=== PATIENT | female | born 1950 | race Caucasian/White ===

== ENCOUNTER → 2017-02-17 | Outpatient (CLI) | payer OTHER ==
[~2017-02-17] MED LIST: ACCUNEB SO1.25 MG/1 INH; AMBIEN 5 MG TABL5 M1 PO; ASPIRIN81 M2 PO; BENADRYL25 MG PO; BUDEPRION SR150 MG PO; BUMETANIDE0.25 MG/1 IM; BUMETANIDE2 MG PO; BUMEX2 MG PO; BUPROPION XL150 MG PO; CARVEDILOL3.125 MG PO; CLARITIN10 MG PO; COMPAZINE10 MG PO; CORTEF10 MG PO; CORTEF5 MG PO; DOXYCYCLINE 10100 M1 PO; DOXYCYCLINE 10100 MG PO; DULCOLAX5 MG PO; DUONEB 2.5-0.5 M3 ML INH; FENTANYL PA25 MCG/HR TP; FISH OIL 1,0001 EAC5 PO; FLOMAX0.4 MG PO; FLONASE 0.05%50 MCG NASAL; FLORINEF ACETA0.1 MG PO; FLUVIRIN IM; FOLIC ACID1 MG PO; HUMALOG MI100 UNIT/1 SQ; HUMALOG MI100 UNIT/1 SUBQ; HUMALOG MI100 UNIT/7 SQ; HYDRALAZINE 10M10 MG PO; IMDUR 60 MG TAB60 M1 PO; KLOR-CON 1010 MEQ PO; LANTUS SOL100 UNIT/1 SUBQ; LANTUS SQ; LASIX 80 MG TAB80 MG PO; LEVOTHYROXIN0.125 M1 PO; LEVOXYL25 MCG PO; MACROBID 100 M100 M2 PO; MILK OF MA2400 MG/10 PO; NEPHRO-VITE RX1 TA1 PO; NEPHROCAPS SOFT1 CAP PO; ONDANSETRON HCL4 M2 PO; PACERONE 200 M200 MG PO; POTASSIUM20 PO; PROTONIX40 M1 PO; RED YEAST RICE600 M1 PO; RENA-VITE RX T1 EACH PO; ROBITUSSIN100 MG/53 PO; SYNTHROID150 MCG PO; SYNTHROID25 MCG PO; TUMS E.S.750 MG PO; TYLENOL325 MG PO; VAN500AD IV; VAN500AD IVPB; VANCOMYCIN500 MG/VIA IV; VITAMIN D-32000 UNIT PO; VITAMIN D1000 UNI1 PO; VITAMIN D3400 UNIT PO; WELCHOL 625 MG625 M1 PO; WELLBUTRIN SR150 MG PO; XANAX 0.25 MG0.25 MG PO; XARELTO15 MG PO; ZAROXOLYN 5MG TA5 MG PO; ZYRTEC10 M2 PO; ZYRTEC10 M4 PO
== END ==
LOC: M.WC 01:48
DX: E11.621 Type 2 diabetes mellitus with foot ulcer (principal); L97.521 Non-pressure chronic ulcer of other part of left foot limited to breakdown of skin; E11.42 Type 2 diabetes mellitus with diabetic polyneuropathy; E11.22 Type 2 diabetes mellitus with diabetic chronic kidney disease; I50.22 Chronic systolic (congestive) heart failure; N18.4 Chronic kidney disease, stage 4 (severe); I87.2 Venous insufficiency (chronic) (peripheral); E03.8 Other specified hypothyroidism; Z68.27 Body mass index [BMI] 27.0-27.9, adult; Z86.711 Personal history of pulmonary embolism; Z98.41 Cataract extraction status, right eye; Z98.42 Cataract extraction status, left eye; Z90.49 Acquired absence of other specified parts of digestive tract

== ENCOUNTER → 2017-03-03 | Outpatient (CLI) | payer OTHER | LOC: M.WC 03-02 09:00 | DX: E11.621 Type 2 diabetes mellitus with foot ulcer (principal); L97.521 Non-pressure chronic ulcer of other part of left foot limited to breakdown of skin; E11.42 Type 2 diabetes mellitus with diabetic polyneuropathy; I87.2 Venous insufficiency (chronic) (peripheral); E03.8 Other specified hypothyroidism; E11.22 Type 2 diabetes mellitus with diabetic chronic kidney disease; N18.4 Chronic kidney disease, stage 4 (severe); I50.22 Chronic systolic (congestive) heart failure; Z68.27 Body mass index [BMI] 27.0-27.9, adult ==

== ENCOUNTER → 2017-03-10 | Outpatient (CLI) | payer OTHER | LOC: M.WC 01:13 | DX: E11.621 Type 2 diabetes mellitus with foot ulcer (principal); L97.521 Non-pressure chronic ulcer of other part of left foot limited to breakdown of skin; I87.2 Venous insufficiency (chronic) (peripheral); E11.42 Type 2 diabetes mellitus with diabetic polyneuropathy; I50.22 Chronic systolic (congestive) heart failure; E03.9 Hypothyroidism, unspecified; E11.22 Type 2 diabetes mellitus with diabetic chronic kidney disease; N18.4 Chronic kidney disease, stage 4 (severe) ==

== ENCOUNTER → 2017-03-17 | Outpatient (CLI) | payer OTHER ==
[2017-03-17 07:58] LABS: POTASSIUM 4.2 mmol/L (3.5-5.1)
== END ==
LOC: M.LAB 04:00
PROVIDERS: Anesthesiology
DX: E11.9 Type 2 diabetes mellitus without complications (principal); Z99.2 Dependence on renal dialysis

== ENCOUNTER 2017-03-25 01:48 | Inpatient (IN) | payer OTHER ==
[~2017-03-25] VITALS: Ht 177.8 cm; Wt 87.1 kg
[~2017-03-25 01:48] MED LIST changes: -BUMETANIDE2 MG PO; -LEVOXYL25 MCG PO; -VAN500AD IVPB; -VANCOMYCIN500 MG/VIA IV; -XARELTO15 MG PO
[2017-03-25 12:00] VITALS: BP 115/72
[2017-03-25 13:39] LABS: ABSOLUTE EOSINOPHILS 0.2 thou/uL (0.0-0.7); ABSOLUTE LYMPHOCYTES 1.9 thou/uL (0.8-5.3); ABSOLUTE MONOCYTES 0.7 thou/uL (0.0-1.2); ABSOLUTE NEUTROPHILS 7.1 thou/uL (1.6-8.1); BASOPHILS 0.4 %; EOSINOPHILS 1.6 %; HEMATOCRIT 38.9 % (37.0-47.0); HEMOGLOBIN 12.3 gm/dL (12.0-15.0); LYMPHOCYTES 18.9 %; MCH 27.5 pg (26.0-34.0); MCHC 31.7 g/dL (28.0-37.0); MCV 86.6 fL (80.0-100.0); MONOCYTES 7.4 %; MPV 10.9 fl. (7.2-11.1); NUCLEATED RBCS 0 /100WBC; PLATELET COUNT* 160 thou/uL (150-400); POLYS 71.7 %; RBC 4.49 mil/uL (4.20-5.00); RDW-CV 14.7 % (10.5-14.5); WBC 9.9 thou/uL (4.0-11.0)
[2017-03-25 13:48] LABS: CALCIUM 8.8 mg/dL (8.5-10.1); CREATININE 1.8 mg/dL (0.6-1.3); POTASSIUM 4.1 mmol/L (3.5-5.1)
[2017-03-25 13:52] LABS: TOTAL BILIRUBIN 0.5 mg/dL (<0.1-1.0)
--- NOTE | 2017-03-25 14:53 | NUR ---
Nutrition: Concult received for open foot wound. Back in [facility], pt had blister on foot; since had gangrenous changes. On vancomycin, insulin. Seen in wound clinic. H/o DM, cellulitis of bilat feet, CHF, renal failure, PVD. Labs: albumin 3, BG 161, BUN 25, creat 1.8. Usual wt is ~200#. Increased nutrient needs related to wound healing as evidenced by open wound on foot. RD will order Arginaid packets for wound healing BID. RECOMMEND MVI OR VIT C, VIT A AND ZINC SUPPLEMENTS FOR WOUND HEALING. Consider Mild risk at this time. Will follow up per protocol.
[2017-03-25 19:45] VITALS: BP 121/65
--- NOTE | 2017-03-25 20:15 | NUR ---
DIRECT ADMIT PT FROM WOUND CLINIC ARRIVED TO AT 1112 VIA PT OWN/PRIVATE W/C. PT A&O X4, SMILING, COOPERATIVE, TALKATIVE. VSS ON RA, PT RIGHT FOOT WITH OPEN WOUND FROM SWELLING AND SKIN OPENING UP, PT DIABETIC AND DID NOT FEEL FOOT UNTIL FLUIDS DRIPPED FROM RIGHT FOOT. PT HAS BEEN WITH WOUND CLINIC FOR LEFT FOOT WHICH IS PRESENTLY PARTIALLY HEALED, LEFT FOOT TOES REMAINED DRESSED. BOTH FEET WERE DRESSED AT WOUND CLINIC PRIOR TO ADMISSION, C/D/I. CONSULTS I.D./DR. SHAW, VASCULAR, WOUND NURSE. PT HAD BEEN WITH HOME HEALTH CARE UNTIL ADMISSION. SPOUSE AT BEDSIDE. ADMISSION COMPLETED. IV STARTED IN LEFT UPPER ARM/22 GAUGE, FLUIDS AND ABT INFUSING, SEE MAR. HOURLY ROUNDING AND ACCU CHECKS COMPLETED. OCCASIONAL SHARP, SHOOTING PAIN BILATERALLY IN FEET, TYLENOL EFFECTIVE. MULTIPLE ABT ALLERGIES, USE CAUTION R/T ALLERGIES. PT UP ONE ASSIST TO BSC, PIVOT ON LEFT FOOT. LCTAB, PERRL, AFEBRILE. REPORT TO ACTIVITIES SPECIALIST FOR CONTINUED CARES.
[2017-03-26 04:30] LABS: ABSOLUTE EOSINOPHILS 0.2 thou/uL (0.0-0.7); ABSOLUTE LYMPHOCYTES 1.6 thou/uL (0.8-5.3); ABSOLUTE MONOCYTES 0.6 thou/uL (0.0-1.2); ABSOLUTE NEUTROPHILS 5.2 thou/uL (1.6-8.1); BASOPHILS 0.4 %; EOSINOPHILS 2.8 %; HEMATOCRIT 34.2 % (37.0-47.0); HEMOGLOBIN 11.1 gm/dL (12.0-15.0); LYMPHOCYTES 20.7 %; MCH 27.9 pg (26.0-34.0); MCHC 32.5 g/dL (28.0-37.0); MCV 85.6 fL (80.0-100.0); MONOCYTES 7.5 %; MPV 10.8 fl. (7.2-11.1); NUCLEATED RBCS 0 /100WBC; PLATELET COUNT* 142 thou/uL (150-400); POLYS 68.6 %; RBC 3.99 mil/uL (4.20-5.00); RDW-CV 14.6 % (10.5-14.5); WBC 7.5 thou/uL (4.0-11.0)
[2017-03-26 04:54] LABS: CALCIUM 8.3 mg/dL (8.5-10.1); CREATININE 1.7 mg/dL (0.6-1.3); POTASSIUM 3.9 mmol/L (3.5-5.1)
--- NOTE | 2017-03-26 05:04 | NUR ---
PT SLEPT AT INTERVALS DURING THE NIGHT, IV FLUIDS AND ANTIBIOTICS GIVEN, PLEASANT, UP ASSIST TO THE BSC, FEET WRAPPED, PRN TYLENOL GIVEN FOR HEADACHE WITH RELIEF, CALL LIGHT IN REACH, BED ALARM ON FOR SAFETY, WILL CONTINUE TO MONITOR
[2017-03-26 07:40] VITALS: BP 113/58
--- NOTE | 2017-03-26 07:53 | CON ---
[address] [address] CONSULTATION Name: ESTHER MIX Room: [address] IN .R.#: [id number] Admission: 03/25/17 Attend Phys: Selvin Vaughn MD Discharge: Date of : 46 Report #: [id number] THIS REPORT FOR: //name// CC: Selvin Vaughn Katlyn Tello DATE OF SERVICE: 03/25/2017 ATTENDING PHYSICIAN: Selvin Vaughn MD REASON FOR EVALUATION: Right distal lower extremity wounds complicated by skin and soft tissue infection and possible deeper involvement. HISTORY OF PRESENT ILLNESS: Chart reviewed. The patient examined. This 66-year-old woman whom I am familiar with, I saw her back in June. She has diabetes mellitus type 2, insulin requiring with severe complications including renal dysfunction, also peripheral neuropathy and vasculopathy who had a longstanding wound involving her left foot she developed without antecedent injury that she is aware of, open wound that drained over the course of the last few hours prior to her admission. She denies significant pain. She has not been systemically ill. No fever or chills. Appetite has been satisfactory. No pulmonary or gastrointestinal related complaints. She is undergoing evaluation. Blood cultures are collected, foot culture did show rare white cells, although many gram-positive cocci. She does have a history of oxacillin-resistant Staph aureus on contralateral foot back in 10/2016. She is empirically started on vancomycin. ALLERGIES: LISTED TO OXYCODONE, CIPROFLOXACIN, CEPHALOSPORINS, PENICILLIN, SULFA, QUINOLONES, CODEINE AND MORPHINE. MEDICATIONS: Include pantoprazole, vancomycin, enoxaparin, carvedilol, hydrocortisone, bupropion, insulin, cholecalciferol, levothyroxine, folic acid and p.r.n. ondansetron. PAST MEDICAL HISTORY: As described above, the diabetes mellitus with severe sequelae. He has had cardiomyopathy with history of congestive heart failure, cardiac dysrhythmias, has an implanted defibrillator was complicated by a staphylococcal infection, has some retinopathy, hypothyroidism and mitral regurgitation. SOCIAL HISTORY: Nonsmoker and no ethanol. FAMILY HISTORY: Noncontributory. REVIEW OF SYSTEMS: As above. Denies any pulmonary [place] [address] CONSULTATION Name: ESTHER MIX Room: [address]#: [id number] Admission: 03/25/17 Attend Phys: Selvin Vaughn MD Discharge: Date of : 46 Report #: [id number] PHYSICAL EXAMINATION: GENERAL: Appears somewhat chronically ill, undernourished, is pleasant, cooperative, in mild distress. VITAL SIGNS: Pending. Otherwise stable. HEENT: Unremarkable. NECK: Supple. LUNGS: Diminished breath sounds. Few scattered crackles at the bases. HEART: Irregular. I do not appreciate a murmur. ABDOMEN: Soft, nontender and nondistended. She has a dressing over her right foot. GENITOURINARY: Deferred. RECTAL: Deferred. LABORATORY DATA: Lactic acid 1.7. Electrolytes: Sodium 136, potassium 4.1, chloride 104, bicarbonate is 23, BUN and creatinine 25 and 1.8. LFTs are unremarkable. Albumin of 3.0. Total protein 7.0. Estimated GFR of 28. CBC: White count 9.9, H and H 12.3 and 38.9 and platelets of 160. Cultures as described above. ASSESSMENT: Distal right lower extremity skin and soft tissue infection. Evaluation in progress. Certainly may track deeper. At this point, I do not have any imaging studies. Continue empiric therapy. She has a history of MRSA, last fall and gram-positive cocci on Gram stain. She has had multiple hypersensitivities as well. Thank you. We will follow. Noted vascular surgery to evaluate. <ELECTRONICALLY SIGNED> By: Jonathan Perez MD 03/26/17 0753 1556 [id number] Perez MD /nt
[2017-03-26 08:22] VITALS: BP 119/83
--- NOTE | 2017-03-26 09:45 | NUR ---
ASSUMED CARES. ASSESSMENT PERFORMED AND DOCUMENTED. IV FLUIDS ARE RUNNING. A&OX4 DENIES PAIN, DIFFICULTY BREATHING, WANTS AND NEEDS. RIGHT AND LEFT FOOT ARE WRAPPED. WILL INSPECT WITH WOUND CARE. SPOUSE AT BED SIDE. CALL LIGHT IS IN REACH AND BED IN LOWEST POSITION. GOAL TO CONTROL PAIN. WILLC ONTINUE WITH PLAN OF CARE
--- NOTE | 2017-03-26 11:05 | NUR ---
SW met with pt and pt bedside to complete initial assessment, introduce self, and SW role. Pt alert, oriented, pleasant. Pt lives at home with . Pt has history with [facility] , Binh BRISENO, [facility] and pt has a walker. SW to continue to follow to assist with safe dc planning.
--- NOTE | 2017-03-26 11:43 | NUR ---
WOUND CARE NOTE: CONSULT RECEIVED FOR RIGHT FOOT WOUND, OLD WOUND LEFT FOOT. DRESSING WAS JUST CHANGED BY VASCULAR, WILL DEFER ASSESSMENT. SPOKE WITH DR. WADE, WOUND CARE ORDERS FROM WOUND CENTER STARTED.
--- NOTE | 2017-03-26 13:19 | 2DMMODE ---
[place] [address] 2 D/M-MODE ECHOCARDIOGRAM Name: ESTHER MIX Room: [address] IN [facility]#: [id number] Admission: 03/25/17 Attend Phys: Selvin Vaughn, Discharge: Date of : 46 Date of Service: 03/26/17 1318 Report #: [id number] THIS REPORT FOR: //name// APPROVED REPORT Study performed: 03/26/2017 11:28:28 EXAM: Comprehensive 2D, Doppler, and color-flow Echocardiogram Patient Location: In-Patient Room #: [facility] Status: routine BSA: 2.05 HR: 67 bpm BP: 119/83 mmHg Rhythm: NSR Other Information Study Quality: Fair Indications Atrial Fibrillation Cardiomyopathy 2D Dimensions IVSd: 12.81 (7-11mm) LVOT Diam: 18.79 (18-24mm) LVDd: 57.35 mm PWd: 10.72 (7-11mm) Ascending Ao: 30.41 (22-36mm) LVDs: 40.49 (25-40mm) Aortic Root: 36.54 mm Volumes Left Atrial Volume (Systole) LA ESV Index: 33.20 mL/m2 Aortic Valve AoV Peak Seamus.: 1.38 m/s AO Peak Gr.: 7.56 mmHg LVOT Max P.18 mmHg AO Mean Gr.: 4.35 mmHg LVOT Mean P.39 mmHg LVOT Max V: 0.89 m/s AO V2 VTI: 30.31 cm LVOT Mean V: 0.53 m/s CODY (VTI): 1.77 cm2 LVOT V1 VTI: 19.33 cm Mitral Valve E/A Ratio: 0.70 MV Decel. Time: 311.68 [place] [address] 2 D/M-MODE ECHOCARDIOGRAM Name: ESTHER MIX Room: [address] IN [facility]#: [id number] Admission: 03/25/17 Attend Phys: Selvin Vaughn, Discharge: Date of : 46 Date of Service: 03/26/17 1318 Report #: [id number] MV E Max Seamus.: 0.82 m/s MV PHT: 90.39 ms MVA (PHT): 2.43 cm2 TDI E/Lateral E': 13.67 E/Medial E': 13.67 Medial E' Seamus.: 0.06 m/s Lateral E' Seamus.: 0.06 m/s Pulmonary Valve PV Peak Seamus.: 0.92 m/s PV Peak Gr.: 3.42 mmHg Tricuspid Valve TR Peak Gr.: 23.98 mmHg RVSP: 28.00 mmHg Left Ventricle Left ventricle is mildly dilated.. There is global hypokinesis of the left ventricle. There is normal left ventricular wall thickness. Left ventricular systolic function is mildly decreased. LVEF is 25-30%. Grade I - abnormal relaxation pattern. Right Ventricle The right ventricle is normal size. The right ventricular systolic function is normal. Pacemaker lead is present in the right ventricle. Atria Left atrium is mildly dilated. The right atrium size is normal. Aortic Valve The aortic valve is normal in structure. No aortic regurgitation is present. There is no aortic valvular stenosis. Mitral Valve The mitral valve is normal in structure. Mild mitral regurgitation. No evidence of mitral valve stenosis. Tricuspid Valve The tricuspid valve is normal in structure. Mild tricuspid regurgitation. The RVSP is 35____ mmHg. Pulmonic Valve Pulmonic valve is not well visualized. There is no pulmonic valvular regurgitation[place] [address] 2 D/M-MODE ECHOCARDIOGRAM Name: ESTHER MIX Room: [address] IN [facility]#: [id number] Admission: 03/25/17 Attend Phys: Selvin Vaughn, Discharge: Date of : 46 Date of Service: 03/26/17 1318 Report #: [id number] The aortic root is normal in size. IVC is not well visualized. Pericardium There is no pericardial effusion. <Conclusion> Left ventricle is mildly dilated.. LVEF is 25-30%. Mild mitral regurgitation. There is global hypokinesis of the left ventricle. <ELECTRONICALLY SIGNED> By: Chilo Norris MD, FACC 03/26/17 1318 1318 1318 Chilo Norris MD, FACC /INF
--- NOTE | 2017-03-26 17:59 | NUR ---
ASSUMED CARE OF PT AT APPROXIMATELY 1645. REPORT RECEIVED FROM NETTIE TEJADA. THIS RN AGREES WITH PREVIOUS OPERATOR WEAPON LOCATING RADAR. PT JUST FINISHED WITH ABDOMINAL AORTIC ULTRASOUND. DIET RE ORDERED FOR DINNER AND PT GIVEN 1700 COREG ALONG WITH HOME POTASSIUM. REFER TO EMAR. PT BLOOD GLUCOSE 108 AND DIDNT REQUIRE INSULIN. PT CALLS APPROPRIATELY. A&0X4. DENIES ANY PAIN OR SHORTNESS OF BREATH AT THIS TIME. ON RA SAT UPPER 90'S. MED/SURG STATUS. MEDICATIONS PER APR. PT REPOSITIONED EVERY 2 HOURS FOR COMFORT. HOURLY ROUNDING OBSERVED. BED IN LOW POSITION. CALL LIGHT WITHIN REACH. WILL CONTINUE PLAN OF CARE.
[2017-03-26 20:00] VITALS: BP 126/68
--- NOTE | 2017-03-27 05:14 | NUR ---
PT SLEPT AT INTERVALS DURING THE NIGHT, PLEASANT, RIGHT FT DRG REMAINS C/D/I AND LEFT FOOT OPEN TO AIR, PRN TYLENOL AT HS FOR FOOT PAIN, UP WITH SBA TO THE BSC, IV ANTIBIOTICS GIVEN, CALL LIGHT IN REACH, BED ALARM ON FOR SAFETY, WILL CONTINUE TO MONITOR
[2017-03-27 08:40] VITALS: BP 123/60
[2017-03-27 16:23] VITALS: BP 150/77
--- NOTE | 2017-03-27 17:30 | NUR ---
PT ALERT AND ORIENTED X4. PT ADMITTED WITH CELLULITIS OF RIGHT FOOT. DRESSING CHANGED WITH XEROFORM AND CURLEX BANDAGE WRAPPED AORUND THE WOUND. THE WOUND IS NECROTIC WITH GTANGRENE PRESENT AND CLEANED WITH WOUND CLEANSER. DRESSING IS TO BE CHANGED DAILY ORDERED. PT DENIES ANY FEELING OR PAIN PRESENT IN THE RIGHT OR LEFT FOOT. THE LEFT FOOT IS HEALING, DRY, WITH SLIGHT SCABBING ON TOES. BETADINE ORDERED TO BE BRUSHED ON IT WITH NO DRESSING PLACED ON TOP OF IT. PT RECEIVED FLU VACCINE TODAY. PT HAD A BOWEL MOVEMENT TODAY. PT HAS A LEFT UPPER ARM IV, 22G, SALINE LOCKED. VANCOMYCIN WAS RUNNING THROUGH IT, BVUT VANC TROUGH CAME BACK at 24, VANC DOSE SKIPPED FOR TODAY AND WILL RESTART TOMORROW WITH A LOWERED DOSE. FALL RISK PRECAUTIONS IN PLACE. WILL CONTINUE TO MONITOR.
--- NOTE | 2017-03-27 19:34 | NUR ---
I HAVE REVIEWED THE DOCUMENTATION BY TAYLOR ESCOBAR, STUDENT NURSE AND AGREE WITH THE DOCUMENTED INTERVENTIONS AND ASSESSMENTS.
[2017-03-27 20:00] VITALS: BP 140/72
[2017-03-28 04:40] LABS: HEMATOCRIT 32.2 % (37.0-47.0); HEMOGLOBIN 10.6 gm/dL (12.0-15.0); MCH 28.1 pg (26.0-34.0); MCV 85.3 fL (80.0-100.0); MPV 11.2 fl. (7.2-11.1); RBC 3.78 mil/uL (4.20-5.00); RDW-CV 14.4 % (10.5-14.5); WBC 6.7 thou/uL (4.0-11.0)
[2017-03-28 05:13] LABS: CALCIUM 8.5 mg/dL (8.5-10.1); CREATININE 1.4 mg/dL (0.6-1.3); POTASSIUM 4.2 mmol/L (3.5-5.1)
--- NOTE | 2017-03-28 05:24 | NUR ---
PT SLEPT MOST OF SHIFT. ASSESSMENT DOCUMENTED. MEDS GIVEN PER E-APR. PT HAD NO REPORTS OF PAIN. IV PATENT. PT UP TO BSC THROUGH NIGHT. DRESSING ON FOOT REMAINED C/D/I. ISOLATION MAINTAINED. NO CONCERNS AT THIS TIME.
[2017-03-28 09:25] VITALS: BP 124/64
[2017-03-28 16:34] VITALS: BP 136/69
--- NOTE | 2017-03-28 17:32 | NUR ---
PATIENT HAS BEEN A/O X 4 THIS SHIFT. HAS DENIED PAIN OR DISCOMFORT TO FEET. DRESSINGS CHANGED TO FEET BILATERALLY. IV SALINE LOCKED. UP WITH ASSIST TO BSC, HEEL WEIGHT BEARING TO LEFT FOOT AND NON WEIGHT BEARING TO RIGHT FOOT. PT ORDERED. IV VANCOMYCIN RESUMED, VANC TROUGH BACK AT 15. AT BEDSIDE THIS SHIFT. REMAINS IN CONTACT ISOLATION FOR MRSA. HOURLY ROUNDING COMPLETED. CALL LIGHT WITHIN REACH. WILL CONTINUE WITH PLAN OF CARE.
[2017-03-28 19:30] VITALS: BP 134/66
--- NOTE | 2017-03-29 05:00 | NUR ---
PT SLEPT MOST OF SHIFT. ASSESSMENT DOCUMENTED. MEDS GIVEN PER E-MAR. IV PATENT. NO REPORTS OF PAIN. PT ASKING ABOUT BEING DISCHARGED. NO CONCERNS AT THIS TIME.
[2017-03-29 10:00] VITALS: BP 132/66
[2017-03-29] MEDS ORDERED: VAN500AD IVPB (13:40)
--- NOTE | 2017-03-29 16:05 | NUR ---
I have reviewed the documentation by EDI COLON from 03/29/17 to 03/29/17 and I concur with it. ALMA LAWTON
[2017-03-29 16:12] VITALS: BP 132/66
--- NOTE | 2017-03-29 16:21 | NUR ---
ASSUMED CARES OF PT AT 0700. PT IN BED, BED IN LOW AND LOCKED POSITION, FALL PRECAUTIONS IN PLACE. CALL BUTTON AND PERSONAL ITEMS IN PT REACH. PT A&O X4/OCC. FORGETFUL, HRRR, VSS ON RA, AFEBRILE, PERRL, TALKATIVE, SMILING. WOUND CARE GIVING CARES FOR RIGHT AND LEFT FOOT WOUNDS. DRESSSING ON RIGHT FOOT SMALL SEEPAGE, PHOTOS TAKEN LESS THAN 24 HOURS AGO. PT UP WITH ONE ASSIST/GAIT BELT. NON WEIGHT BEARING RIGHT FOOT, HEEL TOUCH LEFT FOOT, SURGICAL BOOTS TO BE WORN IN TRANSFERS AND AMBULATION. PT RECEIVING TICC LINE PER DR. REVELES FOR HOME ABT TREATMENT, SEE ORDERS PER DR. SHAW. HOME HEALTH TO MONITOR AND CONTINUE WITH PLAN OF CARE. LEFT UA IV PATENT TO FLUSH, SALINE LOCKED. HOURLY ROUNDING AND ACCU CHECKS CONTINUE. PT DISCHARGE WITH HOME HEALTH BEING SCHEDULED PER INSPECTOR WATCH PARTS. WILL CONTINUE TO MONITOR.
[2017-03-29 16:31] VITALS: BP 132/66
--- NOTE | 2017-03-29 16:34 | NUR ---
SIERRA called Sophia with [facility] (pt preference and used agency in the past) and also faxed referral to [phone] for IV Antibiotics. Sophia accepted referral, checked benefits and confirmed that they will bring out IV abx to pt home tonight. Pt preference for [facility], SIERRA faxed referral, orders, med list to [facility] at [phone] and spoke with Debbi who accepted referral and confirmed that a nurse will meet with pt tomorrow.
[2017-03-29 18:50] VITALS: BP 132/66
--- NOTE | 2017-03-29 19:37 | NUR ---
PT CLEARED FOR DISCHARGE HOME WITH . PT RECEIVED TICC LINE BY DR. REVELES IN IR ON LEFT SIDE AND RECEIVED IV DOSE VANC, TOLERATED, NO AVR. IV IN LEFT UPPER ARM REMOVED. PT CONTINUES TO BE STABLE, VSS ON RA. PT EDUCATED ON DISCHARGE ORDERS, FOLLOW UP APPTS, WOUND CARE, HOME HEALTH, STROKE RISKS AND SYMPTOMS. PT SIGNED MEDICARE AND DISCHARGE FORMS. HOURLY ROUNDING AND ACCU CHECKS COMPLETED. PT ESCORTED VIA WC WITH NURSING STAFF TO SPOUSE AND CAR TO GO HOME. PT SMILING, TALKATIVE, STATES SHE IS READY TO GO HOME. DRESSING ON RIGHT FOOT C/D/I. SURGICAL BOOT ON FEET BILATERALLY. PT DENIES PAIN AT D/C. D/C COMPLETED AT 1850.
== END 2017-03-29 18:50 | disposition home health service (06) | DRG 300 ==
LOC: M.WC 01:48 → M.3W 10:39
PROVIDERS: Internal Medicine; ADMIT Internal Medicine
PROC: 3E0436Z Introduction of Nutritional Substance into Central Vein, Percutaneous Approach (ICD-10-PCS; principal; 2017-03-25)
PROC: 02HV33Z Insertion of Infusion Device into Superior Vena Cava, Percutaneous Approach (ICD-10-PCS; principal; 2017-03-25)
PROC: B5181ZA Fluoroscopy of Superior Vena Cava using Low Osmolar Contrast, Guidance (ICD-10-PCS; principal; 2017-03-25)
DX: E11.52 Type 2 diabetes mellitus with diabetic peripheral angiopathy with gangrene (principal); I48.92 Unspecified atrial flutter; I42.9 Cardiomyopathy, unspecified; N17.9 Acute kidney failure, unspecified; E44.1 Mild protein-calorie malnutrition; I50.42 Chronic combined systolic (congestive) and diastolic (congestive) heart failure; E11.621 Type 2 diabetes mellitus with foot ulcer; N18.9 Chronic kidney disease, unspecified; E03.9 Hypothyroidism, unspecified; E11.22 Type 2 diabetes mellitus with diabetic chronic kidney disease; B95.62 Methicillin resistant Staphylococcus aureus infection as the cause of diseases classified elsewhere; Z88.6 Allergy status to analgesic agent; Z88.1 Allergy status to other antibiotic agents; Z88.0 Allergy status to penicillin; Z88.2 Allergy status to sulfonamides; Z88.8 Allergy status to other drugs, medicaments and biological substances; Z23 Encounter for immunization

== ENCOUNTER → 2017-03-31 | Outpatient (CLI) | payer OTHER ==
[~2017-03-31] MED LIST changes: +BUMETANIDE2 MG PO; +LEVOXYL25 MCG PO; +VAN500AD IVPB; +VANCOMYCIN500 MG/VIA IV; +XARELTO15 MG PO
== END ==
LOC: M.WC 01:44
DX: E11.621 Type 2 diabetes mellitus with foot ulcer (principal); L97.521 Non-pressure chronic ulcer of other part of left foot limited to breakdown of skin; L97.511 Non-pressure chronic ulcer of other part of right foot limited to breakdown of skin; I70.235 Atherosclerosis of native arteries of right leg with ulceration of other part of foot; I70.245 Atherosclerosis of native arteries of left leg with ulceration of other part of foot; E11.42 Type 2 diabetes mellitus with diabetic polyneuropathy; E11.22 Type 2 diabetes mellitus with diabetic chronic kidney disease; I50.22 Chronic systolic (congestive) heart failure; I87.2 Venous insufficiency (chronic) (peripheral); E03.8 Other specified hypothyroidism; N18.4 Chronic kidney disease, stage 4 (severe); I25.10 Atherosclerotic heart disease of native coronary artery without angina pectoris; L84 Corns and callosities; M79.671 Pain in right foot; Z68.27 Body mass index [BMI] 27.0-27.9, adult; Z90.49 Acquired absence of other specified parts of digestive tract; Z98.42 Cataract extraction status, left eye; Z98.41 Cataract extraction status, right eye

== ENCOUNTER → 2017-04-07 | Outpatient (CLI) | payer OTHER ==
[~2017-04-07] VITALS: Ht 177.8 cm; Wt 97.5 kg
[2017-04-07 11:22] LABS: ABSOLUTE BASOPHILS 0.1 thou/uL (0.0-0.2); ABSOLUTE EOSINOPHILS 0.6 thou/uL (0.0-0.7); ABSOLUTE LYMPHOCYTES 1.9 thou/uL (0.8-5.3); ABSOLUTE MONOCYTES 0.7 thou/uL (0.0-1.2); ABSOLUTE NEUTROPHILS 5.9 thou/uL (1.6-8.1); BASOPHILS 1.1 %; EOSINOPHILS 6.2 %; HEMATOCRIT 39.4 % (37.0-47.0); HEMOGLOBIN 12.8 gm/dL (12.0-15.0); LYMPHOCYTES 20.5 %; MCH 27.5 pg (26.0-34.0); MCHC 32.4 g/dL (28.0-37.0); MCV 84.8 fL (80.0-100.0); MONOCYTES 7.7 %; NUCLEATED RBCS 0 /100WBC; PLATELET COUNT* 246 thou/uL (150-400); POLYS 64.5 %; RBC 4.65 mil/uL (4.20-5.00); WBC 9.1 thou/uL (4.0-11.0)
[2017-04-07 11:30] LABS: ANION GAP 9 mmol/L (7-16); BUN 30 mg/dL (7-18); CALCIUM 9.1 mg/dL (8.5-10.1); CHLORIDE 103 mmol/L (98-107); CO2 25 mmol/L (21-32); CREATININE 2.2 mg/dL (0.6-1.3); GLUCOSE 242 mg/dL (70-99); POTASSIUM 3.9 mmol/L (3.5-5.1); SODIUM 137 mmol/L (136-145)
[2017-04-07 11:34] LABS: APTT 32.4 Seconds (25.0-31.3); INR 1.2; PROTIME 12.1 Seconds (9.20-11.50)
[2017-04-07 11:41] LABS: ALBUMIN 3.1 g/dL (3.4-5.0); ALKALINE PHOSPHATASE 83 U/L (46-116); NT-PRO BRAIN NAT PEPTIDE 1278 pg/mL (<300); SGOT 31 U/L (15-37); SGPT 24 U/L (30-65); TOTAL BILIRUBIN 0.5 mg/dL (<0.1-1.0); TOTAL PROTEIN 7.3 g/dL (6.4-8.2); TROPONIN-I LEVEL <0.06 ng/mL (<0.06)
[2017-04-07 12:57] VITALS: BP 142/71
--- NOTE | 2017-04-07 16:38 | EKG ---
[place] [address] ELECTROCARDIOGRAM REPORT Name: ESTHER MIX Abelardo [facility] [id number] Admission: 04/07/17 Attend Phys: FOR E.D. 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: Franko STARKS : 1950 Requested By: Cuco Tabor Order Number: [id number] MD: Chilo Norris Measurements Intervals [place] Rate: 63 P: 66 UT: 211 QRS: -28 QRSD: 104 T: 116 QT: 501 QTc: 513 Interpretive Statements Sinus rhythm Borderline left axis deviation Low voltage, precordial leads Nonspecific T abnormalities, lateral leads Prolonged QT interval Baseline wander in lead(s) V1,V2,V3,V5,V6 Compared to ECG 08/01/2015 12:40:12 Prolonged QT interval now present Atrial fibrillation no longer present ST (T wave) deviation still present Electronically Signed On 04-07-2017 16:38:10 INSURANCE POLICY ISSUE CLERK by Chilo Norris [email or web address] <ELECTRONICALLY SIGNED> By: Chilo Norris MD, [facility] 04/07/17 1638 1102 1102 Chilo Norris MD, [facility] /EPI
== END ==
LOC: M.WC 01:36 → M.ERS 01:36 → M.WC 10:00
PROVIDERS: Family Medicine
DX: R53.1 Weakness (principal); E03.9 Hypothyroidism, unspecified; E11.9 Type 2 diabetes mellitus without complications; Z79.4 Long term (current) use of insulin; I50.9 Heart failure, unspecified; N19 Unspecified kidney failure

== ENCOUNTER → 2017-04-21 | Outpatient (CLI) | payer OTHER | LOC: M.WC 04:46 | DX: E11.621 Type 2 diabetes mellitus with foot ulcer (principal); I87.2 Venous insufficiency (chronic) (peripheral); L97.511 Non-pressure chronic ulcer of other part of right foot limited to breakdown of skin; L97.521 Non-pressure chronic ulcer of other part of left foot limited to breakdown of skin; E11.42 Type 2 diabetes mellitus with diabetic polyneuropathy; I25.10 Atherosclerotic heart disease of native coronary artery without angina pectoris; E03.9 Hypothyroidism, unspecified; I50.22 Chronic systolic (congestive) heart failure; E11.22 Type 2 diabetes mellitus with diabetic chronic kidney disease; N18.4 Chronic kidney disease, stage 4 (severe) ==

== ENCOUNTER 2017-04-30 10:27 | Inpatient (IN) | payer OTHER ==
[~2017-04-30] VITALS: Ht 177.8 cm; Wt 86.2 kg
[~2017-04-30 10:27] MED LIST changes: -BUMETANIDE2 MG PO; -LEVOXYL25 MCG PO; -VANCOMYCIN500 MG/VIA IV; -XARELTO15 MG PO
[2017-04-30 10:35] VITALS: BP 131/75
[2017-04-30 11:39] LABS: ABSOLUTE BASOPHILS 0.1 thou/uL (0.0-0.2); ABSOLUTE EOSINOPHILS 0.4 thou/uL (0.0-0.7); ABSOLUTE LYMPHOCYTES 1.9 thou/uL (0.8-5.3); ABSOLUTE MONOCYTES 0.6 thou/uL (0.0-1.2); ABSOLUTE NEUTROPHILS 4.4 thou/uL (1.6-8.1); BASOPHILS 0.8 %; EOSINOPHILS 5.6 %; HEMATOCRIT 38.2 % (37.0-47.0); HEMOGLOBIN 12.4 gm/dL (12.0-15.0); LYMPHOCYTES 25.5 %; MCH 27.3 pg (26.0-34.0); MCHC 32.3 g/dL (28.0-37.0); MCV 84.5 fL (80.0-100.0); MONOCYTES 8.5 %; MPV 10.5 fl. (7.2-11.1); NUCLEATED RBCS 0 /100WBC; PLATELET COUNT* 197 thou/uL (150-400); POLYS 59.6 %; RBC 4.53 mil/uL (4.20-5.00); RDW-CV 15.4 % (10.5-14.5); WBC 7.4 thou/uL (4.0-11.0)
[2017-04-30 11:48] LABS: CREATININE 2.1 mg/dL (0.6-1.3); POTASSIUM 4.1 mmol/L (3.5-5.1)
[2017-04-30 11:53] LABS: ALBUMIN 3.3 g/dL (3.4-5.0); TOTAL BILIRUBIN 0.4 mg/dL (<0.1-1.0); TOTAL PROTEIN 6.9 g/dL (6.4-8.2)
[2017-04-30 12:45] LABS: ESR (SEDRATE) 40 mm/hr (0-30)
--- NOTE | 2017-04-30 13:39 | NUR ---
PT GIVEN LUNCH BY DIETARY
[2017-04-30 13:57] VITALS: BP 139/70
--- NOTE | 2017-04-30 14:15 | NUR ---
PT TO ROOM 225. PT ORIENTED TO UNIT,CALL LIGHT WITHIN REACH. PT HAS TIC LINE TO LEFT CHEST WHICH SHE STATES WAS PLACED APPROX 4 WEEKS AGO. PT LEFT FOOT BLUE TO MID FOOT BUT PINK COLOR RETURNS AFTER WARM BLANKET APPLIED AND FOOT ELEVATED. PULSES + WITH DOPPLER
[2017-04-30] MEDS ORDERED: BUMETANIDE2 MG PO (15:13)
[2017-04-30] MEDS ORDERED: LEVOXYL25 MCG PO (15:23)
[2017-04-30] MEDS ORDERED: XARELTO15 MG PO (15:24)
[2017-04-30 16:10] VITALS: BP 162/90
--- NOTE | 2017-04-30 17:35 | NUR ---
PT UP TO UNIT THIS AFTERNOON. PT DENIES PAIN OR OTHER NEEDS. SEEN BY VASCULAR THIS AFTERNOON.
[2017-04-30 20:00] VITALS: BP 124/65
[2017-05-01 00:08] VITALS: BP 116/57
[2017-05-01 03:33] VITALS: BP 118/51
--- NOTE | 2017-05-01 05:39 | NUR ---
PT CARE ASSUMED AFTER REPORT. ASSESSMENT COMPLETE. ST/1ST DEGREE ON MONITOR. DENIES PAIN. FALL PRECAUTIONS IN PLACE INCLUDING BED ALARM. UP TO BSC WITH MIN ASSIST. IVF INFUSING. CALL LIGHT IN REACH. BED IN LOWEST POSITION. PROGRESSING TOWARDS GOALS.
[2017-05-01 06:09] LABS: HEMATOCRIT 30.3 % (37.0-47.0); MCH 27.9 pg (26.0-34.0); MCV 84.7 fL (80.0-100.0); MPV 10.6 fl. (7.2-11.1); RBC 3.57 mil/uL (4.20-5.00); RDW-CV 15.8 % (10.5-14.5); WBC 4.8 thou/uL (4.0-11.0)
[2017-05-01 06:33] LABS: CALCIUM 8.4 mg/dL (8.5-10.1); CREATININE 1.7 mg/dL (0.6-1.3); MAGNESIUM 2.2 mg/dL (1.8-2.4); POTASSIUM 3.5 mmol/L (3.5-5.1); TROPONIN-I LEVEL 0.07 ng/mL (<0.06)
[2017-05-01 08:30] VITALS: BP 162/69
[2017-05-01 12:00] VITALS: BP 131/77
--- NOTE | 2017-05-01 12:47 | NUR ---
RECEIVED REPORT AND ASSUMED CARE AT 0730. VSS. CARDIAC MONITORING IN PLACE. PT DENIES ANY COMPLAINTS OF PAIN. ASSESSMENT COMPLETED AND CHARTED. PT ON RA. PT UP SBA TO COMMODE. DISCUSSED PLAN OF CARE WITH PT, VERBALIZED UNDERSTANDING. BED IN LOWEST POSITION, CALL LIGHT WITHIN REACH, BED ALARM ON. WILL CONTINUE TO MONITOR FOR REMAINDER OF SHIFT
[2017-05-01 16:21] VITALS: BP 131/77
[2017-05-01] MEDS ORDERED: VANCOMYCIN500 MG/VIA IV (16:40)
[2017-05-01 16:45] VITALS: BP 131/77
--- NOTE | 2017-05-01 17:44 | NUR ---
PT.TO BE DISCHARGED TODAY WITH HOME HEALTH NURSING. SHE IS CURRENTLY ON SERVICE WITH [facility]. NOTIFIED TAMARA/[facility] AND FAXED HER ORDERS. NEW ORDER FOR IV VANC 500MG Q12HRS. X 14 DAYS. PT.SAID SHE HAS BBEN OFF IT FOR ABOUT A WEEK AND A HALF. NSG.TO GIVE DOSE THIS CHRISTIANA BEFORE DISCHARGE AND NEXT DOSE PER MILIRN WILL BE 9AM TOMORROW. TAMARA NOTIFIED OF THIS. SPOKE WITH KRISTIAN/PHARMACIST AT [facility]. FAXED DISCHARGE ORDERS,MED LIST AND ALLERGIES TO [facility] AT [phone]. KRISTIAN WILL HAVE DRUG DELIVERED TONIGHT TO PT.AT HOME.
--- NOTE | 2017-05-01 18:34 | NUR ---
DISCHARE ORDERS RECEIVED AND PREPARED. CARDIAC MONTIROING DISCONTINUED. TICC LINE LEFT IN PLACE FOR IV ABX. HH SET UP. DISCHARGE ORDERS DISCUSSED WITH PT. PT COMMUNCIATES UNDERSTANDING. ALL QUESTIONS AND CONCERNS ANSWERED AT THIS TIME. PT GIVEN COPY OF DISCHARGE PAPERWORK AND SCRIPT. PT'S PERSONAL BELONGINGS GATHERED AND SENT HOME WT PT. HOME MED RETURNED TO PT. PT ESCORTED OFF UNIT VIA W/C. PT LEFT IN PRIVATE VEHICLE.
--- NOTE | 2017-05-02 04:40 | CON ---
[address] [address] CONSULTATION Name: ESTHER MIX Room: [address]#: [id number] Admission: 04/30/17 Attend Phys: Damir Velazquez, Discharge: 05/01/17 Date of : 46 Report #: [id number] THIS REPORT FOR: //name// CC: Katlyn Velazquez DATE OF SERVICE: 05/01/2017 INFECTIOUS DISEASE CONSULTATION ATTENDING PHYSICIAN: Dr. Damir Velazquez. REASON FOR CONSULTATION: Ulcerations dose. HISTORY OF PRESENT ILLNESS: A 66-year-old white woman admitted from the [facility] with ischemic toes. This is ongoing for a long time. The patient denies significant pain. No fevers. PAST MEDICAL HISTORY: Diabetes mellitus; chronic kidney disease, dialysis for a while. Congestive heart failure. Left elbow fracture. Cholecystectomy. Status post implanted defibrillator removal in 2005 after a Staphylococcus infection, back surgery, left arm shunt placement and subsequent removal. Retinopathy to the right eye, rectocele and cystocele surgery. History of atrial flutter. Hypothyroidism. DRUG ALLERGIES: OXYCODONE, CIPROFLOXACIN, CEPHALEXIN, PENICILLIN, SULFA, QUINOLONES, LIDOCAINE, MORPHINE AND CEFAZOLIN. MEDICATIONS: She is on treatment with hydrocortisone 10 mg daily, cholecalciferol, multivitamin, folic acid, bumetanide, potassium chloride supplementation, bupropion, loratadine, levothyroxine, vancomycin 500 mg b.i.d., rivaroxaban, insulin lispro per sliding scale, p.r.n. glucose, glucagon and p.r.n. fentanyl. SOCIAL HISTORY: See H and P. FAMILY HISTORY: See H and P. REVIEW OF SYSTEMS: The patient denies nausea, vomiting, diarrhea, fevers or pain. Essentially noncontributory. PHYSICAL EXAMINATION: GENERAL: Chronically ill-appearing woman, afebrile since admission. VITAL SIGNS: Temperature 98.5, pulse 69, respirations 16 and BP 118/51. Height 5 feet 10 inches, weight 190 pounds. HEENT: Pupils reactive. Conjunctivae pale. [place] [address] CONSULTATION Name: ESTHER MIX Room: [address]#: [id number] Admission: 04/30/17 Attend Phys: Damir Velazquez, Discharge: 05/01/17 Date of : 46 Report #: [id number] NECK: Supple. LUNGS: Clear. HEART: S1, S2. ABDOMEN: Soft surgical scars. EXTREMITIES: Chronic ischemic changes in all 5 toe tips on the right foot and left big toe. The femoral pulses are palpable, but I do not detect dorsalis pedis or posterior tibialis. NEUROLOGIC: Grossly within normal limits. LABORATORY DATA: Sodium 142, potassium 4.1, BUN 31 and creatinine 2.1. Albumin 3.3. WBC 7.4, hemoglobin 12.4 and platelets 197,000. White blood cell count differential normal. Sed rate 40 mm per hour. CRP 10 mg per dL. Blood cultures were obtained. Note is made she had MRSA on the foot in March of this year. RADIOLOGIC EVALUATION: X-rays of the foot revealed no obvious bony destruction. ASSESSMENT: 1. Ischemic changes, both feet. 2. Multiple drug allergies. 3. Chronic kidney disease. SUGGESTIONS: Vascular consultation needed. Continue vancomycin. The patient is not septic looking. Dr. Velazquez, thank you for requesting our suggestions. <ELECTRONICALLY SIGNED> By: Min Gonzales MD 05/02/17 0440 0503 [id number] Gonzales MD /nt
== END 2017-05-01 18:39 | disposition home health service (06) | DRG 542 ==
LOC: M.ERS 10:27 → M.2W 11:10 → M.TBA-ER 11:10 → M.2W 14:20
PROVIDERS: Physician Assistant; ADMIT Family Medicine
DX: M80.071A Age-related osteoporosis with current pathological fracture, right ankle and foot, initial encounter for fracture (principal); N17.0 Acute kidney failure with tubular necrosis; I50.42 Chronic combined systolic (congestive) and diastolic (congestive) heart failure; I48.92 Unspecified atrial flutter; N18.4 Chronic kidney disease, stage 4 (severe); I42.9 Cardiomyopathy, unspecified; E11.51 Type 2 diabetes mellitus with diabetic peripheral angiopathy without gangrene; E03.9 Hypothyroidism, unspecified; E11.22 Type 2 diabetes mellitus with diabetic chronic kidney disease; I25.10 Atherosclerotic heart disease of native coronary artery without angina pectoris; E11.621 Type 2 diabetes mellitus with foot ulcer; E11.42 Type 2 diabetes mellitus with diabetic polyneuropathy; I70.202 Unspecified atherosclerosis of native arteries of extremities, left leg; E11.319 Type 2 diabetes mellitus with unspecified diabetic retinopathy without macular edema; Z87.81 Personal history of (healed) traumatic fracture; Z90.49 Acquired absence of other specified parts of digestive tract; Z95.810 Presence of automatic (implantable) cardiac defibrillator; Z79.01 Long term (current) use of anticoagulants; Z79.51 Long term (current) use of inhaled steroids; Z79.4 Long term (current) use of insulin; Z79.899 Other long term (current) drug therapy; Z88.0 Allergy status to penicillin; Z88.1 Allergy status to other antibiotic agents; Z88.2 Allergy status to sulfonamides; Z88.5 Allergy status to narcotic agent; Z88.8 Allergy status to other drugs, medicaments and biological substances; Z91.018 Allergy to other foods

== ENCOUNTER → 2017-04-30 | Outpatient (CLI) | payer OTHER | LOC: M.WC 04-28 01:54 | DX: E11.621 Type 2 diabetes mellitus with foot ulcer (principal); I87.2 Venous insufficiency (chronic) (peripheral); L97.511 Non-pressure chronic ulcer of other part of right foot limited to breakdown of skin; L97.521 Non-pressure chronic ulcer of other part of left foot limited to breakdown of skin; E11.42 Type 2 diabetes mellitus with diabetic polyneuropathy; I25.10 Atherosclerotic heart disease of native coronary artery without angina pectoris; E03.9 Hypothyroidism, unspecified; E11.22 Type 2 diabetes mellitus with diabetic chronic kidney disease; N18.4 Chronic kidney disease, stage 4 (severe); I50.22 Chronic systolic (congestive) heart failure ==

== ENCOUNTER → 2017-05-05 | Outpatient (CLI) | payer OTHER ==
[~2017-05-05] MED LIST changes: +BUMETANIDE2 MG PO; +LEVOXYL25 MCG PO; +VANCOMYCIN500 MG/VIA IV; +XARELTO15 MG PO
== END ==
LOC: M.WC 02:00
DX: E11.621 Type 2 diabetes mellitus with foot ulcer (principal); L97.521 Non-pressure chronic ulcer of other part of left foot limited to breakdown of skin; L97.511 Non-pressure chronic ulcer of other part of right foot limited to breakdown of skin; E11.42 Type 2 diabetes mellitus with diabetic polyneuropathy; E11.22 Type 2 diabetes mellitus with diabetic chronic kidney disease; N18.4 Chronic kidney disease, stage 4 (severe); I50.22 Chronic systolic (congestive) heart failure; I87.2 Venous insufficiency (chronic) (peripheral); L84 Corns and callosities; E03.8 Other specified hypothyroidism; Z68.27 Body mass index [BMI] 27.0-27.9, adult

== ENCOUNTER → 2017-05-19 | Outpatient (CLI) | payer OTHER | LOC: M.WC 00:50 | DX: E11.621 Type 2 diabetes mellitus with foot ulcer (principal); L97.511 Non-pressure chronic ulcer of other part of right foot limited to breakdown of skin; L97.521 Non-pressure chronic ulcer of other part of left foot limited to breakdown of skin; I87.2 Venous insufficiency (chronic) (peripheral); E11.42 Type 2 diabetes mellitus with diabetic polyneuropathy; I50.22 Chronic systolic (congestive) heart failure; E03.8 Other specified hypothyroidism; E11.22 Type 2 diabetes mellitus with diabetic chronic kidney disease; N18.4 Chronic kidney disease, stage 4 (severe); Z68.27 Body mass index [BMI] 27.0-27.9, adult ==

== ENCOUNTER → 2017-05-26 | Outpatient (CLI) | payer OTHER | LOC: M.WC 02:48 | DX: E11.621 Type 2 diabetes mellitus with foot ulcer (principal); L97.511 Non-pressure chronic ulcer of other part of right foot limited to breakdown of skin; L97.521 Non-pressure chronic ulcer of other part of left foot limited to breakdown of skin; E11.42 Type 2 diabetes mellitus with diabetic polyneuropathy; I87.2 Venous insufficiency (chronic) (peripheral); I25.10 Atherosclerotic heart disease of native coronary artery without angina pectoris; E03.8 Other specified hypothyroidism; I50.22 Chronic systolic (congestive) heart failure; E11.22 Type 2 diabetes mellitus with diabetic chronic kidney disease; N18.4 Chronic kidney disease, stage 4 (severe); Z68.27 Body mass index [BMI] 27.0-27.9, adult ==

== ENCOUNTER → 2017-06-02 | Outpatient (CLI) | payer OTHER | LOC: M.WC 03:04 | DX: E11.621 Type 2 diabetes mellitus with foot ulcer (principal); L97.511 Non-pressure chronic ulcer of other part of right foot limited to breakdown of skin; L97.521 Non-pressure chronic ulcer of other part of left foot limited to breakdown of skin; I87.2 Venous insufficiency (chronic) (peripheral); E11.42 Type 2 diabetes mellitus with diabetic polyneuropathy; I25.10 Atherosclerotic heart disease of native coronary artery without angina pectoris; I50.22 Chronic systolic (congestive) heart failure; E03.8 Other specified hypothyroidism; E11.22 Type 2 diabetes mellitus with diabetic chronic kidney disease; N18.4 Chronic kidney disease, stage 4 (severe); Z68.27 Body mass index [BMI] 27.0-27.9, adult ==

== ENCOUNTER → 2017-06-09 | Outpatient (CLI) | payer OTHER | LOC: M.WC 04:26 | DX: E11.621 Type 2 diabetes mellitus with foot ulcer (principal); L97.521 Non-pressure chronic ulcer of other part of left foot limited to breakdown of skin; L97.511 Non-pressure chronic ulcer of other part of right foot limited to breakdown of skin; E11.42 Type 2 diabetes mellitus with diabetic polyneuropathy; I87.2 Venous insufficiency (chronic) (peripheral); E11.22 Type 2 diabetes mellitus with diabetic chronic kidney disease; N18.4 Chronic kidney disease, stage 4 (severe); I50.22 Chronic systolic (congestive) heart failure; I25.10 Atherosclerotic heart disease of native coronary artery without angina pectoris; E03.8 Other specified hypothyroidism; Z68.27 Body mass index [BMI] 27.0-27.9, adult ==

== ENCOUNTER → 2017-06-16 | Outpatient (CLI) | payer OTHER | LOC: M.WC 02:50 | DX: E11.621 Type 2 diabetes mellitus with foot ulcer (principal); L97.511 Non-pressure chronic ulcer of other part of right foot limited to breakdown of skin; L97.521 Non-pressure chronic ulcer of other part of left foot limited to breakdown of skin; E11.42 Type 2 diabetes mellitus with diabetic polyneuropathy; E11.22 Type 2 diabetes mellitus with diabetic chronic kidney disease; N18.4 Chronic kidney disease, stage 4 (severe); I50.22 Chronic systolic (congestive) heart failure; I87.2 Venous insufficiency (chronic) (peripheral); I25.10 Atherosclerotic heart disease of native coronary artery without angina pectoris; E03.8 Other specified hypothyroidism; E66.9 Obesity, unspecified; Z68.27 Body mass index [BMI] 27.0-27.9, adult ==

== ENCOUNTER → 2017-06-22 | Outpatient (CLI) | payer OTHER | LOC: M.WC 04:00 | DX: E11.621 Type 2 diabetes mellitus with foot ulcer (principal); L97.514 Non-pressure chronic ulcer of other part of right foot with necrosis of bone; L97.521 Non-pressure chronic ulcer of other part of left foot limited to breakdown of skin; E11.42 Type 2 diabetes mellitus with diabetic polyneuropathy; I87.2 Venous insufficiency (chronic) (peripheral); I25.10 Atherosclerotic heart disease of native coronary artery without angina pectoris; N18.4 Chronic kidney disease, stage 4 (severe); I50.22 Chronic systolic (congestive) heart failure; E03.8 Other specified hypothyroidism; Z68.27 Body mass index [BMI] 27.0-27.9, adult ==

== ENCOUNTER → 2017-06-23 | Outpatient (CLI) | payer OTHER ==
--- NOTE | 2017-06-24 14:38 | CON ---
[address] [address] CONSULTATION Name: ESTHER MIX Room: [facility]#: [id number] Admission: 06/23/17 Attend Phys: Jonathan Perez MD Discharge: Date of : 46 Report #: [id number] THIS REPORT FOR: //name// CC: Jonathan Tello DATE OF SERVICE: 06/23/2017 INFECTIOUS DISEASE CONSULTATION: ATTENDING PHYSICIAN: Dr. Bell. HISTORY OF PRESENT ILLNESS: The patient returns today in followup, having been evaluated over the course of the last 48 hours. There is concern about increasing inflammation associated with the first, second, third distal toes, right foot. She denies any systemic or localizing pain, signs or symptoms. She has been prescribed minocycline, which she just had started for culture with growth of MRSA. There is some concern about worsening infection with osteomyelitis. It is notable she has had exposed bone. Probable osteomyelitis in the setting of ischemic toes. At this point, the general approach is conservative. We will continue the minocycline for now. If it developed any sort of wet gangrene, likely would initiate parenteral therapy. Continue wound care as prescribed. I did discuss with the patient's spouse. We will follow expectantly. <ELECTRONICALLY SIGNED> By: Jonathan Perez MD 06/24/17 1438 1443 [id number] Perez MD /jonathan
== END ==
LOC: M.WC 01:49
DX: E11.621 Type 2 diabetes mellitus with foot ulcer (principal); L97.514 Non-pressure chronic ulcer of other part of right foot with necrosis of bone; L97.521 Non-pressure chronic ulcer of other part of left foot limited to breakdown of skin; I87.2 Venous insufficiency (chronic) (peripheral); E11.42 Type 2 diabetes mellitus with diabetic polyneuropathy; E11.22 Type 2 diabetes mellitus with diabetic chronic kidney disease; E03.9 Hypothyroidism, unspecified; N18.4 Chronic kidney disease, stage 4 (severe); I50.22 Chronic systolic (congestive) heart failure; Z68.27 Body mass index [BMI] 27.0-27.9, adult

== ENCOUNTER → 2017-07-09 | Outpatient (CLI) | payer OTHER ==
--- NOTE | 2017-07-12 07:40 | CON ---
[address] [address] CONSULTATION Name: MARIA DEL ROSARIOESTHER Zhou Room: [facility].#: [id number] Admission: 07/09/17 Attend Phys: Juan Pablo Courtney, Discharge: Date of : 46 Report #: [id number] THIS REPORT FOR: //name// CC: Katlyn Courtney DATE OF SERVICE: 07/09/2017 INFECTIOUS DISEASE CONSULTATION FOLLOWUP ATTENDING PHYSICIAN: Dr. Courtney. REASON FOR EVALUATION: Followup right foot multiple toes dry gangrene. HISTORY OF PRESENT ILLNESS: Chart reviewed, patient examined. The patient returns for followup of ongoing care for her right foot, distal multiple toes have some degree of necrosis, which involve the second, third and fourth. She actually has been off the antibiotics for about 8-9 days due to adverse drug effects from the minocycline with intractable nausea, emesis and diarrhea as well as abdominal pain. This is resolved. She has not had any recent fevers. As per her history, she does not have pain, but that is not atypical given her situation. PHYSICAL EXAMINATION: The foot appears to be stable. There are lion in the distal aspects of the second, third and fourth toes. It is dry. There is only mild degree of inflammation at this point. There is no drainage. ASSESSMENT AND PLAN: Distal right lower extremity gangrene, has gone through the demarcation process. At this point, I do not think there is a role for the antibiotics. We will not restart those and will be available as needed. <ELECTRONICALLY SIGNED> By: Jonathan Perez MD 07/12/17 0740 1034 [id number] Perez MD /nt
== END ==
LOC: M.WC 03:49
DX: E11.621 Type 2 diabetes mellitus with foot ulcer (principal); L97.514 Non-pressure chronic ulcer of other part of right foot with necrosis of bone; L97.521 Non-pressure chronic ulcer of other part of left foot limited to breakdown of skin; E11.42 Type 2 diabetes mellitus with diabetic polyneuropathy; I87.2 Venous insufficiency (chronic) (peripheral); E03.8 Other specified hypothyroidism; E11.22 Type 2 diabetes mellitus with diabetic chronic kidney disease; N18.4 Chronic kidney disease, stage 4 (severe); I50.22 Chronic systolic (congestive) heart failure; Z68.27 Body mass index [BMI] 27.0-27.9, adult

== ENCOUNTER → 2017-07-14 | Outpatient (CLI) | payer OTHER | LOC: M.WC 04:11 | DX: E11.621 Type 2 diabetes mellitus with foot ulcer (principal); L97.514 Non-pressure chronic ulcer of other part of right foot with necrosis of bone; L97.521 Non-pressure chronic ulcer of other part of left foot limited to breakdown of skin; E11.42 Type 2 diabetes mellitus with diabetic polyneuropathy; E11.22 Type 2 diabetes mellitus with diabetic chronic kidney disease; N18.4 Chronic kidney disease, stage 4 (severe); I50.22 Chronic systolic (congestive) heart failure; I87.2 Venous insufficiency (chronic) (peripheral); I25.10 Atherosclerotic heart disease of native coronary artery without angina pectoris; E03.8 Other specified hypothyroidism; Z68.27 Body mass index [BMI] 27.0-27.9, adult ==

== ENCOUNTER → 2017-07-21 | Outpatient (CLI) | payer OTHER | LOC: M.WC 03:33 | DX: E11.621 Type 2 diabetes mellitus with foot ulcer (principal); L97.514 Non-pressure chronic ulcer of other part of right foot with necrosis of bone; L97.521 Non-pressure chronic ulcer of other part of left foot limited to breakdown of skin; E11.42 Type 2 diabetes mellitus with diabetic polyneuropathy; I50.22 Chronic systolic (congestive) heart failure; N18.4 Chronic kidney disease, stage 4 (severe); I87.2 Venous insufficiency (chronic) (peripheral); E03.8 Other specified hypothyroidism; E66.9 Obesity, unspecified; I25.10 Atherosclerotic heart disease of native coronary artery without angina pectoris; Z68.27 Body mass index [BMI] 27.0-27.9, adult ==

== ENCOUNTER → 2017-08-11 | Outpatient (CLI) | payer OTHER | LOC: M.WC 08-04 04:04 → M.RAD 05:07 → M.WC 05:07 | DX: E11.621 Type 2 diabetes mellitus with foot ulcer (principal); L97.521 Non-pressure chronic ulcer of other part of left foot limited to breakdown of skin; L97.514 Non-pressure chronic ulcer of other part of right foot with necrosis of bone; E11.40 Type 2 diabetes mellitus with diabetic neuropathy, unspecified; E11.42 Type 2 diabetes mellitus with diabetic polyneuropathy; I87.2 Venous insufficiency (chronic) (peripheral); E03.9 Hypothyroidism, unspecified; N18.4 Chronic kidney disease, stage 4 (severe); I50.22 Chronic systolic (congestive) heart failure; Z79.811 Long term (current) use of aromatase inhibitors ==

== ENCOUNTER → 2017-09-27 | Outpatient (CLI) | payer OTHER | LOC: M.WC 08:00 | DX: E11.621 Type 2 diabetes mellitus with foot ulcer (principal); L97.521 Non-pressure chronic ulcer of other part of left foot limited to breakdown of skin; E11.42 Type 2 diabetes mellitus with diabetic polyneuropathy; I87.2 Venous insufficiency (chronic) (peripheral); E11.22 Type 2 diabetes mellitus with diabetic chronic kidney disease; N18.4 Chronic kidney disease, stage 4 (severe); E03.8 Other specified hypothyroidism; I25.10 Atherosclerotic heart disease of native coronary artery without angina pectoris ==

== ENCOUNTER → 2017-11-12 | Outpatient (CLI) | payer OTHER | LOC: M.WC 04:58 | DX: E11.621 Type 2 diabetes mellitus with foot ulcer (principal); L97.528 Non-pressure chronic ulcer of other part of left foot with other specified severity; L97.514 Non-pressure chronic ulcer of other part of right foot with necrosis of bone; E11.42 Type 2 diabetes mellitus with diabetic polyneuropathy; E11.22 Type 2 diabetes mellitus with diabetic chronic kidney disease; N18.4 Chronic kidney disease, stage 4 (severe); E03.8 Other specified hypothyroidism; E66.9 Obesity, unspecified; I87.2 Venous insufficiency (chronic) (peripheral); I50.22 Chronic systolic (congestive) heart failure; I25.10 Atherosclerotic heart disease of native coronary artery without angina pectoris; J44.9 Chronic obstructive pulmonary disease, unspecified; F41.9 Anxiety disorder, unspecified; F32.9 Major depressive disorder, single episode, unspecified; Z68.27 Body mass index [BMI] 27.0-27.9, adult ==

== ENCOUNTER → 2017-12-29 | Outpatient (CLI) | payer OTHER ==
--- NOTE | 2017-12-29 15:33 | 2DMMODE ---
[place] [address] 2 D/M-MODE ECHOCARDIOGRAM Name: ESTHER MIX Room: [facility]#: [id number] Admission: 12/29/17 Attend Phys: Phillip Novoa, Discharge: Date of : 46 Date of Service: 12/29/17 1532 Report #: [id number] THIS REPORT FOR: //name// APPROVED REPORT Study performed: 12/29/2017 08:58:59 EXAM: Comprehensive 2D, Doppler, and color-flow Echocardiogram Patient Location: Out-Patient Status: routine BSA: 2.07 HR: 78 bpm BP: 119/83 mmHg Other Information Study Quality: Fair Indications Congestive Heart Failure 2D Dimensions IVSd: 13.45 (7-11mm) LVOT Diam: 20.20 (18-24mm) LVDd: 52.27 mm PWd: 8.80 (7-11mm) Ascending Ao: 29.96 (22-36mm) LVDs: 39.24 (25-40mm) Aortic Root: 34.47 mm Volumes Left Atrial Volume (Systole) LA ESV Index: 16.80 mL/m2 Aortic Valve AoV Peak Seamus.: 1.13 m/s AO Peak Gr.: 5.11 mmHg LVOT Max P.06 mmHg AO Mean Gr.: 2.55 mmHg LVOT Mean P.00 mmHg LVOT Max V: 0.72 m/s AO V2 VTI: 19.50 cm LVOT Mean V: 0.46 m/s CODY (VTI): 2.41 cm2 LVOT V1 VTI: 14.68 cm Mitral Valve MV Decel. Time: 101.11 ms MV PHT: 29.32 ms MVA (PHT): 7.50 cm2 [place] [address] 2 D/M-MODE ECHOCARDIOGRAM Name: ESTHER MIX Room: [facility]#: [id number] Admission: 12/29/17 Attend Phys: Phillip Novoa, Discharge: Date of : 46 Date of Service: 12/29/17 1532 Report #: [id number] TDI Medial E' Seamus.: 0.04 m/s Lateral E' Seamus.: 0.06 m/s Pulmonary Valve PV Peak Seamus.: 0.88 m/s PV Peak Gr.: 3.08 mmHg Tricuspid Valve RAP Estimate: 5.00 mmHg TR Peak Gr.: 21.80 mmHg RVSP: 26.80 mmHg PA Pressure: 26.80 mmHg Left Ventricle The left ventricle is normal size. There is global hypokinesis of the left ventricle. There is normal left ventricular wall thickness. Left ventricular systolic function is moderately decreased. The left ventricular diastolic function is normal. Right Ventricle The right ventricle is normal size. The right ventricular systolic function is normal. Device lead is present in the right ventricle. Atria The left atrium size is normal. Pacemaker lead is present in the right atrium. Aortic Valve The aortic valve is normal in structure. No aortic regurgitation is present. There is no aortic valvular stenosis. Mitral Valve The mitral valve is normal in structure. There is no mitral valve regurgitation noted. No evidence of mitral valve stenosis. Tricuspid Valve The tricuspid valve is normal in structure. Mild tricuspid regurgitation. No pulmonary hypertension. Pulmonic Valve The pulmonary valve is normal in structure. There is no pulmonic valvular regurgitation. Great Vessels The aortic root is normal in size. IVC is normal in size and collapses >50% [place] [address] 2 D/M-MODE ECHOCARDIOGRAM Name: MARIA DEL ROSARIOESTHER Room: [facility]#: [id number] Admission: 12/29/17 Attend Phys: Phillip Novoa, Discharge: Date of : 46 Date of Service: 12/29/17 1532 Report #: [id number] Pericardium There is no pericardial effusion. <Conclusion> Left ventricular systolic function is moderately decreased. There is global hypokinesis of the left ventricle. <ELECTRONICALLY SIGNED> By: Chilo Norris MD, FACC 12/29/17 [phone] Chilo Norris MD, FAC /INF
== END ==
LOC: M.CRD 08:37
DX: I50.9 Heart failure, unspecified (principal); I42.8 Other cardiomyopathies

== ENCOUNTER → 2018-08-12 | Outpatient (CLI) | payer OTHER ==
[~2018-08-12] MED LIST changes: +ATIVAN0.5 MG PO; +BENTYL 10 MG CA10 M1 PO; +FA-80.8 MG PO; +HUMALOG100 UNIT/1 SUBQ; +IPRAT-ALBUT 0.5-3 ML INH; +LASIX 20 MG TAB20 MG PO; +NEPHRO-VITE TA0.8 MG PO; +NITROFURANTOIN100 MG PO; +VITAMIN D2000 UNIT PO
== END ==
LOC: M.WC 08:45
DX: E11.621 Type 2 diabetes mellitus with foot ulcer (principal); L97.514 Non-pressure chronic ulcer of other part of right foot with necrosis of bone; E11.42 Type 2 diabetes mellitus with diabetic polyneuropathy; E11.22 Type 2 diabetes mellitus with diabetic chronic kidney disease; N18.4 Chronic kidney disease, stage 4 (severe); I50.22 Chronic systolic (congestive) heart failure; I87.2 Venous insufficiency (chronic) (peripheral); I25.10 Atherosclerotic heart disease of native coronary artery without angina pectoris; E03.8 Other specified hypothyroidism; L84 Corns and callosities; F41.9 Anxiety disorder, unspecified; F32.9 Major depressive disorder, single episode, unspecified

== ENCOUNTER → 2018-08-17 | Outpatient (CLI) | payer OTHER | LOC: M.WC 04:59 | DX: E11.621 Type 2 diabetes mellitus with foot ulcer (principal); L97.514 Non-pressure chronic ulcer of other part of right foot with necrosis of bone; E11.42 Type 2 diabetes mellitus with diabetic polyneuropathy; I25.10 Atherosclerotic heart disease of native coronary artery without angina pectoris; I50.22 Chronic systolic (congestive) heart failure; I87.2 Venous insufficiency (chronic) (peripheral); E03.8 Other specified hypothyroidism; N18.4 Chronic kidney disease, stage 4 (severe); F41.9 Anxiety disorder, unspecified; F32.9 Major depressive disorder, single episode, unspecified ==

== ENCOUNTER → 2018-08-23 | Outpatient (CLI) | payer OTHER | LOC: M.ULTRA 08-19 13:00 | DX: S81.801A Unspecified open wound, right lower leg, initial encounter (principal); I73.9 Peripheral vascular disease, unspecified; X58.XXXA Exposure to other specified factors, initial encounter; Y93.89 Activity, other specified; Y92.89 Other specified places as the place of occurrence of the external cause; Y99.8 Other external cause status ==

== ENCOUNTER → 2018-08-24 | Outpatient (CLI) | payer OTHER ==
--- NOTE | 2018-08-26 13:08 | PATH ---
[address] [address] PATHOLOGY RPT PROCEDURE Name: BRANDY MIX Room: [facility] Navarro#: [id number] Admission: 08/24/18 Date of : 46 Discharge: Report #: [id number] Path Case #: [id number] [facility] Accession Number: [id number] . 01 Material submitted: . PART A: toe - THIRD TOE. Modifiers: third PART B: toe - 4TH TOE. Modifiers: fourth . 01 Clinician provided ICD-10: E11.621 . 01 Clinical history: . None provided . 02 Diagnosis: A. Third toe biopsy: - Benign cancellous bone with osteomyelitis. . B. Fourth toe biopsy: - Benign cartilage and cancellous bone with osteomyelitis. (GABRIELA/db; 08/26/2018) LBQ/08/26/2018 . 02 Electronically signed: . Matt Ring MD, Pathologist NPI- [id number] . 01 Gross description: . A. The specimen is received in formalin labeled "Brandy Mix, 3rd toe". The laterality is designated on the requisition as "right". Received is a fragment of granular, oreilly-brown bone with scant attached pale oreilly soft tissue measuring 0.8 x 0.6 x 0.4 cm in greatest dimensions. The specimen is inked black, bisected and submitted entirely in cassette A1, following decalcification. . B. The specimen is received in formalin labeled "Monica, Brandy, 4th toe". The laterality is designated on the requisition as "right". Received is a fragment of smooth to granular, pale oreilly to oreilly-brown bone measuring 0.7 x 0.5 x 0.5 cm in greatest dimensions. The specimen is inked black, bisected and submitted entirely in cassette B1, following decalcification. (DAC; 08/25/2018) XDC/XDC . 02 Pathologist provided ICD-10: M86.8X7 . 02 [place] [address] PATHOLOGY RPT PROCEDURE Name: BRANDY MIX Room: [facility]#: [id number] Admission: 08/24/18 Date of : 46 Discharge: Report #: [id number] Path Case #: [id number] Specimen Comment: A courtesy copy of this report has been sent to Specimen Comment: [phone], . Specimen Comment: Report sent to / DR ZAVALA Performed at: [address], [place], [place] [id number] MD Juan Pablo Solis MD Phone: [phone] Performed at: 02 [facility] [address], [place], [place] [id number] MD Matt Ring MD Phone: [phone]
== END ==
LOC: M.WC 03:33
DX: E11.621 Type 2 diabetes mellitus with foot ulcer (principal); L97.514 Non-pressure chronic ulcer of other part of right foot with necrosis of bone; E11.42 Type 2 diabetes mellitus with diabetic polyneuropathy; E11.22 Type 2 diabetes mellitus with diabetic chronic kidney disease; N18.4 Chronic kidney disease, stage 4 (severe); E03.8 Other specified hypothyroidism; E66.9 Obesity, unspecified; I50.22 Chronic systolic (congestive) heart failure; I87.2 Venous insufficiency (chronic) (peripheral); I25.10 Atherosclerotic heart disease of native coronary artery without angina pectoris; J44.9 Chronic obstructive pulmonary disease, unspecified; F41.9 Anxiety disorder, unspecified; F32.9 Major depressive disorder, single episode, unspecified; Z68.27 Body mass index [BMI] 27.0-27.9, adult

== ENCOUNTER → 2018-08-29 | Outpatient (CLI) | payer OTHER ==
--- NOTE | 2018-08-31 12:16 | CON ---
[address] [address] CONSULTATION Name: ESTHER MIX Room: [facility] Navarro#: [id number] Admission: 08/29/18 Attend Phys: Stephanie Strong MD Discharge: Date of : 46 Report #: [id number] THIS REPORT FOR: //name// CC: Stephanie Tello DATE OF SERVICE: 08/29/2018 INFECTIOUS DISEASE CONSULTATION Referral within the wound care center. REASON FOR EVALUATION: Suspected osteomyelitis involving the one or more toes on the right foot. HISTORY OF PRESENT ILLNESS: Chart reviewed, patient examined. This is a 68-year-old woman with diabetes mellitus type 2 complicated by peripheral neuropathy, has known vasculopathy who sustained injury somewhat unclear, who developed bullous type lesions suggest of some burn or may be trauma to the distal aspect of the second through fifth toes. It is notable that she has had previous issues with lower extremity infection for the osteomyelitis. She was evaluated and undergo evaluation including a culture with growth of oxacillin-resistant Staph aureus from a bone isolated from the fourth digit, had been placed on topical therapy with gentamicin. She denies significant amount of pain. She has not had recent subjective fevers. She has only fair appetite. Denies any significant pulmonary or gastrointestinal related complaints. ALLERGIES: NUMEROUS INCLUDING ANTIBIOTICS, PENICILLIN, SULFA, CIPRO, CEPHALOSPORINS, ALL OF WHICH DESCRIBED THROAT SWELLING, ALSO MORPHINE, OXYCONTIN, CODEINE. MEDICATIONS: Include carvedilol, acetaminophen, lorazepam, dicyclomine, ipratropium and albuterol inhaler, Xarelto, folic acid, hydrocortisone, insulin, furosemide, fluticasone, bupropion, levothyroxine, cholecalciferol, topical gentamicin. PAST MEDICAL HISTORY: Includes diabetes mellitus type 2 with significant sequelae including peripheral neuropathy, has known vasculopathy, has cardiomyopathy with history of congestive heart failure, chronic venous insufficiency with dermatitis, severe renal disease. SOCIAL AND FAMILY HISTORY: Available in the chart. REVIEW OF SYSTEMS: Otherwise, unremarkable 10-point review of systems with the exception of the noted above in the [place] [address] CONSULTATION Name: ESTHER MIX Room: [facility]#: [id number] Admission: 08/29/18 Attend Phys: Stephanie Strong MD Discharge: Date of : 46 Report #: [id number] PHYSICAL EXAMINATION: GENERAL: Appears chronically ill, undernourished. She is pleasant and cooperative. She is generally lucid, appears undernourished. VITAL SIGNS: Stable. HEENT: Unremarkable. LUNGS: Breathing is nonlabored. ASSESSMENT: Right foot has some hammertoes along the distal dorsal aspect ulcerative lesions, moderately inflamed at this point. On examination, on palpation there is no exposed bone, has distal pulses of the dorsalis pedis less so over the posterior tibial. Osteomyelitis involving at least one digit culture proven methicillin-resistant Staphylococcus aureus. Due to multiple drug allergies, attempted to start linezolid, called back stating there was at least on one list she was allergic to this and which she was switched to minocycline, rifampin. There is concern about drug-drug interactions with rifampin. She currently will be on systemic antibiotics with minocycline and she is following with Dr. Brock vascular surgeon who will address wound care and any vascular issues. She was encouraged to optimize her nutritional status, continue wound care as prescribed. Ultimately, may need additional surgery up to including toe amputations (bilateral). We will follow up with her next week. <ELECTRONICALLY SIGNED> By: Jonathan Perez MD 08/31/18 1216 1023 [id number] Perez MD /nt
== END ==
LOC: M.WC 04:32
DX: E11.621 Type 2 diabetes mellitus with foot ulcer (principal); L97.514 Non-pressure chronic ulcer of other part of right foot with necrosis of bone; E11.42 Type 2 diabetes mellitus with diabetic polyneuropathy; E11.22 Type 2 diabetes mellitus with diabetic chronic kidney disease; N18.4 Chronic kidney disease, stage 4 (severe); E03.8 Other specified hypothyroidism; I87.2 Venous insufficiency (chronic) (peripheral); I50.22 Chronic systolic (congestive) heart failure; I25.10 Atherosclerotic heart disease of native coronary artery without angina pectoris

== ENCOUNTER → 2018-09-07 | Outpatient (CLI) | payer OTHER | LOC: M.WC 05:22 | DX: E11.621 Type 2 diabetes mellitus with foot ulcer (principal); L97.514 Non-pressure chronic ulcer of other part of right foot with necrosis of bone; E11.42 Type 2 diabetes mellitus with diabetic polyneuropathy; E11.22 Type 2 diabetes mellitus with diabetic chronic kidney disease; N18.4 Chronic kidney disease, stage 4 (severe); E03.8 Other specified hypothyroidism; E66.9 Obesity, unspecified; I50.22 Chronic systolic (congestive) heart failure; I87.2 Venous insufficiency (chronic) (peripheral); I25.10 Atherosclerotic heart disease of native coronary artery without angina pectoris; J44.9 Chronic obstructive pulmonary disease, unspecified; F41.9 Anxiety disorder, unspecified; F32.9 Major depressive disorder, single episode, unspecified; Z68.27 Body mass index [BMI] 27.0-27.9, adult ==

== ENCOUNTER 2018-09-12 13:37 | Inpatient (IN) | payer OTHER ==
[~2018-09-12] VITALS: Ht 180.3 cm; Wt 88.0 kg
[2018-09-12 13:47] VITALS: BP 153/78
[2018-09-12 14:50] LABS: ABSOLUTE BASOPHILS 0.1 thou/uL (0.0-0.2); ABSOLUTE EOSINOPHILS 0.3 thou/uL (0.0-0.7); ABSOLUTE LYMPHOCYTES 3.4 thou/uL (0.8-5.3); ABSOLUTE MONOCYTES 0.7 thou/uL (0.0-1.2); ABSOLUTE NEUTROPHILS 4.7 thou/uL (1.6-8.1); BASOPHILS 0.9 %; EOSINOPHILS 3.2 %; HEMATOCRIT 34.3 % (37.0-47.0); HEMOGLOBIN 11.2 gm/dL (12.0-15.0); MCH 27.3 pg (26.0-34.0); MCHC 32.6 g/dL (28.0-37.0); MCV 83.6 fL (80.0-100.0); MONOCYTES 7.7 %; MPV 10.2 fl. (7.2-11.1); NUCLEATED RBCS 0 /100WBC; PLATELET COUNT* 199 thou/uL (150-400); POLYS 51.2 %; RDW-CV 16.3 % (10.5-14.5); WBC 9.2 thou/uL (4.0-11.0)
[2018-09-12 15:01] LABS: CALCIUM 8.6 mg/dL (8.5-10.1); CREATININE 1.2 mg/dL (0.6-1.3); POTASSIUM 3.6 mmol/L (3.5-5.1)
[2018-09-12 15:05] LABS: ALBUMIN 2.5 g/dL (3.4-5.0); MAGNESIUM 2.1 mg/dL (1.8-2.4); TOTAL BILIRUBIN 0.3 mg/dL (<0.1-1.0); TOTAL PROTEIN 6.1 g/dL (6.4-8.2)
[2018-09-12 17:21] LABS: URINE BILIRUBIN NEGATIVE (Negative); URINE BLOOD NEGATIVE (Negative); URINE CLARITY CLEAR; URINE COLOR YELLOW; URINE GLUCOSE-RANDOM NEGATIVE (Negative); URINE KETONES NEGATIVE (Negative); URINE LEUKOCYTES-REFLEX 1+ (Negative); URINE NITRITE-REFLEX NEGATIVE (Negative); URINE PROTEIN NEGATIVE (Negative); URINE UROBILINOGEN 0.2 E.U./dl (0.2-1.0)
--- NOTE | 2018-09-12 17:23 | NUR ---
LEFT INTERNAL JUGULAR VESSEL ACCESSED FOR TRIPLE LUMEN J.A.C.C. STYLET PASSED INTO NEEDLE WITH NO RESISTANCE MET. MICROINTRODUCER PASSED OVER STYLET WITH MINIMAL DERMATOTOMY REQUIRED. STYLET AND INNER CANNULA REMOVED AND TRIPLE LUMEN J.A.C.C. INSERTED INTO DILATOR WITH MODERATE RESISTNACE MET AT 10CM NIRMAL. LINE RETRACTED AND SLOWLY ADVANCED WITH MODERATE RESISTANCE MET. SALINE FLUSH CONNECTED TO LUER LOCK CONNECTOR AND DISTAL LUMEN FLUSHED AND SLOWLY ADVANCED WITH A CLOCKWISE TWIST. LINE ADVANCED TO THE 18CM NIRMAL WITH MINIMAL RESISTANCE. LINE FLUSHED WITH EASE AND GOOD BRISK BLOOD RETURN FROM ALL THREE LUMEN APPRECIATED. STATLOCK APPLIED TO SUTURE WING AT THE 20 CM NIRMAL AND STERILE DRESSING APPLIED WITH BIOPATCH AT INSERTION SITE. POST PROCEDURE CHEST X-RAY SHOWS LINE COILS ONTO ITSELF AND TERMINATES APPROPRIATELY FOR USE PER DR. REVELES. DR. KITTY WHEAT PRESENT DURING STERILE PROCEDURE ABOVE. REPORT GIVEN TO NURSING STAFF AND LINE CLEARED FOR USE BY DR WHEAT AND DR. REVELES.
[2018-09-12 17:35] LABS: CASTS None Seen /LPF (None Seen); CRYSTALS None Seen /LPF (None Seen); SQUAMOUS 0-3 Few /LPF (0-3); URINE RBC 0-2 Rare /HPF (0-2); URINE WBC-REFLEX 6-15 Few /HPF (0-5)
[2018-09-12 18:14] VITALS: BP 153/78
[2018-09-12 18:56] VITALS: BP 160/79
--- NOTE | 2018-09-12 19:45 | NUR ---
PT SLEEPING QUIETLY, AROUSES EASILY WITH VERBAL STIMULI. L NECK IVF INFUSING PER PUMP, ABX INFUSING. DENIES PAIN OR PROBLEMS. FEET WITH GAUZE DRSG INTACT, SOME SEROUS DRAINAGE PRESENT TO DRGS FAM TOES. PT INFORMED OF TRANSFER TO DUE TO NEED FOR ISOLATION, VERBALIZES UNDERSTANDING AND AGREEABLE. VSS. REPORT CALLED TO [facility]. WILL TRANSPORT PER WHEELCHAIR WITH BELONGINGS. CALL LITE IN EASY REACH, DENIES NEEDS AT PRESENT.
[2018-09-12 19:46] VITALS: BP 130/76
[2018-09-12 21:17] VITALS: BP 150/90
[2018-09-13 06:02] LABS: HEMATOCRIT 30.3 % (37.0-47.0); HEMOGLOBIN 9.7 gm/dL (12.0-15.0); MCH 26.6 pg (26.0-34.0); MCV 83.3 fL (80.0-100.0); MPV 10.1 fl. (7.2-11.1); RBC 3.64 mil/uL (4.20-5.00); RDW-CV 16.2 % (10.5-14.5); WBC 6.6 thou/uL (4.0-11.0)
[2018-09-13 06:17] LABS: CALCIUM 7.8 mg/dL (8.5-10.1); MAGNESIUM 1.9 mg/dL (1.8-2.4); POTASSIUM 3.4 mmol/L (3.5-5.1)
--- NOTE | 2018-09-13 06:42 | NUR ---
PATIENT SLEPT MOST OF THE NIGHT. IV FLUIDS AND VANC WERE GIVEN ORDERED. DRESSINGS REMAIN INTACT TO BIALTERAL FEET. WILL CONTINUE TO MONITOR.
[2018-09-13 07:18] VITALS: BP 135/50
--- NOTE | 2018-09-13 12:55 | NUR ---
WOUND CARE: CONSULT FOR BLE WOUNDS PT ADMITTED WITH BLE CELLULITIS. SHE IS A CURRENT PATIENT. PODIETRY, VASCULAR AND ID CONSULTED. PER PTS NURSE PT WAS SEEN BY DR YOUSSEF THIS AM, DRESSINGS WERE CHANGED AT THAT TIME. PT TO SEE VASCULAR TODAY WELL. ABBY COOL DRESSINGS IN TACT WHEN THIS NURSE SAW THE PT. NOTHING DONE WITH THEM AT THIS TIME. PTS NURSE INSTRUCTED TO CALL WOUND CARE IF ANY NEW CONCERNS ARRISE TODAY. WILL CONTINUE TO FOLLOW.
--- NOTE | 2018-09-13 15:12 | NUR ---
VISITED WITH PT.AND HER . SHE SAID WAS RECENTLY DIAGNOSED WITH CANCER. HE GOES FOR APPTS./[place] SEVERAL TIMES/WEEK. SHE HAS WOUNDS TO FEET. SHE SAID SHE HAS HAD THEM FOR AT LEAST A YEAR. SHE SAID THEY ARE NOT REALLY PAINFUL. SHE HAS A WALKER,WC AND BATH CHAIR. SHE SAID SHE IS SUPPOSED TO BE OFF HER FEET. USES WC AT TIMES BUT SHE JUST CAN'T STAY OFF OFF OF FEET ALL THE TIME. HER DOESN'T FEEL LIKE DOING MUCH DUE TO HIS CANCER/TXS. SHE DOES NOT DRIVE BUT HER DOES. THEY HAVE 3 CHILDREN. THEY WILL DO THINGS FOR PT./ 'EVERY ONCE IN AWHILE.' THEY ALSO HAVE 11 GRANDCHILDREN. AND 5 GREAT GRANDCHILDREN. SHE PAYS HER GRANDAUGHTER TO MOP THE FLOOR EVERY SAT. BUT SHE DOESN'T MAKE IT EVERY SAT. SHE STILL BABYSITS HER GRT.GRANDCHILDREN. SHE TELLS HER GRANDCHILDREN SHE CAN'T BABYSIT BUT THEY STILL BRING THEM. SHE SAID WANTS TO AMPUTATE 3 TOES. SHE DOESN'T WANT HIM TO BUT IF THATS WHAT WILL HEAL HER WOUND, SHE WILL AGREE. CM WILL FOLLOW. HAS USED [facility] IN THE PAST AND [facility] FOR IVAB LAST YEAR.
[2018-09-13 16:25] VITALS: BP 147/70
--- NOTE | 2018-09-13 17:46 | NUR ---
ASSESSMENT COMPLETE. PT ALERT AND ORIENTED X4. PT HAD XRAY AND US OF BILAT FEET. DRESSING CHANGED WITH VASCULAR THIS AFTERNOON. PICTURES TAKEN THIS MORNING. DR YANG CONSULT WELL. CULTURES SENT. ACCU CHECK AC HS. VSS. PT IS UP STANDBY ASSIST. CENTRAL LINE FELL OUT PER PT SHE WOKE UP AND IT WAS OUT NEXT TO HER HEAD. PERIPHERAL PLACED IN LEFT UPPER ARM. IV VANC GIVEN SCHEDULED. TYLENOL GIVEN ONCE FOR HEADACHE. SEE ASSESSMENT AND VITALS FOR OTHER DETAILS. CALL LIGHT WITHIN REACH, WILL CONTINUE PLAN OF CARE
[2018-09-13 21:04] VITALS: BP 126/49
--- NOTE | 2018-09-14 06:15 | NUR ---
PATIENT SLEPT MOST OF THE NIGHT. IV REMAINS INTACT AND SALINE LOCKED. VANC WAS GIVEN ORDERED. PATIENT HAD NO COMPLAINTS OF PAIN. WILL CONTINUE TO MONITOR.
--- NOTE | 2018-09-14 16:14 | NUR ---
RE: HEART FAILURE MEDICATION EDUCATION I provided patient with a heart failure medication information handout. We discussed carvediolol and furosemide. All patients questions were answered. Pharmacy is available for any future questions. Thank you.
--- NOTE | 2018-09-14 18:33 | NUR ---
I ASSUMED CARE OF THE PATIENT AT 0700. SHE IS ALERT AND ORIENTED X4 AND IS UP AD MERCED. IS AT THE BEDSIDE. BED IS IN THE LOW LOCKED POSITION AND CALL LIGHT IS IN REACH. HOURLY ROUNDING IS COMPLETED AND PATIENT NEEDS ARE MET. PAIN IS MANAGED WITH PRN MEDS. PATIENT HAS AGREED TO AMPUTATION OF TOES ON 09/15/18 IF NEEDED. VANC TROUGH WAS HIGH AND VANC WAS HELD AT 1700. BLOOD SUGAR CHECKED AND INSULIN WAS ADMINISTERED. ISOLATION WAS MAINTAINED. VASCULAR UNDRESSED WOUND AND REDRESSED IT. WILL CONTINUE TO MONITOR.
[2018-09-14 20:00] VITALS: BP 140/60
--- NOTE | 2018-09-15 06:25 | NUR ---
PATIENT SLEPT MOST OF THE NIGHT. IV REMAINS SALINE LOCKED. PATIENT HAD NO COMPLAINTS OF PAIN. DRESSINGS TO BILATERAL FEET REMAIN IN PLACE. PATIENT HAS BEEN NPO SINCE MIDNIGHT FOR SURGERY TODAY. WILL CONTINUE TO MONITOR.
[2018-09-15 08:30] VITALS: BP 134/73
--- NOTE | 2018-09-15 12:10 | EKG ---
[place] [address] ELECTROCARDIOGRAM REPORT Name: ESTHER MIX Room: [address] ADM IN ..#: [id number] Admission: 09/12/18 Attend Phys: Tammi Martin MD Discharge: Date of : 46 Report #: [id number] THIS REPORT FOR: //name// [facility] Test Date: 2018-09-15 Test Time: 10:09:46 Pat Name: ESTHER MIX Department: Room: [address] Gender: F Research Associate Policy: : 1950 Requested By: Zach Cadena Order Number: [id number] MD: Aung Campoverde Measurements Intervals [place] Rate: 64 P: 55 [place]: 207 QRS: -13 QRSD: 101 T: 89 QT: 478 QTc: 494 Interpretive Statements Sinus rhythm Low voltage, precordial leads Borderline prolonged QT interval Compared to ECG 04/07/2017 11:02:15 T-wave abnormality no longer present Electronically Signed On 09-15-2018 12:10:18 CDT by Aung Campoverde [email or web address] <ELECTRONICALLY SIGNED> By: Aung Campoverde MD, [facility] 09/15/18 1210 1009 1009 Aung Campoverde MD, [facility] /EPI
[2018-09-15 15:45] VITALS: BP 146/64
--- NOTE | 2018-09-15 15:56 | NUR ---
WOUND NURSE: PATIENT WAS SEEN AND SPOKE WITH STAFF NURSE WHO REPORTS DRESSING WAS ALREADY CHANGED BY HER. PATIENT WAS SITTING ON THE EDGE OF THE BED WITH FEET DANGLING, AND SHE REPORTING THAT SHE PLANS ON WALKING AT LEAST TO THE BATHROOM. PATIENT WAS INSTRUCTED ON THE IMPORTANCE OF ELEVATION OF BLE MUCH POSSIBLE AND DISCOURAGED AMBULATION, USE OF BEDSIDE COMMODE INSTEAD. PATIENT IS NOT IN AGREEMENT WITH THIS RECOMMENDATION.
--- NOTE | 2018-09-15 16:37 | NUR ---
DRESSINGS TO PATIENT FAM FOOT WOUNDS CHANGED. PATIENT HAD MINIMAL CLEARS UNTIL NOON, OK'D BY PACU THEN NPO. IVF INFUSING PER ORDERS. PATIENT UP WITH SBA. PATIENT HAD A SELF CARE BATH THIS AM. REPORT CALLED TO [facility] TURCIOS ON TELE FOR TRANSFER OF PATIENT AFTER SURGERY TO ROOM 202. PATIENT BELONGINGS TAKEN TO ROOM.
[2018-09-15 18:04] LABS: HEMATOCRIT 30.5 % (37.0-47.0); HEMOGLOBIN 9.9 gm/dL (12.0-15.0)
[2018-09-15 18:10] VITALS: BP 159/67
--- NOTE | 2018-09-15 19:21 | NUR ---
RECEIVED REPORT FROM RENITA SHEFFIELD ON . PT ARRIEVED TO TELE FLOOR AROUND 1809, ASSUMED CARE. VSS. PT A&OX4, VERY DROWSY. MEDS PER EMAR. PT WITH POOR APPETITE, REFUSED DINNER. AT BEDSIDE. PT DENIES PAIN. THIS RN AGREES WITH ASSESSMENT AND CHARTING OF RENITA SHEFFIELD. PT CURRENTLY RESTING IN BED, CALL LIGHT IS WITHIN REACH. HOURLY ROUNDING PERFORMED. FALL PRECAUTIONS IN PLACE.
[2018-09-15 20:20] VITALS: BP 161/78
[2018-09-16] VITALS: BP 139/68
[2018-09-16 03:46] VITALS: BP 142/66
[2018-09-16 04:15] LABS: HEMATOCRIT 32.1 % (37.0-47.0); HEMOGLOBIN 10.4 gm/dL (12.0-15.0); MCH 27.3 pg (26.0-34.0); MCHC 32.5 g/dL (28.0-37.0); RBC 3.83 mil/uL (4.20-5.00); RDW-CV 16.4 % (10.5-14.5)
[2018-09-16 04:37] LABS: ALBUMIN 2.1 g/dL (3.4-5.0); CALCIUM 8.3 mg/dL (8.5-10.1); MAGNESIUM 1.8 mg/dL (1.8-2.4); POTASSIUM 3.6 mmol/L (3.5-5.1); TOTAL BILIRUBIN 0.5 mg/dL (<0.1-1.0); TOTAL PROTEIN 5.5 g/dL (6.4-8.2)
--- NOTE | 2018-09-16 05:19 | NUR ---
PT SLEPT MOST OF SHIFT. ASSESSMENT DOCUMENTED. MEDS GIVEN PER E-MAR IV PATENT, FLUIDS INFUSING. DRESSINGS TO BILAT LE REMAINED C/D/I. NO REPORTS OF PAIN THIS SHIFT. WILL CONTINUE WITH PLAN OF CARE.
[2018-09-16 08:45] VITALS: BP 107/38
[2018-09-16 13:01] VITALS: BP 118/53
--- NOTE | 2018-09-16 13:27 | NUR ---
SCRUBBER MACHINE TENDER SPOEK TO THE PATIENT TO DISCUSS DISCHARGE PLANNING NEED AND HH AND NPOSSIBLE IV ABT'S AT D/C. PATIENT INFORMS THAT SHE IS CURRENTLY ON-SERVICE WITH [facility], AND HAS HAD HOME IV ABT'S IN THE PAST AND WOULD BE OPEN TO DOING THEM AGAIN WITH [facility] IF NEEDED. D/C X RAY DEVELOPER CALLED AND SPOKE TO ALYSON WITH [facility] AND SHE CONFIRMS THAT THE PATIENT IS CURRENTLY ON-SERVICE. [facility] WILL NEED TO BE CALLED AND D/C ORDERS FAXED AT D/C. D/C X RAY DEVELOPER FAXED PATIENT'S FACESHEET, H&P, AND PROGRESS NOTE TO [facility]. D/C X RAY DEVELOPER CALLED [facility] TO INFORM OF THE REFERRAL FOR HOME IV ABT INFUSIONS AND FAXED PATIENT'S FACESHEET, H&P, AND MED LIST. PHYSICIAN ALSO WROTE AND ORDER FOR A KNEE SCOOTER FOR THE PATIENT. D/C X RAY DEVELOPER FAXED REFERRAL TO [facility], AND [facility], AND BOTH WERE UNABLE TO ASSIST WITH KNEE SCOOTER DUE TO INSURANCE AND [facility] NO LONGER SELLING KNEE SCOOTERS. D/C X RAY DEVELOPER FAXED DME REFERRAL TO [facility] AND AM AWAITING A RETURN CALL TO INFORM IF PATIENT'S INSURANCE WILL COVER THE COST OF THE KNEE SCOOTER OTHERWISE PATIENT MAY NEED TO PAY OOP FOR IT. CM WILL REMAIN AVAILABLE TO ASSIST AND FOLLOW NEEDED. [facility] PHONE: [phone] FAX: [phone] [facility] PHONE: [phone] FAX: [phone]
--- NOTE | 2018-09-16 13:33 | NUR ---
MARIA VICTORIA spoke with , Anticipate that Pt will need IVABX at dc, Dr recommending skilled, unsure if Pt will agree to skilled. DC operations planner to cost medicatation with [facility] and update [facility] of referral. DC operations planner to see if ins will cover a knee scooter.
[2018-09-16 16:00] VITALS: BP 112/52
--- NOTE | 2018-09-16 16:03 | NUR ---
PATIENT UP TO BSC, NWB ON THE RIGHT FOOT. PATIENT POSSIBLE WBAT TOMORROW AFTER DR. VILLEGAS ([facility]) CHANGED FAM LE DRESSINGS TOMORROW. PT ORDERED. IVF INFUSING AND SCHED ABX TO INFUSE ORDERED. DRESSINGS TO FAM LE'S REMAIN DRY AND INTACT, FEET ELEVATED. NO INSULIN GIVEN WITH BREAKFAST OR LUNCH PER SCALE. REFUSED ANY PAIN MEDICATION THIS SHIFT.
--- NOTE | 2018-09-16 18:21 | NUR ---
WOUND NURSE: PETER RAMOS, NURSE CARING FOR PATIENT, DR. VILLEGAS DOES NOT WANT DRESSING CHANGED TO FEET UNTIL TOMORROW. PATIENT NOT SEEN A RESULT.
[2018-09-16 20:00] VITALS: BP 141/59
[2018-09-17] VITALS: BP 140/60
--- NOTE | 2018-09-17 03:21 | NUR ---
PT DROWSEY AROUSES EASILY. ORIENTED X 4. UP TO BSC NWB. MED SURG STATUS. TYLENOL GIVEN FOR TEMP 100.3
[2018-09-17 04:00] VITALS: BP 103/68
[2018-09-17 05:06] LABS: HEMATOCRIT 29.6 % (37.0-47.0); HEMOGLOBIN 9.6 gm/dL (12.0-15.0); MCH 27.1 pg (26.0-34.0); MCHC 32.4 g/dL (28.0-37.0); MCV 83.5 fL (80.0-100.0); MPV 10.8 fl. (7.2-11.1); RBC 3.54 mil/uL (4.20-5.00); RDW-CV 16.3 % (10.5-14.5); WBC 8.1 thou/uL (4.0-11.0)
[2018-09-17 05:23] LABS: CREATININE 1.2 mg/dL (0.6-1.3); MAGNESIUM 1.8 mg/dL (1.8-2.4); POTASSIUM 3.6 mmol/L (3.5-5.1)
[2018-09-17 08:00] VITALS: BP 99/60
[2018-09-17 11:18] VITALS: BP 123/45
--- NOTE | 2018-09-17 16:05 | NUR ---
SHIFT NOTE - DR. VILLEGAS HERE THIS AM AND CHANGED FAM FEET DRESSINGS. SHE REMOVED RT FOOT DRAIN AT THAT TIME. DRESSINGS CHANGED. PT ABLE TO WORK WITH PHYSICAL THERAPY TODAY WITH SURGICAL SHOES PRESENT. TOLERATED WELL. WILL CONTINUE TO MONITOR.
[2018-09-17 20:00] VITALS: BP 140/55
[2018-09-18] VITALS: BP 132/52
--- NOTE | 2018-09-18 02:59 | NUR ---
PT ALERT ORIENTED. UP TO BSC WITH ONE PERSON STD BY ASSIST. MEDICAL SURGICAL STATUS. DENIES PAIN. ON RA VANC LEVEL BACK CRITICAL 24. DOSE ADJUSTED PER PHARMACY. DR NOWAK NOTIFIED.
[2018-09-18 08:00] VITALS: BP 130/60
[2018-09-18 12:00] VITALS: BP 151/58
--- NOTE | 2018-09-18 17:45 | NUR ---
SHIFT NOTE - SPOUSE AT BEDSIDE FOR MOST OF THIS SHIFT TODAY. UP WITH MINIMAL ASSIST TO BSC. FAM FEET DRESSING INTACT WITH SURGICAL SHOES PRESENT. WILL CONTINUE TO MONITOR.
[2018-09-18 20:00] VITALS: BP 128/47
--- NOTE | 2018-09-19 03:47 | NUR ---
ASSUMED PT CARE AT APPROX 1930. PT IS AWAKE AND ORIENTED X4. VSS ON ROOM AIR. PT DENIES PAIN/DISCOMFORT THTOUGH THIS SHIFT. WOUND DRESSING INTACT ON BOTH FEET. PT IS ABLE TO SLEEP MOST OF THE NIGHT. CALL LIGHT WITHIN REACH. HOURLY ROUNDING DONE FOR PT SAFETY.
[2018-09-19 04:58] LABS: CALCIUM 8.2 mg/dL (8.5-10.1); CREATININE 1.2 mg/dL (0.6-1.3)
[2018-09-19 04:59] LABS: ABSOLUTE EOSINOPHILS 0.2 thou/uL (0.0-0.7); ABSOLUTE LYMPHOCYTES 2.6 thou/uL (0.8-5.3); ABSOLUTE MONOCYTES 0.5 thou/uL (0.0-1.2); ABSOLUTE NEUTROPHILS 3.4 thou/uL (1.6-8.1); BASOPHILS 0.7 %; EOSINOPHILS 2.9 %; HEMATOCRIT 29.6 % (37.0-47.0); HEMOGLOBIN 9.9 gm/dL (12.0-15.0); LYMPHOCYTES 38.4 %; MCH 27.9 pg (26.0-34.0); MCHC 33.5 g/dL (28.0-37.0); MCV 83.4 fL (80.0-100.0); MONOCYTES 7.6 %; MPV 10.9 fl. (7.2-11.1); NUCLEATED RBCS 0 /100WBC; PLATELET COUNT* 218 thou/uL (150-400); POLYS 50.4 %; RBC 3.54 mil/uL (4.20-5.00); RDW-CV 16.3 % (10.5-14.5); WBC 6.8 thou/uL (4.0-11.0)
[2018-09-19 08:00] VITALS: BP 144/81
--- NOTE | 2018-09-19 09:29 | NUR ---
consulted to place picc for [facility] atb therapy. spoke with pt, risk park reviewed and education completed. chart and consent reviewed. dr. Catrina YOUSSEF IN ROOM CHANGING DRESSING TO BILATERAL FEET. RIGHT PACEMAKER/DEFIB NOTED. ALSO NOTED THAT PRIOR ATTEMPT AT PICC PLACMENT ON ADMISSSION UNSUCCESSFUL. ALSON NOTED IJ CENTRA LINE THAT WAS PLACED ON ADMISSION WAS COILED BACK ON ITSELF AND PT REMOVED IT HERSELF. LEFT UPPER ARM ASSESSED WITH ULTRASOUND. LEFT BASSILIC NOTED AND NOTED TO BE WIDLEY PATNET. 1 ATTEMPT AT LINE PLACEMNET UNSUCESSFUL. PICC TRIMMED TO 50CM AND ADVANCED TO 40CM. ABLE TO ADVANCE WIRE WITH OUT RESISTANCE BUT UNABLE TO ADVANCE PICC LINE PAST MID SVC. LINE APPEARS TO COIL BACK ON ITSELF PER SHERLOCK TIP SYSTEM. NO BLOOD RETURN BUT EASY FLUSH. PER POLICY, STATLOCK STERILE GAUZE AND TEGADERM APPLIED. DO NOT USE WRITTEN ON TEGADERM. AND END OF CAP TAPED. REPORT ADN INSTRUCTION NOT TO USE GIVEN TO PRIMARY RN. CALL PLACED TO IR AND SPOKE WITH TINA. PALACIOS CONSULT PLACE FOR PVER WIRE EXCHANGE OR TIP REPOSITION PLACED. PER OFFICE DR. DICKSON RESEARCH NEUROPSYCHOLOGIST. INFUSION CONTACT INFO LEFT FOR CONSULT. NUSING SPECIAL SHOPPER ALSO AWARE.
[2018-09-19 12:00] VITALS: BP 149/69
[2018-09-19 13:00] VITALS: BP 133/64; BP 138/64
--- NOTE | 2018-09-19 15:15 | NUR ---
ASSUMED PT CARE AT 0800, AOX4, UP SBA WITH WALKER. O2 SAT 90'S RA. PT FOR ACCU CHECK. PT WOUND C/D/I, PODIATRY ON BOARD. PT HAD PICC LINE INSERTED. AM ASSESSMENT CHARTED, MEDS GIVEN PER MAR. CALL LIGHT WITHIN REACH. WILL CONTINUE TO MONITOR.
--- NOTE | 2018-09-19 18:06 | PATH ---
[address] [address] PATHOLOGY RPT PROCEDURE Name: BRANDY MIX Room: [address] IN M.R.#: [id number] Admission: 09/12/18 Date of : 46 Discharge: Report #: [id number] Path Case #: [id number] [facility] Accession Number: [id number] . 01 Material submitted: . PART A: toe - RIGHT 2ND TOE. Modifiers: right, second PART B: toe - RIGHT 3RD TOE. Modifiers: right, third PART C: toe - RIGHT 4TH TOE. Modifiers: right, fourth . 01 Clinical history: . Osteomyelitis of right second, third, and fourth toes; blister/ulcer left medial IMPJ . 02 Diagnosis: A. Right second toe: - Benign toe with missing toenail and with nonspecific ulceration, acute and chronic inflammation of soft tissues and evidence of osteomyelitis and underlying phalangeal bone, with proximal disarticulation margin free of osteomyelitis. - Separate benign osteocartilaginous segment without osteomyelitis. . B. Right third toe: - Benign toe with missing toenail and with nonspecific ulceration and acute and chronic inflammation of underlying soft tissues and osteomyelitis of phalangeal bone, with proximal disarticulation margin free of osteomyelitis. - Separate benign osteocartilaginous segment without osteomyelitis. . C. Right fourth toe: - Benign toe with nonspecific ulceration, acute and chronic inflammation of underlying soft tissue and osteomyelitis of phalangeal bone, with proximal disarticulation margin free of osteomyelitis. - Separate benign osteocartilaginous segment without osteomyelitis. . (GABRIELA:mml; 09/19/2018) [facility]/09/19/2018 . 02 Electronically signed: . Matt Ring MD, Pathologist NPI- [id number] . 01 Gross description: . A. The specimen is received in formalin, labeled "Brandy Mix, right second toe". Received is an amputated digit measuring 4.1 x 3.1 x 2.2 cm in greatest dimensions. The bone margin is smooth and concave in appearance, consistent with disarticulation. The bone and soft tissue margins are inked black. The nail is absent. At the distal aspect of the specimen, there is a poorly circumscribed, irregular [place] [address] PATHOLOGY RPT PROCEDURE Name: BRANDY MIX Room: [address] IN [facility].#: [id number] Admission: 09/12/18 Date of : 46 Discharge: Report #: [id number] Path Case #: [id number] brown to pink-brown lesion measuring 3.1 x 1.8 cm, which is 1.0 cm from the skin margin. The full-thickness longitudinal cross-section is submitted from proximal to distal aspects in cassettes A1 and A2, following decalcification. . Also received within the specimen container is an additional segment of bone displaying one blunt, transected margin, and one smooth, convex margin measuring 1.7 x 1.4 x 0.9 cm in greatest dimensions. The transected margin is inked black. A full thickness cross-section is submitted in cassette A3, following decalcification. . B. The specimen is received in formalin, labeled "Brandy Lukenbill, right third toe". Received is an amputated digit measuring 4.1 x 2.9 x 1.9 cm in greatest dimensions. The bone margin is smooth and concave in appearance, consistent with disarticulation. The bone and soft tissue margins are inked blue. The nail is absent. There is a lesion which is poorly circumscribed, irregular in contour and pink-brown measuring 3.0 x 2.0 cm, which is 0.7 cm from the closest skin margin. A full-thickness longitudinal cross-section is submitted from proximal to distal aspects in cassettes B1 and B2, following decalcification. . Also received within the specimen container is an additional segment of bone displaying one blunt, transected margin, and one smooth, convex margin measuring 1.7 x 1.1 x 0.8 cm in greatest dimensions. The transected margin is inked blue. A full thickness cross-section is submitted in cassette B3, following decalcification. . C. The specimen is received in formalin, labeled "Brandy Lukenbill, right fourth toe". Received is an amputated digit measuring 3.2 x 2.1 x 1.7 cm in greatest dimensions. The bone margin is smooth and concave in appearance, consistent with disarticulation. The bone and soft tissue margins are inked yellow. The epidermal surface displays a poorly circumscribed, irregular in contour and red-brown lesion measuring 2.3 x 1.7 cm, which is 1.1 cm from the closest skin margin. A full-thickness longitudinal cross-section is submitted from proximal to distal aspects in cassettes C1 and C2, following decalcification. . Also received within the specimen container is an additional segment of bone displaying one blunt, transected margin, and one smooth, convex margin measuring 1.6 x 1.2 x 0.7 cm in greatest dimensions. The transected margin is inked yellow. A full thickness cross-section is submitted in cassette C3, following decalcification. (CAA; 09/16/2018) QAC/QAC . 02 Pathologist provided ICD-10: L97.519, L98.8, M86.171 . 02 [place] [address] PATHOLOGY RPT PROCEDURE Name: BRANDY MIX Room: [address] IN [facility]#: [id number] Admission: 09/12/18 Date of : 46 Discharge: Report #: [id number] Path Case #: [id number] Specimen Comment: A courtesy copy of this report has been sent to Specimen Comment: [phone], , . Specimen Comment: Report sent to , and Performed at: [address], [place], [place] [id number] MD Juan Pablo Solis MD Phone: [phone] Performed at: 02 [facility] [address], [place], [place] [id number] MD Matt Ring MD Phone: [phone]
[2018-09-19 20:00] VITALS: BP 148/66
--- NOTE | 2018-09-20 03:32 | NUR ---
ASSUMED PT CARE APPROX 1930. PT IS AWAKE AND ORIENTED X4. VSS ON ROOM AIR. ASSESSMENT DONE AND CHARTED. PT DENIES PAIN/DISCOMFORT. PICC INTACT AND PATENT. WOUND DRESSING INTACT AND DRY. CALL LIGHT WITHIN REACH. HOURLY ROUNDING DONE FOR PT SAFETY.
[2018-09-20 05:15] VITALS: BP 136/57
[2018-09-20 05:16] LABS: ABSOLUTE EOSINOPHILS 0.2 thou/uL (0.0-0.7); ABSOLUTE LYMPHOCYTES 2.6 thou/uL (0.8-5.3); ABSOLUTE MONOCYTES 0.5 thou/uL (0.0-1.2); BASOPHILS 0.6 %; EOSINOPHILS 3.3 %; HEMATOCRIT 28.1 % (37.0-47.0); HEMOGLOBIN 9.3 gm/dL (12.0-15.0); LYMPHOCYTES 40.9 %; MCH 27.7 pg (26.0-34.0); MCHC 33.1 g/dL (28.0-37.0); MCV 83.6 fL (80.0-100.0); MONOCYTES 8.1 %; MPV 10.2 fl. (7.2-11.1); NUCLEATED RBCS 0 /100WBC; PLATELET COUNT* 216 thou/uL (150-400); POLYS 47.1 %; RBC 3.36 mil/uL (4.20-5.00); WBC 6.4 thou/uL (4.0-11.0)
[2018-09-20 05:34] LABS: CALCIUM 8.3 mg/dL (8.5-10.1)
[2018-09-20 05:40] LABS: POTASSIUM 2.9 mmol/L (3.5-5.1)
[2018-09-20 08:09] VITALS: BP 149/68
--- NOTE | 2018-09-20 10:29 | NUR ---
CM discussed disposition, Pt continues to plan to dc to home once medically stable. Pt confirmed that she is able to cover the cost of the IVABX and states that her has been trained on how to administer them. [facility]iva to be updated to dispense IVABX at dc. Resumption orders to be faxed to [facility].
[2018-09-20 14:29] VITALS: BP 148/63
--- NOTE | 2018-09-20 16:51 | NUR ---
ASSUMED CARE OF PT AROUND 0730 THIS AM. REFER TO ASSESSMENT. PT'S POTASSIUM REPLACED THIS SHIFT. REPLACED VIA IV ROUTE D/T PT REFUSING OUR ORAL POTASSIUM. VSS. ANTICIPATE DC HOME TOMORROW. NO OTHER CONCERNS AT THIS TIME. CLWR. WCTM.
[2018-09-20 20:00] VITALS: BP 132/57
[2018-09-21] VITALS: BP 139/58
[2018-09-21 04:00] VITALS: BP 105/72
--- NOTE | 2018-09-21 04:55 | NUR ---
ASSUMED PT CARE APPROX 1930. PT IS AWAKE AND ORIENTED X4. VSS ON ROOM AIR. PT DENIES PAIN/DISCOMFORT. PT IS ABLE TO SLEEP MOST OF THE NIGHT. CALL LIGHT WITHIN REACH. HOURLY ROUNDING DONE FOR PT SAFETY. [facility]
[2018-09-21 05:32] LABS: ABSOLUTE BASOPHILS 0.1 thou/uL (0.0-0.2); ABSOLUTE EOSINOPHILS 0.2 thou/uL (0.0-0.7); ABSOLUTE LYMPHOCYTES 2.9 thou/uL (0.8-5.3); ABSOLUTE MONOCYTES 0.5 thou/uL (0.0-1.2); ABSOLUTE NEUTROPHILS 3.9 thou/uL (1.6-8.1); BASOPHILS 0.8 %; EOSINOPHILS 2.8 %; HEMATOCRIT 29.6 % (37.0-47.0); HEMOGLOBIN 9.7 gm/dL (12.0-15.0); LYMPHOCYTES 38.4 %; MCH 27.7 pg (26.0-34.0); MCHC 32.9 g/dL (28.0-37.0); MCV 84.1 fL (80.0-100.0); MPV 10.9 fl. (7.2-11.1); NUCLEATED RBCS 0 /100WBC; PLATELET COUNT* 236 thou/uL (150-400); RBC 3.52 mil/uL (4.20-5.00); RDW-CV 16.3 % (10.5-14.5); WBC 7.6 thou/uL (4.0-11.0)
[2018-09-21 05:54] LABS: CALCIUM 8.2 mg/dL (8.5-10.1); MAGNESIUM 2.1 mg/dL (1.8-2.4); POTASSIUM 3.1 mmol/L (3.5-5.1)
--- NOTE | 2018-09-21 07:13 | OP ---
[address] [address] OPERATIVE REPORT Name: ESTHER MIX Room: [address] IN .R.#: [id number] Admission: 09/12/18 Attend Phys: Tammi Martin MD Discharge: Date of : 46 Report #: [id number] THIS REPORT FOR: //name// CC: Tammi Tello DATE OF SERVICE: 09/19/2018 PREOPERATIVE DIAGNOSIS: Malpositioned PICC line. POSTOPERATIVE DIAGNOSIS: Malpositioned PICC line. PROCEDURES: 1. Retrieval of foreign object, central venous structures with snare. 2. Placement of PICC line from left basilic vein approach. SURGEON: Daniel Turk MD OUTSOLE BEVELER: Dr. Lovell. COMPLICATIONS: None. ESTIMATED BLOOD LOSS: Minimal. ANESTHESIA: Local. INDICATIONS FOR PROCEDURE: The patient is a very pleasant 68-year-old white female who had a PICC line placed at the bedside. Unfortunately, PICC line coiled in the left innominate/subclavian vein. They were unable to straighten out. I was asked for assistance and reposition of the catheter. Informed consent was obtained from the patient with risks including, but not limited to, bleeding, infection, need for further surgery, pain, , heart attack, stroke, pneumothorax, pulmonary embolism. The patient understood these risks and was agreeable to proceed. DESCRIPTION OF PROCEDURE: The patient was taken to the angio suite, placed in supine position. Left arm was prepped and draped in usual sterile fashion including her previously placed PICC line. I cut the PICC line catheter and attempted to pass a wire through the area of coiling. I could not uncoil the catheter. I made multiple attempts and multiple maneuvers. At one point, the catheter slipped underneath the skin and into the vein. I could not retrieve it with a pair of pickups. The catheter itself was coiled in the subclavian vein. I still had access and so I exchanged out for a 4-Surinamese sheath. I opened a 4-Surinamese snare. I passed a 4-Surinamese snare into the subclavian vein and innominate vein and was able to snare the tip of the catheter. I withdrew the catheter in its entirety. With the catheter tip still in the basilic vein, [place] [address] OPERATIVE REPORT Name: GERIGARRICKESTHER Room: [address] IN ..#: [id number] Admission: 09/12/18 Attend Phys: Tammi Martin MD Discharge: Date of : 46 Report #: [id number] cut the catheter and placed a new wire down into the central venous structures. I removed the entirety of the old PICC line. Now that I had retrieved the foreign body from the central venous structures, I turned my attention to place a new PICC line. I used Seldinger technique to place a PICC sheath. I then deployed my new PICC line into the central venous structures. There was clearly a stenosis/occlusion at the level of the innominate vein. Using a wire, I was able to carefully cross the stenotic area. I could then pass my catheter over the wire into the right atrium. I placed the catheter tip in the right atrium. I removed my wire. We secured the catheter in standard fashion. All ports flushed without difficulty. Catheter was dressed in standard fashion. <ELECTRONICALLY SIGNED> By: Daniel Turk MD 09/21/18 0713 1445 1525Daniel Turk MD /nt
--- NOTE | 2018-09-21 07:31 | OP ---
[address] [address] OPERATIVE REPORT Name: ESTHER MIX Room: [address] IN M.R.#: [id number] Admission: 09/12/18 Attend Phys: Tammi Martin MD Discharge: Date of : 46 Report #: [id number] THIS REPORT FOR: //name// CC: Tammi Tello DATE OF SERVICE: 09/15/2018 SURGEON: Verena Cadena DPM PREOPERATIVE DIAGNOSES: Osteomyelitis, right second, third and fourth toes with ascending cellulitis and partial thickness ulceration and blistering left medial forefoot. POSTOPERATIVE DIAGNOSES: Osteomyelitis, right second, third and fourth toes with ascending cellulitis and partial thickness ulceration and blistering left medial forefoot. PROCEDURE: Amputation, right second, third and fourth toes at the level of the metatarsophalangeal joint. Each toe with corresponding metatarsal head will be sent to pathology for culture and pathology second, third and fourth toes are , so there were 3 separate specimens. Procedure performed on the left foot was debridement of blister and cleansing of left foot. DESCRIPTION OF PROCEDURE: The patient was brought to the OR and placed in a supine position, at which time, anesthesia was administered. Local block performed to bilateral feet, dividing 30 mL of a 1:1 mix of 1% lidocaine plain and 0.5% Marcaine plain in bilateral ankle blocks. Next, the feet were prepped and draped in the usual sterile and aseptic manner. A timeout was called. All parties in the OR were in agreement as to the extremities to the patient allergies and procedures to be performed. Attention was directed to the left foot where utilizing both sharp and mechanical debridement. The superficial ulceration was debrided along with any remaining blister was deroofed and debrided. The skin was scraped with a #10 blade down to good bleeding tissue. This was partial thickness wound to the medial forefoot of the left foot. There were no purulent areas noted, but any fibrotic and abnormal tissue was removed. Next, attention was directed to the right foot where the second, third and fourth toes were clamped and utilizing a #10 blade, 2 semicircular incisions were made at the bases of the second, third and fourth toes of the right foot. The incision was carried down through deep tissue going all the way down to the metatarsophalangeal joints of each digit. The ligamentous attachments were removed at the MPJ and the three toes were removed from the surgical site. Next, the heads of the corresponding metatarsals second, third and fourth were removed with an osteotome. Care was taken that each metatarsal head was placed with each corresponding toe. The toes were into three containers clearly marked this is for pathology and culture. Next, [place] [address] OPERATIVE REPORT Name: MARIA DEL ROSARIOESTHER BRITT Room: [address] ADM IN M.R.#: [id number] Admission: 09/12/18 Attend Phys: Tammi Martin MD Discharge: Date of : 46 Report #: [id number] inspected. Any abnormal tissue was removed. There was no purulent drainage. The patient had good blood flow from the surgical sites. Next, utilizing a Augustine drain this was woven into the surgical site and subcutaneous tissue was closed with 3-0 Vicryl, skin closed with 3-0 Nylon. Next, surgical site was then scrubbed and Xeroform gauze, ABDs, fluffs, Shanika and an Charan wrap was applied to the right foot and the same type of dressing was applied to the left foot. Both dressings were secured with Charan bandages. Blood flow was persistent to the toes throughout the surgery. No tourniquets were used. <ELECTRONICALLY SIGNED> By: Verena Cadena DPM 09/21/18 0731 1711 1825Ajey Cadena DPM /jonathan
[2018-09-21 08:00] VITALS: BP 160/74
--- NOTE | 2018-09-21 11:19 | NUR ---
ASSUMED PT CARE AT O800, AOX4, UP WITH WALKER, O2 SAT AT 90'S RA. PT DENIES PAIN. PT WOUND D/C/I BY PODIATRY. PT FOR ACCU CHECK. PT RECEIVING ANTIBIOTIC. PT PICC LINE INTACT. VSS, AM ASSESSMENTAS CHARTED. MEDS GIVEN PER APR. CALL LIGHT WITHIN REACG. WILL CONTINUE TO MONITOR.
[2018-09-21 12:16] VITALS: BP 116/71
--- NOTE | 2018-09-21 13:08 | CON ---
[address] [address] CONSULTATION Name: ESTHER MIX Room: [address] IN M.R.#: [id number] Admission: 09/12/18 Attend Phys: Tammi Martin MD Discharge: Date of : 46 Report #: [id number] THIS REPORT FOR: //name// CC: Tammi Tello REASON FOR CONSULTATION: Bilateral foot ulcers with diabetes mellitus and cellulitis. HISTORY OF PRESENT ILLNESS: The patient admitted to the Emergency Room for worsening infection to the right lesser toes and newly formed wound to the left medial foot. She was being treated as an outpatient at [facility], and has had prior surgical debridement of her right lesser digits for osteomyelitis. She currently has residual stumps to the right second, third and fourth toes, all of which have open ulcerations to the dorsal aspect. The right fifth digit also has an open lesion. The left medial first metatarsal and great toe has a superficial wound of unknown etiology. She has a history of peripheral vasculopathy and type 2 diabetes mellitus. Prior arterial Dopple showed right NAZANIN of 1.12 and a left 1.17 with no evidence of focal stenosis. A new arterial Doppler was ordered. The patient cannot have MRI due to defibrillator. 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 Her feet are mostly insensate. She denies foot pain. She is on parenteral vancomycin with good tolerance. LABORATORY DATA: WBC 6.6, hemoglobin 9.7, hematocrit 30.3, platelets 178. BUN 17, creatinine 1.0, glucose 112. PHYSICAL EXAMINATION: There are full thickness ulcerations to the dorsal aspect of the right second, third, fourth and fifth toes. The second, third and fourth toes appear to be remnant from prior surgical debridement. There is no visible bone, tendon or joint. There is a large superficial wound to the left medial foot from the dorsal hallux along the medial foot. This appears to be more of a blister which has formed and subsequently reversed. She has strong dorsalis pedis and posterior tibial pulses on the right, faint pulses on the left. +3 nonpitting edema to both legs. Her skin is thin and dystrophic with subcutaneous atrophy. Remaining toenails to the left foot are dystrophic without paronychia. IMPRESSION: 1. Open ulcerations to right second through fifth toes, likely osteomyelitis. 2. Superficial ulceration, left medial foot. 3. Type 2 diabetes mellitus with peripheral arterial disease and neuropathy. PLAN: I ordered bilateral foot radiographs and took an aerobic wound culture from the right toes. The patient likely has chronic osteomyelitis to the right lesser digits and requires surgical amputation. I will [place] [address] CONSULTATION Name: ESTHER MIX Room: [address] ADM IN M.R.#: [id number] Admission: 09/12/18 Attend Phys: Tammi Martin MD Discharge: Date of : 46 Report #: [id number] study and consult Vascular Surgery. If osteomyelitis to right digits, I will recommend amputation of the second through fifth toes with primary closure. <ELECTRONICALLY SIGNED> By: Zach Cadena DPM 09/21/18 1308 1120 [id number] Cadena DPM /nt
[2018-09-21] MEDS ORDERED: VITAMIN B-12500 MCG PO (16:15)
[2018-09-21] MEDS ORDERED: SYNTHROID50 MCG PO (16:15)
[2018-09-21] MEDS ORDERED: NEXIUM40 MG PO (16:15)
[2018-09-21] MEDS ORDERED: THERA M PLUS T1 EAC2 PO (16:15)
[2018-09-21] MEDS ORDERED: POTASSIUM20 PO (16:16)
[2018-09-21] MEDS ORDERED: IRON325 PO (16:21)
[2018-09-21] MEDS ORDERED: LIPITOR40 MG PO (16:21)
--- NOTE | 2018-09-21 16:39 | NUR ---
DC ORDERS CALLED AND FAXED TO [facility] AND [facility]. UPDATED PT AND NURSE. TO DC LATER TODAY
[2018-09-21] MEDS ORDERED: BENTYL 10 MG CA10 M1 PO (17:15)
[2018-09-21 17:26] VITALS: BP 160/74
--- NOTE | 2018-09-21 18:00 | NUR ---
DISCHARGED PLAN DISCUSS WITH THE PATIENT. MEDICATION PACKET/SCRIPT GIVEN. REMINDED TO FOLLOW WITH PCP, PODIATRY, INFECTIOUS DSE, VASCULAR. PICC LINE INTACT. ALL BELONGINGS PACKED AND CHECKED. LEFT THE UNIT AT 1750
== END 2018-09-21 18:07 | disposition home health service (06) | DRG 853 ==
LOC: M.ERS 13:37 → M.TBA-ER 17:00 → M.3W 17:00 → M.2W 17:00 → M.ORTHSURG 18:20 → M.3W 20:25 → M.2W 09-15 18:24
PROVIDERS: Family Medicine; Internal Medicine Infectious Disease; Personal Emergency Response Attendant; Podiatrist Foot & Ankle Surgery; ADMIT Internal Medicine
PROC: 02HV33Z Insertion of Infusion Device into Superior Vena Cava, Percutaneous Approach (ICD-10-PCS; principal; 2018-09-12)
PROC: 0Y6V0Z0 Detachment at Right 4th Toe, Complete, Open Approach (ICD-10-PCS; 2018-09-15)
PROC: 0Y6T0Z0 Detachment at Right 3rd Toe, Complete, Open Approach (ICD-10-PCS; 2018-09-15)
PROC: 0Y6R0Z0 Detachment at Right 2nd Toe, Complete, Open Approach (ICD-10-PCS; 2018-09-15)
PROC: 0HBNXZZ Excision of Left Foot Skin, External Approach (ICD-10-PCS; 2018-09-15)
PROC: 02PYX3Z Removal of Infusion Device from Great Vessel, External Approach (ICD-10-PCS; 2018-09-19)
PROC: 02H633Z Insertion of Infusion Device into Right Atrium, Percutaneous Approach (ICD-10-PCS; 2018-09-19)
DX: A41.02 Sepsis due to Methicillin resistant Staphylococcus aureus (principal); E43 Unspecified severe protein-calorie malnutrition; L03.116 Cellulitis of left lower limb; I13.0 Hypertensive heart and chronic kidney disease with heart failure and stage 1 through stage 4 chronic kidney disease, or unspecified chronic kidney disease; N18.4 Chronic kidney disease, stage 4 (severe); L03.115 Cellulitis of right lower limb; I50.42 Chronic combined systolic (congestive) and diastolic (congestive) heart failure; M86.8X7 Other osteomyelitis, ankle and foot; E11.22 Type 2 diabetes mellitus with diabetic chronic kidney disease; E11.621 Type 2 diabetes mellitus with foot ulcer; E11.51 Type 2 diabetes mellitus with diabetic peripheral angiopathy without gangrene; L97.519 Non-pressure chronic ulcer of other part of right foot with unspecified severity; E11.69 Type 2 diabetes mellitus with other specified complication; L97.529 Non-pressure chronic ulcer of other part of left foot with unspecified severity; I25.10 Atherosclerotic heart disease of native coronary artery without angina pectoris; Z96.1 Presence of intraocular lens; E11.40 Type 2 diabetes mellitus with diabetic neuropathy, unspecified; D50.9 Iron deficiency anemia, unspecified; D63.8 Anemia in other chronic diseases classified elsewhere; E87.6 Hypokalemia; E03.9 Hypothyroidism, unspecified; T36.8X5A Adverse effect of other systemic antibiotics, initial encounter; Z87.81 Personal history of (healed) traumatic fracture; Z90.49 Acquired absence of other specified parts of digestive tract; Z95.810 Presence of automatic (implantable) cardiac defibrillator; Z68.27 Body mass index [BMI] 27.0-27.9, adult; Z98.41 Cataract extraction status, right eye; Z79.01 Long term (current) use of anticoagulants; Z86.14 Personal history of Methicillin resistant Staphylococcus aureus infection; Z79.4 Long term (current) use of insulin; Z79.51 Long term (current) use of inhaled steroids; Z79.899 Other long term (current) drug therapy; Z88.1 Allergy status to other antibiotic agents; Z88.5 Allergy status to narcotic agent; Z88.0 Allergy status to penicillin; Z88.2 Allergy status to sulfonamides; Z88.8 Allergy status to other drugs, medicaments and biological substances; Z91.018 Allergy to other foods

== ENCOUNTER 2018-12-13 11:18 | Inpatient (IN) | payer OTHER ==
[~2018-12-13] VITALS: Ht 180.3 cm; Wt 89.3 kg
[~2018-12-13 11:18] MED LIST changes: +IRON325 PO; +LIPITOR40 MG PO; +NEXIUM40 MG PO; +SYNTHROID50 MCG PO; +THERA M PLUS T1 EAC2 PO; +VITAMIN B-12500 MCG PO
[2018-12-13 11:19] VITALS: BP 141/89
[2018-12-13 12:34] LABS: ABSOLUTE BASOPHILS 0.1 thou/uL (0.0-0.2); ABSOLUTE EOSINOPHILS 0.1 thou/uL (0.0-0.7); ABSOLUTE LYMPHOCYTES 2.1 thou/uL (0.8-5.3); ABSOLUTE MONOCYTES 0.4 thou/uL (0.0-1.2); ABSOLUTE NEUTROPHILS 4.9 thou/uL (1.6-8.1); BASOPHILS 1.2 %; EOSINOPHILS 1.6 %; HEMATOCRIT 37.9 % (37.0-47.0); HEMOGLOBIN 12.4 gm/dL (12.0-15.0); LYMPHOCYTES 27.4 %; MCH 28.2 pg (26.0-34.0); MCHC 32.7 g/dL (28.0-37.0); MCV 86.5 fL (80.0-100.0); MONOCYTES 5.6 %; NUCLEATED RBCS 0 /100WBC; PLATELET COUNT* 194 thou/uL (150-400); POLYS 64.2 %; RBC 4.38 mil/uL (4.20-5.00); RDW-CV 14.7 % (10.5-14.5); WBC 7.6 thou/uL (4.0-11.0)
[2018-12-13 12:41] LABS: PROTIME 10.6 Seconds (9.20-11.50)
[2018-12-13 13:02] LABS: CALCIUM 9.6 mg/dL (8.5-10.1); CREATININE 1.4 mg/dL (0.6-1.3); POTASSIUM 3.8 mmol/L (3.5-5.1)
[2018-12-13 13:13] LABS: ALBUMIN 3.1 g/dL (3.4-5.0); TOTAL BILIRUBIN 0.7 mg/dL (<0.1-1.0); TOTAL PROTEIN 6.3 g/dL (6.4-8.2)
--- NOTE | 2018-12-13 15:18 | EKG ---
[place] [address] ELECTROCARDIOGRAM REPORT Name: ESTHER MIX Room: [place] [address] ADM IN [facility].#: [id number] Admission: 12/13/18 Attend Phys: Damir Velazquez, Discharge: Date of : 46 Report #: [id number] THIS REPORT FOR: //name// [facility] ED Test Date: 2018-12-13 Test Time: 12:01:51 Pat Name: ESTHER MIX Department: Room: [facility] Gender: F Component Assembler: : 1950 Requested By: Daniel Jordan Order Number: [id number] MD: Chilo Norris Measurements Intervals [place] Rate: 73 P: 72 WV: 215 QRS: -3 QRSD: 101 T: 69 QT: 497 QTc: 548 Interpretive Statements Sinus rhythm Borderline prolonged WV interval Low voltage, precordial leads Consider anterior infarct Prolonged QT interval Compared to ECG 09/15/2018 10:09:46 Myocardial infarct finding now present Electronically Signed On 12-13-2018 15:17:40 CDT by Chilo Norris [email or web address] <ELECTRONICALLY SIGNED> By: Chilo Norris MD, FACC 12/13/18 1517 1201 1201 Chilo Norris MD, [facility] /EPI
[2018-12-13 15:22] VITALS: BP 138/68
[2018-12-13 15:28] VITALS: BP 145/72
--- NOTE | 2018-12-13 16:30 | NUR ---
PATIENT TO UNIT VIA WC AND ED RN AT 1515. A&OX4, [place]. VS OBTAINED, WNL. ASSESSMENT DOCUMENTED. PATIENT IS IN AGREEMENT WITH SCD'S. ORIENTED TO ROOM. CALL LIGHT IN REACH. HOURLY ROUNDING FOR SAFETY AND PATIENT NEEDS.
[2018-12-13 20:00] VITALS: BP 163/77
--- NOTE | 2018-12-14 04:59 | NUR ---
tommy patient care at 1900. patient alert and oriented times four. No complaints of pain noted. did have high anxiety which she took anxiety meds for. abrasion noted to right knee. 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
[2018-12-14 05:01] LABS: HEMATOCRIT 33.4 % (37.0-47.0); MCH 28.3 pg (26.0-34.0); MCHC 32.8 g/dL (28.0-37.0); MCV 86.2 fL (80.0-100.0); MPV 10.7 fl. (7.2-11.1); RBC 3.87 mil/uL (4.20-5.00); RDW-CV 14.6 % (10.5-14.5); WBC 5.8 thou/uL (4.0-11.0)
[2018-12-14 05:27] LABS: CALCIUM 8.2 mg/dL (8.5-10.1); CREATININE 1.2 mg/dL (0.6-1.3); MAGNESIUM 1.8 mg/dL (1.8-2.4); POTASSIUM 3.2 mmol/L (3.5-5.1)
[2018-12-14 08:29] VITALS: BP 126/64
--- NOTE | 2018-12-14 13:59 | NUR ---
Pt lives at home with . Pt has hx with [facility] for iv abx and [facility] for HH services. Pt has RW and shower bench. SW to continue to follow to assist with safe dc planning.
[2018-12-14 15:01] LABS: ABSOLUTE EOSINOPHILS 0.1 thou/uL (0.0-0.7); ABSOLUTE LYMPHOCYTES 1.7 thou/uL (0.8-5.3); ABSOLUTE MONOCYTES 0.4 thou/uL (0.0-1.2); ABSOLUTE NEUTROPHILS 3.5 thou/uL (1.6-8.1); BASOPHILS 0.7 %; EOSINOPHILS 2.5 %; HEMATOCRIT 35.6 % (37.0-47.0); HEMOGLOBIN 11.9 gm/dL (12.0-15.0); LYMPHOCYTES 30.1 %; MCHC 33.4 g/dL (28.0-37.0); MONOCYTES 6.4 %; MPV 10.9 fl. (7.2-11.1); NUCLEATED RBCS 0 /100WBC; PLATELET COUNT* 180 thou/uL (150-400); POLYS 60.3 %; WBC 5.8 thou/uL (4.0-11.0)
[2018-12-14 15:17] LABS: ALBUMIN 2.6 g/dL (3.4-5.0); CALCIUM 8.7 mg/dL (8.5-10.1); CREATININE 1.3 mg/dL (0.6-1.3); POTASSIUM 3.4 mmol/L (3.5-5.1); TOTAL BILIRUBIN 0.5 mg/dL (<0.1-1.0)
[2018-12-14 16:17] VITALS: BP 144/75
--- NOTE | 2018-12-14 18:17 | NUR ---
PATIENT RESTING IN BED. PATIENT DENIES ANY PAIN. PATIENT IS UP STANDBY ASSIST TO COMMODE. PATIENT SEEN BY DR VILLEGAS THIS AFTERNOON AND WOUND CARE COMPLETED BY PHYSICIAN. PATIENT SCHEDULED FOR SURGERY TOMORROW. PATIENT UNABLE TO HAVE MRI ORDERED DUE TO DEFIBULATOR, DR VILLEGAS NOTIFIED. PATIENT HAS GOOD APPETITE. PATIENT DENIES ANY NEEDS AT THIS TIME. CALL LIGHT WITHIN REACH.
[2018-12-14 21:08] VITALS: BP 136/83
--- NOTE | 2018-12-15 06:20 | NUR ---
PT ALERT AND ORINETED. VSS ON RA. MEDS GIVEN PER EMAR. NPO AFTER MN FOR SURGERY THIS AFTERNOON. RFA SL. ISOLATION PRECAUTION IN PLACE. ATIVAN GIVEN PER PT'S REQUEST. UP TO [facility]SC. SURGERY CONSENT NOT YET SIGNED. CALL LIGHT WITHIN REACH. HOURLY ROUNDINGS MADE. WILL CONTINUE TO MONITOR.
[2018-12-15 07:07] VITALS: BP 136/83
[2018-12-15 08:45] VITALS: BP 139/77
--- NOTE | 2018-12-15 11:53 | CON ---
[address] [address] CONSULTATION Name: ESTHER MIX Room: [address] IN .R.#: [id number] Admission: 12/13/18 Attend Phys: Damir Velazquez, Discharge: Date of : 46 Report #: [id number] THIS REPORT FOR: //name// CC: Katlyn Velazquez DATE OF SERVICE: 12/14/2018 ATTENDING PHYSICIAN: Damir Velazquez MD. REASON FOR EVALUATION: Right distal lower extremity skin and soft tissue infection with possible deep including osteomyelitis involving the fifth toe. HISTORY OF PRESENT ILLNESS: Chart reviewed, the patient examined. This is a 68-year-old woman well known to myself, has extensive medical history, severe vasculopathy, setting of diabetes mellitus type 2 insulin requiring, has been plagued with recurrent distal lower extremity ulcerations, likely multifactorial including some neuropathic component who has been followed as an outpatient, this is a second hospitalization this year with similar type of complaints. She was being evaluated as an outpatient by Dr. Cadena who felt that clinically the wounds were deteriorating particularly on the right foot lateral aspect. She was referred for admission for suspected deep infection, likely osteomyelitis. Imaging was undertaken of the foot, there was overt evidence of bony destruction. MRI was postponed due to the fact she has a pacemaker defibrillator, empirically started on therapy with vancomycin. Review of previous cultures, history of MRSA, dating back at least a couple of years. At this point, she is not overtly toxic. Denies any recent fevers or chills. No pulmonary or gastrointestinal related complaints. ALLERGIES: EXTENSIVE INCLUDING OXYCODONE, QUINOLONES, CEPHALOSPORINS, PENICILLINS, SULFA, LIDOCAINE, MORPHINE. CURRENT MEDICATIONS: Include multivitamin, cyanocobalamin, furosemide, bupropion, levothyroxine, pantoprazole, vancomycin, atorvastatin, ferrous sulfate, carvedilol, rivaroxaban, lorazepam, ipratropium, and albuterol inhaler. PAST MEDICAL HISTORY: As described above, diabetes mellitus type 2, insulin requiring, complicated by diffuse vasculopathy, has advanced renal disease, has history of cardiomyopathy with congestive heart failure, history of cardiac dysrhythmias with implantable defibrillator, known coronary artery disease with recurrent skin and soft tissue infections as well as more deep infections involving the distal lower extremity, peripheral neuropathy, hypothyroidism, mitral regurgitation, and multiple toe amputations. SOCIAL HISTORY: Nonsmoker, no ethanol, [place] [address] CONSULTATION Name: ESTHER MIX Room: [address]#: [id number] Admission: 12/13/18 Attend Phys: Damir Velazquez, Discharge: Date of : 46 Report #: [id number] FAMILY HISTORY: Noncontributory. REVIEW OF SYSTEMS: Otherwise unremarkable with the exception of the above history of present illness. PHYSICAL EXAMINATION: GENERAL: She is chronically ill appearing. She is pleasant, cooperative. She has mild distress, undernourished. VITAL SIGNS: Temperature 98.5, pulse 72, respirations 18, blood pressure 126/64. SKIN: Warm, dry, no rashes. She is somewhat pale. HEENT: Normocephalic. Extraocular muscles intact. NECK: Supple. LUNGS: Diminished breath sounds. Few scattered crackles at the bases. HEART: Regular. She does have a diastolic murmur. ABDOMEN: Soft, nontender. I do not appreciate any peritoneal signs. EXTREMITIES: I did review the photographs of her foot, some marked inflammatory changes. /RECTAL: Deferred. LABORATORY DATA: Initial CBC: White count of 7.6, H and H 12.4/37.9, platelets of 194. Lactic acid of 2.3. PT of 10.6, INR of 1.0. Troponin 0.08. Electrolytes: Sodium 142, potassium 3, chloride 106, bicarb is 25, anion gap 11, BUN and creatinine 15 and 1.4, glucose of 246. LFTs unremarkable. Albumin 3.1, total protein 6.3, estimated GFR of 37. X-ray of the foot as noted above. Blood cultures sterile thus far. ASSESSMENT AND PLAN: Likely deep infection involving the right foot. The patient has known multifactorial issues including vasculopathy, neuropathy, recurrent ulcers. I agree with empiric antimicrobial therapy, history of MRSA likely ____ vancomycin as reasonable choice given multiple drug hypersensitivities/adverse drug effects to antibiotics. She is less vigorous than previous, certainly a component of undernourishment as well. We will monitor expectantly. Initiate incentive spirometry, pending some debridement versus amputation as soon as tomorrow. <ELECTRONICALLY SIGNED> By: Jonathan Perez MD 12/15/18 1153 1602 [id number] Perez MD /nt
--- NOTE | 2018-12-15 12:23 | NUR ---
Nutrition: Pt admitted with cellulitis in Rt foot. NPO for surgery today - 5th toe amputation. H/o DM, HTN, CHF. Labs: BG 185-110. alb 2.6, prealb 12.9. RX: MVI, B12, insulin, vanc. Wt is near usual of 196#. RD ordered Patrick TID to aid in wound healing and low protein stores. Mild risk at this time. Will f/u for diet advancement to CHO control, meal intake, supplement intake, labs on 12/22/18.
[2018-12-15 12:53] VITALS: BP 137/81
--- NOTE | 2018-12-15 17:11 | NUR ---
VSS.AMPUTATION SURGERY COMPLETED ON RIGHT FOOT 5TH RAY TODAY.NO C/O PAIN.CONTACT ISOLATION MAINTAINED.PT EDUCATED ON NON WEIGHT BEARING ON RIGHT FOOT.HOLDING OF XARELTO X2 DOSES STARTING THIS EVENING.HOLD VANC UNTIL TOMORROW PER PHARMACY. PT COMMUNICATES UNDERSTANDING OF PLAN OF CARE.HOURLY ROUNDING COMPLETED.CALL LIGHT AND FALL PRECAUTIONS IN PLACE.WILL CONTINUE TO MONITOR FOR DURATION OF SHIFT.
[2018-12-15 17:12] VITALS: BP 128/77
[2018-12-15 20:00] VITALS: BP 139/75
--- NOTE | 2018-12-16 06:44 | NUR ---
PT. PROGRESSING TOWARDS GOALS. HAS REMAINED NON-WEIGHT BEARING ON RIGHT FOOT POST OP. NO COMPLAINTS OF PAIN. VITAL SIGNS STABLE. PT. USED BEDPAN TO VOID. IV SALINE LOCKED. CALL LIGHT REMAINS IN REACH, WILL CONTINUE TO MONITOR.
[2018-12-16 10:20] VITALS: BP 141/88
--- NOTE | 2018-12-16 12:08 | NUR ---
CALL FROM [facility]. SHE SAID PT.IS CURRENT ON THEIR SERVICE AND WILL ACCEPT HER BACK AT DISCHARGE. [phone]
--- NOTE | 2018-12-16 17:02 | OP ---
[address] [address] OPERATIVE REPORT Name: ESTHER MIX Room: [address] IN ..#: [id number] Admission: 12/13/18 Attend Phys: Damir Velazquez, Discharge: Date of : 46 Report #: [id number] THIS REPORT FOR: //name// CC: Katlyn Velazquez DATE OF SERVICE: 12/15/2018 PREOPERATIVE DIAGNOSES: Osteomyelitis, right fifth metatarsophalangeal joint. Abscess, right fifth metatarsophalangeal joint. Chronic diabetic foot ulcer, plantar to right fifth metatarsophalangeal joint. POSTOPERATIVE DIAGNOSES: Osteomyelitis, right fifth metatarsophalangeal joint. Abscess, right fifth metatarsophalangeal joint. Chronic diabetic foot ulcer, plantar to right fifth metatarsophalangeal joint. PROCEDURE: Excision of ulceration and partial fifth ray amputation and application of Stravix graft; 2 grafts were used, one was 3 x 6 cm and one was 2 x 4 cm. PATHOLOGY: Deep aerobic and anaerobic cultures and amputated partial fifth ray. ANESTHESIA: Local MAC. HEMOSTASIS: Right pneumatic ankle tourniquet set at 250 mmHg pressure. ESTIMATED BLOOD LOSS: Less than 5 mL. INJECTABLES: 10 mL 0.5% bupivacaine plain preoperatively and 10 mL 0.25% bupivacaine plain intraoperatively. MATERIALS: Two Stravix grafts, one was 3 x 6 cm and one was 2 x 4 cm and 3-0 nylon. DESCRIPTION OF PROCEDURE: The patient was brought to the OR and placed in a supine position, at which time, anesthesia was administered. A well-padded pneumatic ankle tourniquet was placed 1 cm above the right medial malleoli. A local block was performed to the right lateral forefoot. The patient was prepped and draped in the usual sterile and aseptic manner. Please note prior to draping, utilizing a Betadine scrub, I scrubbed the left foot all the way up to the ankle, taking care to scrub where the patient's current ulcerations are on the left foot. Attention was then directed to the right foot where the fifth toe ulcer and distal fifth metatarsal head was resected in total. The fifth metatarsal was resected down to the mid shaft. This was submitted as a single piece to pathology. Deep cultures were obtained at this time. Once abnormal tissue was removed, the surgical site was flushed with [place] [address] OPERATIVE REPORT Name: ESTHER MIX Room: [address]#: [id number] Admission: 12/13/18 Attend Phys: Damir Velazquez, Discharge: Date of : 46 Report #: [id number] antibiotic solution and a remaining devitalized tissue, necrotic tissue, fibrotic tissue were removed from the surgical site. Any noted vessels were cauterized with handheld cautery. Next, utilizing the Stravix graft, the 3 x 6 graft was fenestrated after preparation and was sutured down to the surgical site utilizing 3-0 nylon. It was then determined more graft was needed for the distal aspect of the wound and the 2 x 4 graft was opened, prepared, fenestrated, and sutured into place with 3-0 nylon. These grafts were then covered with Adaptic, 4 x 4, Shanika, soft roll and an Charan wrap. Prior to placement of the dressing, the ankle tourniquet was deflated and vascular status returned to the right foot and active bleeding was observed at the surgical site. The patient tolerated procedure well, left the OR with vital signs stable and vascular status intact to the right foot. The patient will be transferred back to the floor post-procedure. <ELECTRONICALLY SIGNED> By: Verena Cadena DPM 12/16/18 1702 0811 [id number] Cadena DPM /nt
[2018-12-16 17:13] VITALS: BP 147/79
--- NOTE | 2018-12-16 18:52 | NUR ---
PATIENT TOLERATED LINE PLACEMENT VANC DOSE ADJUSTED PT VERY TIRED.
[2018-12-16 20:15] VITALS: BP 144/84
--- NOTE | 2018-12-16 23:08 | NUR ---
INITAL ASSESMENT COMPLETED AT 2014. PT PLEASANT AND COOPERATIVE, DENIED PAIN OR DISCOMFORT AT THAT TIME. PT REQUESTED TO GO SEE HER WHO PRESENTED TO ED TONIGHT WITH DIFFICULTY BRETHING. SPOKE WITH DR SALDANA AND RECIEVED PERMISSION FOR PT TO DO SO. PT LEFT PER WHEELCHAIR WITH STAFF AT 2200 AND RETURNED AT 2230.
[2018-12-17 08:00] VITALS: BP 139/83
[2018-12-17 16:00] VITALS: BP 130/70
--- NOTE | 2018-12-17 18:48 | NUR ---
I ASSUMED CARE OF THE PATIENT AT 0700. SHE IS ALERT AND ORIENTED X4 AND IS NWB ON THE RIGHT. SHE WAS COMPLIANT ALL DAY. BED IS IN THE LOW LOCKED POSITION AND CALL LIGHT IS IN REACH. HOURLY ROUNDING WAS COMPLETED AND PATIENT NEEDS ARE MET. PAIN IS DENIED. PATIENT IS NOT EATING WELL. HER IS IN #211 AND WENT FOR A VISIT AFTER DINNER. ISOLATION WAS MAINTAINED FOR MRSA. WILL CONTINUE TO MONITOR.
[2018-12-17 20:30] VITALS: BP 144/83
--- NOTE | 2018-12-17 21:16 | NUR ---
INITAL ASSESMENT COMPLETED AT 2029. PT DENIED PAIN OR DISCOMFORT AT THAT TIME. PT RETURNED TO FLOOR AT THAT TIME AFTER SEEING HER ON TELEMETRY FLOOR. MEDS AND INSULIN GIVEN ORDERED PER EMAR. CALL LIGHT IN REACH, PT USING PROPERLY.
[2018-12-18 04:56] LABS: HEMATOCRIT 33.3 % (37.0-47.0); HEMOGLOBIN 10.9 gm/dL (12.0-15.0); MCH 28.5 pg (26.0-34.0); MCHC 32.7 g/dL (28.0-37.0); MCV 87.1 fL (80.0-100.0); MPV 11.6 fl. (7.2-11.1); RBC 3.82 mil/uL (4.20-5.00); WBC 5.9 thou/uL (4.0-11.0)
[2018-12-18 05:10] LABS: CALCIUM 8.4 mg/dL (8.5-10.1); CREATININE 1.3 mg/dL (0.6-1.3); MAGNESIUM 1.9 mg/dL (1.8-2.4); POTASSIUM 3.9 mmol/L (3.5-5.1)
[2018-12-18 08:00] VITALS: BP 149/84
[2018-12-18 15:48] VITALS: BP 144/97
[2018-12-19 04:41] VITALS: BP 124/59
--- NOTE | 2018-12-19 05:34 | NUR ---
Pt reports she rested well overnight. Up to BS ad hattie for voiding. No complaints. Will continue to monitor.
[2018-12-19 08:00] VITALS: BP 149/83
[2018-12-19 16:05] VITALS: BP 131/73
--- NOTE | 2018-12-19 16:06 | NUR ---
AM ASSESSMENT AND VITAL SIGNS COMPLETED DOCUMENTED. PT HAS BEEN UP TOLERATED IN HER ROOM, I REINFORCED THE IMPORTANCE OF NOT PUTTING WEIGHT ON THE RIGHT FOOT. IV ABX CONTINUE WITH AN ADJUSTED DOSE OF VANCOMYCIN. PT HAS DENIED NEED FOR PAIN MEDICATION. HOURLY ROUNDING CONTINUES.
--- NOTE | 2018-12-19 17:48 | NUR ---
ASSUMED CARE OF PATIENT AT 1630, REPORT RECEIVED FROM NETTIE COUGHLIN. PATIENT SITTING UP ON SIDE OF BED FOR DINNER. NO COMPLAINTS AT THIS TIME. PATIENT IV SL. BSC IN PLACE. CALL LIGHT WITHIN REACH. EVENING MEDS GIVEN ORDERED.
[2018-12-19 20:54] VITALS: BP 125/60
[2018-12-19 20:55] VITALS: BP 125/60
--- NOTE | 2018-12-20 06:28 | NUR ---
PT SLEPT FAIRLY WELL OVERNIGHT. UP TO BSC TO VOID WITHOUT DIFFICULTY. L SUBCLAVIAN DL SL, ABX GIVEN ORDERED. DRSG CDI TO FAM FEET. NO LABS THIS MORNING. HS ACCUCHECK 165, PT REFUSED INSULIN. HAS DENIED PAIN. REMAINS ON CONTACT ISOLATION FOR MRSA. ABLE TO USE CALL LITE AND MAKE NEEDS KNOWN.
[2018-12-20 07:45] VITALS: BP 140/88
[2018-12-20 12:32] VITALS: BP 140/88
--- NOTE | 2018-12-20 15:07 | PATH ---
[address] [place] [address] PATHOLOGY RPT PROCEDURE Name: BRANDY MIX Room: [address] IN .R.#: [id number] Admission: 12/13/18 Date of : 46 Discharge: Report #: [id number] Path Case #: [id number] [facility] Accession Number: [id number] . 01 Material submitted: . foot - PARTIAL FIFTH RAY RIGHT FOOT. Modifiers: right . 01 Clinical history: . Osteomyelitis right foot . 02 Diagnosis: Partial fifth ray right foot: - Benign toe with nonspecific ulceration and osteomyelitis of underlying phalangeal bone, with proximal disarticulation margin free of osteomyelitis. - Separate benign osteocartilaginous segment without osteomyelitis. (GABRIELA:mateo; 12/20/2018) QMS 12/20/2018 1257 Local . 02 Electronically signed: . Matt Ring MD, Pathologist NPI- [id number] . 01 Gross description: . The specimen is received in formalin, labeled "Brandy Mix, partial fifth ray right foot". Received is an amputated digit measuring 6.8 x 3.0 x 2.5 cm in greatest dimensions. The bone margin is smooth and concave in appearance, consistent with disarticulation, and the soft tissue extends 3.2 cm proximal to the bone margin. The bone and soft tissue margins are inked black. There is a slight amount of pale oreilly nail tissue present. On the lateral/plantar aspect of the specimen, there is a poorly circumscribed, irregular in contour and light oreilly lesion present measuring 2.9 x 2.2 cm, which is 0.4 cm from the closest skin margin. There is no bone underlying this lesion. There is a second lesion proximal to the nailbed which is poorly circumscribed, irregular in contour and pink-oreilly measuring 0.7 x 0.5 cm, which is 1.8 cm from the closest skin margin. . Also received within the specimen container is an additional segment of bone measuring 2.8 x 1.6 x 1.3 cm in greatest dimensions. One margin is smooth and convex in appearance, consistent with disarticulation, and the opposite margin is jagged in appearance. The jagged margin is inked black. The specimen is submitted representatively as follows: . A1 horizontal cross-section through lesion on lateral/plantar aspect of specimen A2-A3 full-thickness longitudinal cross-section through amputated digit, submitted from proximal to distal aspects, following decalcification A4 full-thickness longitudinal [place] [address] PATHOLOGY RPT PROCEDURE Name: BRANDY MIX Room: [address] IN M.R.#: [id number] Admission: 12/13/18 Date of : 46 Discharge: Report #: [id number] Path Case #: [id number] segment of bone, following decalcification. (CAA; 12/19/2018) QAC/QA 12/19/2018 0847 Local . 02 Pathologist provided ICD-10: M86.8X7, L97.519 . 02 CPT . 215711, [id number] Specimen Comment: A courtesy copy of this report has been sent to [phone] Specimen Comment: [phone], Specimen Comment: Report sent to ,DR GARCIA / DR ZAVALA Performed at: 01 [facility] [address] [facility] [address], [place] [id number] MD Juan Pablo Solis MD Phone: [phone] Performed at: [address] [facility] [address] [place] [id number] MD Matt Ring MD Phone: [phone]
[2018-12-20 16:41] VITALS: BP 142/80
[2018-12-20] MEDS ORDERED: AZTREONAM1 GM IVPB (16:45)
[2018-12-20] MEDS ORDERED: VANCOMYCIN IVPB (16:46)
--- NOTE | 2018-12-20 16:47 | NUR ---
Pt to dc home with family today. SW sent referral and information/order for iv [facility]x [facility] and received coverage information and provided to pt who discussed with her and they agreed to being able to cover the copay cost: total of $201.36/wk for the 2 iv abx and 68.60/wk for supplies. Pt current with [facility]; SW faxed information and orders/dc summary to and confirmed acceptance. SIERRA discussed later in the day with pt and pt dtr over the phone to discuss pt safety at home after concerns were presented by PT and nurse about pt safety at home; SW discussed possible need for SNF and pt not certain and said she would want to be home when her dc home even if it was just one day in SNF, SW explained that pt would remain in SNF for more than one day and pt said she did not want to go to SNF. Pt dtr and/or son will be able to be with pt and pt said she will have assist into the home and then pt would not have any stairs inside the home. Pt family to provide pt ride home. Pt nurse aware.
[2018-12-20 17:00] VITALS: BP 142/80
--- NOTE | 2018-12-20 17:36 | NUR ---
[PT A&OX4 VSS. PT CONTINUES TO BE ON ISOLATION R/T DX MRSA. PT WORKED WITH PHYS THERAPY W/ EMPHASIS ON HEEL WT BEARING AND BALANCE. PT ON IV ANTIBIOTCS, TX TO CONTINUE UPON DC TO HOME. LIMITED WT BEARING ON R FOOT. PT DOES NOT WISH TO GO TO SKILLED FACILITY AT THIS TIME. PT EDUCATED AT BEDSIDE BY INFUSION REP REGARDING HOME IV TX. SON ALSO NOTIFIED BY INFUSION PAIRER REGARDING HOME MEDICATION ADMINISTRATION. PT DRESSINGS REMAIN C/D/I. PT TO DC HOME WITH TUNNELED IV CATHETER TO CONTINUE IV ANTIBIOTICS. POSSIBLE DC HOME TONIGHT PENDING RIDE FROM FAMILY.
== END 2018-12-20 19:11 | disposition home health service (06) | DRG 573 ==
LOC: M.ERS 11:18 → M.TBA-ER 12:17 → M.3W 12:17
PROVIDERS: Emergency Medicine; Internal Medicine; ADMIT Family Medicine
PROC: 0HRMXK3 Replacement of Right Foot Skin with Nonautologous Tissue Substitute, Full Thickness, External Approach (ICD-10-PCS; principal; 2018-12-15)
PROC: 0Y6M0ZF Detachment at Right Foot, Partial 5th Ray, Open Approach (ICD-10-PCS; principal; 2018-12-15)
PROC: 0JBQ0ZZ Excision of Right Foot Subcutaneous Tissue and Fascia, Open Approach (ICD-10-PCS; 2018-12-15)
DX: L03.115 Cellulitis of right lower limb (principal); E43 Unspecified severe protein-calorie malnutrition; I50.32 Chronic diastolic (congestive) heart failure; I42.9 Cardiomyopathy, unspecified; M86.8X7 Other osteomyelitis, ankle and foot; L02.611 Cutaneous abscess of right foot; I13.0 Hypertensive heart and chronic kidney disease with heart failure and stage 1 through stage 4 chronic kidney disease, or unspecified chronic kidney disease; D59.0 Drug-induced autoimmune hemolytic anemia; Z16.39 Resistance to other specified antimicrobial drug; N18.4 Chronic kidney disease, stage 4 (severe); E11.621 Type 2 diabetes mellitus with foot ulcer; L03.116 Cellulitis of left lower limb; E11.69 Type 2 diabetes mellitus with other specified complication; E11.42 Type 2 diabetes mellitus with diabetic polyneuropathy; E11.22 Type 2 diabetes mellitus with diabetic chronic kidney disease; E11.319 Type 2 diabetes mellitus with unspecified diabetic retinopathy without macular edema; E11.40 Type 2 diabetes mellitus with diabetic neuropathy, unspecified; E03.9 Hypothyroidism, unspecified; X58.XXXA Exposure to other specified factors, initial encounter; I25.10 Atherosclerotic heart disease of native coronary artery without angina pectoris; L97.519 Non-pressure chronic ulcer of other part of right foot with unspecified severity; S63.501A Unspecified sprain of right wrist, initial encounter; W18.39XA Other fall on same level, initial encounter; L97.529 Non-pressure chronic ulcer of other part of left foot with unspecified severity; S80.01XA Contusion of right knee, initial encounter; N18.3 Chronic kidney disease, stage 3 (moderate); E11.51 Type 2 diabetes mellitus with diabetic peripheral angiopathy without gangrene; D63.8 Anemia in other chronic diseases classified elsewhere; E53.8 Deficiency of other specified B group vitamins; B95.62 Methicillin resistant Staphylococcus aureus infection as the cause of diseases classified elsewhere; Z90.49 Acquired absence of other specified parts of digestive tract; Z95.810 Presence of automatic (implantable) cardiac defibrillator; Z89.421 Acquired absence of other right toe(s); Z79.899 Other long term (current) drug therapy; Z88.2 Allergy status to sulfonamides; Z88.0 Allergy status to penicillin; Z88.1 Allergy status to other antibiotic agents; Z88.6 Allergy status to analgesic agent; Z91.018 Allergy to other foods; Y93.89 Activity, other specified; Y92.89 Other specified places as the place of occurrence of the external cause; Y99.8 Other external cause status; Z88.8 Allergy status to other drugs, medicaments and biological substances; Z79.51 Long term (current) use of inhaled steroids; Z68.27 Body mass index [BMI] 27.0-27.9, adult

== ENCOUNTER 2019-01-02 16:08 | Inpatient (IN) | payer OTHER ==
[~2019-01-02] VITALS: Ht 180.3 cm; Wt 59.0 kg
[~2019-01-02 16:08] MED LIST changes: +AZTREONAM1 GM IVPB; +VANCOMYCIN IVPB
[2019-01-02 16:14] VITALS: BP 154/99
[2019-01-02 16:50] LABS: ABSOLUTE BASOPHILS 0.1 thou/uL (0.0-0.2); ABSOLUTE EOSINOPHILS 0.2 thou/uL (0.0-0.7); ABSOLUTE LYMPHOCYTES 2.1 thou/uL (0.8-5.3); ABSOLUTE MONOCYTES 0.5 thou/uL (0.0-1.2); BASOPHILS 0.9 %; EOSINOPHILS 2.4 %; HEMATOCRIT 37.6 % (37.0-47.0); HEMOGLOBIN 12.1 gm/dL (12.0-15.0); LYMPHOCYTES 26.8 %; MCH 28.8 pg (26.0-34.0); MCHC 32.2 g/dL (28.0-37.0); MCV 89.6 fL (80.0-100.0); MONOCYTES 6.1 %; MPV 11.3 fl. (7.2-11.1); NUCLEATED RBCS 0 /100WBC; PLATELET COUNT* 188 thou/uL (150-400); POLYS 63.8 %; RBC 4.19 mil/uL (4.20-5.00); RDW-CV 16.4 % (10.5-14.5); WBC 7.8 thou/uL (4.0-11.0)
[2019-01-02 16:58] LABS: CALCIUM 8.4 mg/dL (8.5-10.1); CREATININE 1.5 mg/dL (0.6-1.3); POTASSIUM 4.7 mmol/L (3.5-5.1)
[2019-01-02 17:08] LABS: ALBUMIN 2.9 g/dL (3.4-5.0); TOTAL BILIRUBIN 0.5 mg/dL (<0.1-1.0); TOTAL PROTEIN 6.6 g/dL (6.4-8.2)
[2019-01-02 18:50] VITALS: BP 142/96
[2019-01-02 19:45] VITALS: BP 144/75
[2019-01-03] VITALS: BP 133/82
--- NOTE | 2019-01-03 02:23 | NUR ---
PT ALERT ORIENTED. SUN'AQ NO HEARING AIDS. UP TO BSC WITH STD BY ASSIST AND WALKER. LOWER EXTREMITY EDEMA +3. FAM FEET WRAPS WITH ORTHO SHOES. PT SEEING DR YOUSSEF FOR WOUND CARE. PT REFUSED TO LET NURSE UNWRAP AND PICTURE FEET. PT STATED THERE ARE SKIN GRAFTS AND DR YOUSSEF TOLD HER NOT TO LET ANYONE TOUCH HER DRSINGS. PT STATED DR YOUSSEF TOLD HER SHE WOULD BE HERE THE FOLLOWING DAY TO DO DRSGS. ORDER FOR WOUND CONSULT WITH DR YOUSSEF. NPO FOR CARDIOLOGY CONSULT. TELEMETRY SHOWS SR 1ST DEGREE AVB. PM RA. O2 SAT 99% AT REST. PT SOB WITH EXERTION. PT IN ISOLATION FOR BEING FLAGGED FOR CDIF IN ADMISSION AND HX OF MRSA NONRESPIRATORY. WCTM
--- NOTE | 2019-01-03 03:50 | NUR ---
PT HS BLOOD GLUCOSE 166. PT REFUSEDS HS INSULINS. PT SAID SHE HAD NOT EATEN ALL DAY. FOOD OFFERED PT REFUSED STATING SHE WAS NOT HUNGRY.
[2019-01-03 04:00] VITALS: BP 129/89
[2019-01-03 05:06] LABS: CALCIUM 8.8 mg/dL (8.5-10.1); CREATININE 1.4 mg/dL (0.6-1.3); MAGNESIUM 2.1 mg/dL (1.8-2.4); POTASSIUM 4.3 mmol/L (3.5-5.1)
[2019-01-03 07:00] VITALS: BP 125/81
--- NOTE | 2019-01-03 08:46 | NUR ---
WOUND NURSE: PATIENT SEEN THIS AM TO ADDRESS BILATERAL FOOT WOUNDS. PATIENT HAS INTACT DRESSINGS ON BOTH FEET. HAS 2 TO 3 + PITTING EDEMA IN BLE. ENCOURAGED TO KEEP LEGS ELEVATED ABOVE HEART TOLERATED. SPOKE WITH STAFF NURSE, ALYSON WHO REPORTS DR. TAMARA VILLEGAS DPM WAS IN TO SEE PATIENT AT 0730 THIS AM. ALYSON AND THE PATIENT BOTH REPORT THAT DRESSINS ARE NOT TO BE REMOVED BY NURSING, AND THAT SHE WILL CHANGE THE DRESSINGS HERSELF TOMORROW. DRESSINGS NOT DISTURBED A RESULT.
--- NOTE | 2019-01-03 09:32 | EKG ---
[place] [address] ELECTROCARDIOGRAM REPORT Name: ESTHER MIX Room: [address] ADM IN [facility].#: [id number] Admission: 01/02/19 Attend Phys: Tae Renee MD Discharge: Date of : 46 Report #: [id number] THIS REPORT FOR: //name// [facility] ED Test Date: 2019-01-02 Test Time: 16:16:34 Pat Name: ESTHER MIX Department: Room: [facility] Gender: F Case Planner: : 1950 Requested By: Gustavo Carpio Order Number: [id number] MD: Josemanuel Hernandes Measurements Intervals [place] Rate: 87 P: 80 UT: 200 QRS: 9 QRSD: 100 T: 52 QT: 438 QTc: 527 Interpretive Statements Sinus rhythm Low voltage, extremity leads Prolonged QT interval Compared to ECG 12/13/2018 12:01:51 Myocardial infarct finding no longer present Electronically Signed On 01-03-2019 9:31:56 PILOT BOAT DECKHAND by Josemanuel Hernandes [email or web address] <ELECTRONICALLY SIGNED> By: Josemanuel Hernandes MD, FACC 01/03/19 0931 1616 1616 Josemanuel Hernandes MD, FACC /EPI
--- NOTE | 2019-01-03 09:45 | NUR ---
INITAL ASSESSMENT COMPLETED CHARTED. VSS. TRACING SR WITH 1ST DEGREE BLOCK ON MONITOR. PT DENIES PAIN AT THIS TIME. NO NEW CONCERNS AT THIS TIME. HOURLY ROUNDING AND FALL PRECAUTIONS IN PLACE. CLWR.
--- NOTE | 2019-01-03 10:37 | NUR ---
Nutrition: Pt admitted with chest pain. Osteomyelitis of toe. CHO controlled diet. RD has seen pt before. Pt doesn't eat a lot of solid food. RD will order Glucerna TID for added po intake. On insulin, MVI, B12, lasix. Edema in BLE. H/o DM, CHF, HTN. Usual wt is ~196#. Please reweigh pt for accuracy b/c wt recorded as 130# single wt today. Physician indicated severe PCM - defer DX. Consider Mild risk at [facility] st[facility]. Will follow po intake, wt, labs, 01/09/19.
[2019-01-03 10:56] VITALS: BP 129/87
--- NOTE | 2019-01-03 13:14 | NUR ---
Pt is A&O. Resides at home with her and extended family. Recent dc earlier this month with IVABX and [facility]. Pt has a walker at home. Plan return home at dc, with HH. Following.
--- NOTE | 2019-01-03 14:43 | 2DMMODE ---
[place] [address] 2 D/M-MODE ECHOCARDIOGRAM Name: ESTHER MIX Room: [address] IN [facility]#: [id number] Admission: 01/02/19 Attend Phys: Tae Renee, Discharge: Date of : 46 Date of Service: 01/03/19 1443 Report #: [id number] THIS REPORT FOR: //name// APPROVED REPORT Study performed: 01/03/2019 11:38:53 EXAM: Comprehensive 2D, Doppler, and color-flow Echocardiogram Patient Location: In-Patient Room #: [facility] Status: routine BSA: 2.06 HR: 80 bpm BP: 125/81 mmHg Rhythm: NSR Other Information Study Quality: Good Indications Congestive Heart Failure Dyspnea Elevated Troponin Chest Pain 2D Dimensions IVSd: 10.43 (7-11mm) LVOT Diam: 19.52 (18-24mm) LVDd: 53.77 mm PWd: 9.55 (7-11mm) Ascending Ao: 31.84 (22-36mm) LVDs: 50.61 (25-40mm) Aortic Root: 33.54 mm Volumes Left Atrial Volume (Systole) LA ESV Index: 46.40 mL/m2 Aortic Valve AoV Peak Seamus.: 0.85 m/s AO Peak Gr.: 2.87 mmHg LVOT Max P.25 mmHg AO Mean Gr.: 1.33 mmHg LVOT Mean P.55 mmHg LVOT Max V: 0.56 m/s AO V2 VTI: 10.92 cm LVOT Mean V: 0.33 m/s CODY (VTI): 2.25 cm2 LVOT V1 VTI: 8.23 [place] [address] 2 D/M-MODE ECHOCARDIOGRAM Name: MARIA DEL ROSARIOESTHER BALWINDER Room: [address] IN .R.#: [id number] Admission: 01/02/19 Attend Phys: Tae Renee, Discharge: Date of : 46 Date of Service: 01/03/19 1443 Report #: [id number] E/A Ratio: 2.19 MV Decel. Time: 111.88 ms MV E Max Seamus.: 1.16 m/s MV PHT: 32.45 ms MVA (PHT): 6.78 cm2 TDI E/Lateral E': 16.57 E/Medial E': 23.20 Medial E' Seamus.: 0.05 m/s Lateral E' Seamus.: 0.07 m/s Pulmonary Valve PV Peak Seamus.: 0.62 m/s PV Peak Gr.: 1.55 mmHg Tricuspid Valve RAP Estimate: 10.00 mmHg TR Peak Gr.: 35.63 mmHg RVSP: 45.00 mmHg PA Pressure: 45.00 mmHg Left Ventricle Left ventricle is moderately dilated. There is severe global hypokinesis of the left ventricle. There is normal left ventricular wall thickness. Left ventricular systolic function is severely decreased. LVEF is 20-25%. Grade IV - fixed restrictive diastolic dysfunction. Right Ventricle The right ventricle is normal size. The right ventricular systolic function is normal. Pacemaker lead is present in the right ventricle. Atria Left atrium is moderately dilated. Right atrium is mildly dilated. Aortic Valve The aortic valve is normal in structure. No aortic regurgitation is present. There is no aortic valvular stenosis. Mitral Valve The mitral valve is normal in structure. Mild to moderate mitral regurgitation. No evidence of mitral valve stenosis. Tricuspid Valve The tricuspid valve is normal in structure. Mild tricuspid regurgitation. [place] [address] 2 D/M-MODE ECHOCARDIOGRAM Name: ESTHER MIX Room: [address]#: [id number] Admission: 01/02/19 Attend Phys: Tae Renee, Discharge: Date of : 46 Date of Service: 01/03/19 1443 Report #: [id number] Pulmonic Valve The pulmonary valve is normal in structure. Mild pulmonic regurgitation. Great Vessels The aortic root is normal in size. IVC is dilated and collapses >50% with inspiration. Pericardium There is no pericardial effusion. <Conclusion> Left ventricle is moderately dilated. There is normal left ventricular wall thickness. Left ventricular systolic function is severely decreased. LVEF is 20-25%. The right ventricle is normal size. Left atrium is moderately dilated. Right atrium is mildly dilated. The aortic valve is normal in structure. The mitral valve is normal in structure. Mild to moderate mitral regurgitation. The tricuspid valve is normal in structure. Mild tricuspid regurgitation. Moderate pulmonary hypertension. IVC is dilated and collapses >50% with inspiration. There is no pericardial effusion. There is severe global hypokinesis of the left ventricle. Pacemaker lead is present in the right ventricle. <ELECTRONICALLY SIGNED> By: Aung Campoverde MD, FACC 01/03/19 1443 1443 1443 Aung Campoverde MD, FACC /INF
--- NOTE | 2019-01-03 14:59 | NUR ---
UPON ENTERING PT ROOM AT [facility] 1310 IT WAS DISCOVERED THAT PT HAD LEFT SIDE INEXTINCTION, LEFT SIDE WAS FLACCID WITH LEFT SIDE FACIAL DROOP AND SLURRED SPEECH. LAST KNOWN OK WAS 1245. BOLIVAR GARCIA CALLED, PT TAKEN TO CT. CT SHOWS POSSIBLE INFARCT PER PHYSICIAN, NEUROLOGY CONSULTED STAT, NEW ORDERS RECEIVED FOR STAT MRI/MRA OF HAED AND NECK. PT CURRENTLY IN MRI.
[2019-01-03 16:04] VITALS: BP 129/84
[2019-01-03 19:50] VITALS: BP 121/75
[2019-01-04] VITALS (7 sets, daily range): BP systolic 106–146; BP diastolic 57–91
[2019-01-04 04:52] LABS: CALCIUM 8.8 mg/dL (8.5-10.1); CREATININE 1.5 mg/dL (0.6-1.3); POTASSIUM 3.7 mmol/L (3.5-5.1)
--- NOTE | 2019-01-04 06:08 | NUR ---
PT CARE ASSUMED AT 1930. SOB WITH EXERTION, O2 CONNECTED ON 2L VIA NC FOR PT'S COMFORT. ALERT AND ORIENTED X4. CALL LIGHT WITHIN REACH AND BED IN LOW POSITION. DENIES PAIN. HOURLY ROUNDING DONE FOR PT SAFETY.
--- NOTE | 2019-01-04 08:03 | CON ---
[facility] [address] [place] [address] CONSULTATION Name: ESTHER MIX Room: [address] IN .R.#: [id number] Admission: 01/02/19 Attend Phys: Tae Renee MD Discharge: Date of : 46 Report #: [id number] THIS REPORT FOR: //name// CC: Tae ZAVALA DO Katlyn Zavala INDICATION: Acute on chronic heart failure. HISTORY OF PRESENT ILLNESS: The patient is a 68-year-old white female with known nonischemic cardiomyopathy. Her last echo lists her LV systolic function as being moderately decreased. Her last office visit was six months ago at which time she was having class 1-2 heart failure symptoms. The patient was admitted to the hospital yesterday with increasing lower extremity edema as well as some problems with nonhealing wounds on her feet. The patient states her swelling has been increasing over the last month. She does have orthopnea, but no shortness of breath at rest. She denies chest pain. She has been taking her typical regimen at home which is 20 mg of oral Lasix daily. PAST MEDICAL HISTORY: 1. Nonischemic cardiomyopathy. 2. Type 2 diabetes mellitus. 3. Hypertension. 4. Stage 3 chronic renal insufficiency. 5. ICD in place for primary prevention. 6. Paroxysmal atrial fibrillation. PAST SURGICAL HISTORY: 1. Defibrillator placed in 2017. 2. Back surgery remotely. 3. Cholecystectomy remotely. 4. D and C remotely. 5. Sinus surgery remotely. FAMILY HISTORY: The patient's mother had coronary artery disease with myocardial infarction, diabetes and hypertension. The patient's father had heart disease and diabetes as well. SOCIAL HISTORY: The patient is a lifelong nonsmoker. She does not drink alcohol. ALLERGIES: CEFAZOLIN, CEPHALEXIN, CIPROFLOXACIN, CODEINE, DOXYCYCLINE, LIDOCAINE, MINOCYCLINE, MORPHINE, OXYCODONE, PENICILLIN G, SULFA ANTIBIOTICS AND ZYVOX. CURRENT HOME MEDICATIONS: DuoNeb inhaler q.6h. p.r.n., Lipitor 40 mg at bedtime, aztreonam 1 g IV b.i.d., bupropion XL 150 mg daily, carvedilol 3.125 [place] [address] CONSULTATION Name: ESTHER MIX Room: [address]#: [id number] Admission: 01/02/19 Attend Phys: Tae Renee MD Discharge: Date of : 46 Report #: [id number] b.i.d., vitamin D 2000 units b.i.d., vitamin B12 500 mcg 2 tablets p.o. daily, Bentyl 10 mg p.o. q.i.d., Nexium 40 mg p.o. daily, iron sulfate 325 mg daily, Flonase nasal spray 2 sprays daily, Lasix 40 mg p.o. daily, Cortef 5 mg p.o. at night, Lantus insulin 40 units subQ at bedtime, lispro insulin q.a.c. and at bedtime per sliding scale, Synthroid 50 mcg daily, Ativan 0.5 mg q.8h. p.r.n., multivitamin 1 tablet daily, potassium 20 mEq b.i.d., Xarelto 15 mg at dinner, vancomycin 500 mg IV b.i.d. PHYSICAL EXAMINATION: VITAL SIGNS: Blood pressure 129/87, pulse 74. GENERAL: This is a pleasant lady in no distress. Mood and affect appropriate. HEENT: Extraocular muscles intact. Mucous membranes are moist. NECK: Shows no jugular venous distention. I do not appreciate carotid bruit. CHEST: Reveals clear lung hennessy. CARDIOVASCULAR: Reveals a regular rhythm with normal S1 and S2. I do not appreciate gallop or murmur. ABDOMEN: Reveals normal bowel sounds. EXTREMITIES: Shows 2+ edema of the left lower extremity to the knee, 3+ edema of the right lower extremity to the knee. The right lower foot is wrapped. SKIN: Dry. LABORATORY DATA: A 12-lead EKG shows sinus rhythm without acute ST or T-wave abnormality. IMPRESSION AND RECOMMENDATIONS: 1. Acute on chronic systolic heart failure. We will continue IV Lasix as already ordered. Follow daily labs. At this point, her blood pressure appears to be adequate enough to tolerate titration of her heart failure medications. We will increase carvedilol and try low-dose losartan. We will need to follow renal function closely. 2. Hypertension, adequately controlled on current cardiac regimen. 3. Dyslipidemia. Continue current statin agent. 4. Chronic renal insufficiency, presently stable. Follow labs closely. 5. Status post ICD placement for primary prevention. Normal function by remote studies. 6. History of paroxysmal atrial fibrillation, presently maintaining sinus rhythm. She is chronically anticoagulated and having no bleeding problems. <ELECTRONICALLY SIGNED> By: Josemanuel Hernandes MD, FACC 01/04/19802 19 19Miclashaun Hernandes MD, FACC /nt
--- NOTE | 2019-01-04 15:16 | NUR ---
MET WITH THE PATIENT TO DISCUSS HEART FAILURE MEDICATION. DISCUSSION FOCUSED PRIMARILY ON CARVEDILOL, FUROSEMIDE AND LOSARTAN. WE REVIEWED RATIONALE FOR THERAPY AND IMPORTANCE OF COMPLIANCE WITH PRESCRIBED REGIMEN. WE DISCUSSED POSSIBLE SIDE EFFFECTS AND POTENTIAL MANAGEMENT STRATEGIES. PT EXPRESSED UNDERSTANDING OF ISSUES DISCUSSED. LEFT MEDICATION INFORMATION SHEET WITH PT. PROVIDED PHARMACY CONTACT INFORMATION FOR ANY FURTHER QUESTIONS OR ISSUES. THANK YOU.
[2019-01-05] VITALS: BP 115/70
[2019-01-05 04:00] VITALS: BP 120/77
[2019-01-05 04:48] LABS: CALCIUM 9.4 mg/dL (8.5-10.1); CREATININE 1.6 mg/dL (0.6-1.3); MAGNESIUM 2.2 mg/dL (1.8-2.4); POTASSIUM 4.3 mmol/L (3.5-5.1)
[2019-01-05 07:00] VITALS: BP 108/58
--- NOTE | 2019-01-05 07:39 | NUR ---
PT CARE ASSUMED AT 1930. SAT MAINTAINED IN O2. ALERT AND ORIENTED X4. DENIES PAIN. SOB WITH EXERTION. CALL LIGHT WITHIN REACH AND BED IN LOW POSITION. HOURLY ROUNDING DONE FOR PT SAFETY.
--- NOTE | 2019-01-05 08:08 | NUR ---
INITAL ASSESSMENT COMPLETED CHARTED. VSS. TRACING SR WITH 1ST DEGREE BLOCK ON MONITOR. PT DENIES PAIN, CP,N/V/D. PT CONTINUES ON 2LPM VIA NC FOR COMFORT. NO OTHER CONCERNS AT THIS TIME. HOURLY ROUNDING AND FALL PRECAUTIONS IN PLACE FOR PT SAFETY. CLWR.
[2019-01-05] MEDS ORDERED: COZAAR 50 MG TA50 M1 PO (09:27)
[2019-01-05] MEDS ORDERED: COREG6.25 MG PO (09:27)
[2019-01-05] MEDS ORDERED: LASIX 40 MG TAB40 M1 PO (09:27)
--- NOTE | 2019-01-05 11:50 | NUR ---
CM spoke with LINETTE Castillo at [facility], regarding Drs concerns about HH not following for heart failure. Per LINETTE, when nurse saw Pt on Wednesday, noted edemedous legs, but no other signs of HF. Pt was to see Dr Cadena that afternoon, nurse contact Dr Cadena's office and noted concerns. Pt went to appt and was sent to the ER. Per Pt, she wants to continue with [facility]. Faxed dc orders and clinical info. Pt to dc to home today with [facility]
[2019-01-05 12:04] VITALS: BP 110/60
== END 2019-01-05 12:55 | disposition home health service (06) | DRG 291 ==
LOC: M.ERS 16:08 → M.TBA-ER 17:44 → M.2W 17:44
PROVIDERS: Emergency Medicine Emergency Medical Services; Internal Medicine Cardiovascular Disease; ADMIT Internal Medicine
PROC: 02HV33Z Insertion of Infusion Device into Superior Vena Cava, Percutaneous Approach (ICD-10-PCS; principal; 2019-01-02)
DX: I13.0 Hypertensive heart and chronic kidney disease with heart failure and stage 1 through stage 4 chronic kidney disease, or unspecified chronic kidney disease (principal); I50.43 Acute on chronic combined systolic (congestive) and diastolic (congestive) heart failure; E43 Unspecified severe protein-calorie malnutrition; M86.8X7 Other osteomyelitis, ankle and foot; N18.4 Chronic kidney disease, stage 4 (severe); I42.8 Other cardiomyopathies; I25.10 Atherosclerotic heart disease of native coronary artery without angina pectoris; E03.9 Hypothyroidism, unspecified; E11.40 Type 2 diabetes mellitus with diabetic neuropathy, unspecified; I48.0 Paroxysmal atrial fibrillation; E78.5 Hyperlipidemia, unspecified; E11.69 Type 2 diabetes mellitus with other specified complication; E11.51 Type 2 diabetes mellitus with diabetic peripheral angiopathy without gangrene; E53.8 Deficiency of other specified B group vitamins; D63.8 Anemia in other chronic diseases classified elsewhere; B95.62 Methicillin resistant Staphylococcus aureus infection as the cause of diseases classified elsewhere; B96.5 Pseudomonas (aeruginosa) (mallei) (pseudomallei) as the cause of diseases classified elsewhere; E61.1 Iron deficiency; L03.031 Cellulitis of right toe; R94.31 Abnormal electrocardiogram [ECG] [EKG]; E11.22 Type 2 diabetes mellitus with diabetic chronic kidney disease; E11.622 Type 2 diabetes mellitus with other skin ulcer; Z79.4 Long term (current) use of insulin; Z90.49 Acquired absence of other specified parts of digestive tract; Z88.6 Allergy status to analgesic agent; Z88.1 Allergy status to other antibiotic agents; Z88.0 Allergy status to penicillin; Z88.2 Allergy status to sulfonamides; Z88.8 Allergy status to other drugs, medicaments and biological substances; Z82.49 Family history of ischemic heart disease and other diseases of the circulatory system; Z83.3 Family history of diabetes mellitus; Z98.41 Cataract extraction status, right eye

== ENCOUNTER 2019-02-23 14:05 | Inpatient (IN) | payer OTHER ==
[~2019-02-23] VITALS: Ht 177.8 cm; Wt 79.6 kg
[~2019-02-23 14:05] MED LIST changes: +COREG6.25 MG PO; +COZAAR 50 MG TA50 M1 PO; +LASIX 40 MG TAB40 M1 PO; +VANCO 750750 MG/250 IV; -VANCOMYCIN IVPB
[2019-02-23 14:19] VITALS: BP 129/72
[2019-02-23 15:19] LABS: WBC 24.1 thou/uL (4.0-11.0)
[2019-02-23 15:21] LABS: HEMOGLOBIN 11.8 gm/dL (12.0-15.0); MCH 28.7 pg (26.0-34.0); MCHC 32.9 g/dL (28.0-37.0); MCV 87.3 fL (80.0-100.0); MPV 11.2 fl. (7.2-11.1); NUCLEATED RBCS 0 /100WBC; PLATELET COUNT* 186 thou/uL (150-400); RBC 4.13 mil/uL (4.20-5.00); RDW-CV 15.6 % (10.5-14.5)
[2019-02-23 15:28] LABS: CALCIUM 8.3 mg/dL (8.5-10.1); CREATININE 1.9 mg/dL (0.6-1.3)
[2019-02-23 15:32] LABS: ALBUMIN 2.6 g/dL (3.4-5.0); TOTAL BILIRUBIN 0.7 mg/dL (<0.1-1.0); TOTAL PROTEIN 6.6 g/dL (6.4-8.2)
[2019-02-23 15:47] LABS: ABSOLUTE LYMPHOCYTES 0.7 thou/uL (0.8-5.3); ABSOLUTE MONOCYTES 0.5 thou/uL (0.0-1.2); ABSOLUTE NEUTROPHILS 22.9 thou/uL (1.6-8.1); PLATELET ESTIMATE ADEQUATE
[2019-02-23 15:48] LABS: HYPOCHROMASIA 1+
[2019-02-23 18:36] VITALS: BP 102/50
[2019-02-23 19:00] VITALS: BP 115/45
[2019-02-23 21:00] VITALS: BP 125/58
[2019-02-24 04:22] LABS: ABSOLUTE BASOPHILS 0.1 thou/uL (0.0-0.2); ABSOLUTE LYMPHOCYTES 1.5 thou/uL (0.8-5.3); ABSOLUTE MONOCYTES 0.6 thou/uL (0.0-1.2); ABSOLUTE NEUTROPHILS 16.4 thou/uL (1.6-8.1); BASOPHILS 0.3 %; HEMATOCRIT 30.9 % (37.0-47.0); HEMOGLOBIN 10.3 gm/dL (12.0-15.0); LYMPHOCYTES 7.9 %; MCH 29.3 pg (26.0-34.0); MCHC 33.4 g/dL (28.0-37.0); MCV 87.6 fL (80.0-100.0); MPV 10.6 fl. (7.2-11.1); NUCLEATED RBCS 0 /100WBC; PLATELET COUNT* 141 thou/uL (150-400); POLYS 88.8 %; RBC 3.53 mil/uL (4.20-5.00); RDW-CV 15.2 % (10.5-14.5); WBC 18.5 thou/uL (4.0-11.0)
[2019-02-24 04:48] LABS: CALCIUM 7.3 mg/dL (8.5-10.1); CREATININE 1.8 mg/dL (0.6-1.3); POTASSIUM 3.9 mmol/L (3.5-5.1); TOTAL BILIRUBIN 0.3 mg/dL (<0.1-1.0); TOTAL PROTEIN 5.4 g/dL (6.4-8.2)
[2019-02-24 08:05] VITALS: BP 89/49
[2019-02-24 12:17] LABS: URINE BILIRUBIN NEGATIVE (Negative); URINE BLOOD TRACE (Negative); URINE CLARITY CLOUDY; URINE COLOR YELLOW; URINE GLUCOSE-RANDOM TRACE (Negative); URINE KETONES NEGATIVE (Negative); URINE LEUKOCYTES 1+ (Negative); URINE NITRITE NEGATIVE (Negative); URINE PROTEIN TRACE (Negative); URINE UROBILINOGEN 0.2 E.U./dl (0.2-1.0)
[2019-02-24 12:22] LABS: SQUAMOUS >10 Many /LPF (0-3)
[2019-02-24 12:24] LABS: BACTERIA >30 Many /HPF (None Seen); CASTS None Seen /LPF (None Seen); CRYSTALS None Seen /LPF (None Seen); MUCUS 0-3 Light strn/LPF (None Seen); URINE RBC 0-2 Rare /HPF (0-2); URINE WBC 6-15 Few /HPF (0-5); YEAST Present (None Seen)
[2019-02-24 15:46] VITALS: BP 85/42
[2019-02-24 20:00] VITALS: BP 84/54
[2019-02-25 08:10] VITALS: BP 91/49
[2019-02-25 13:21] LABS: ABSOLUTE EOSINOPHILS 0.1 thou/uL (0.0-0.7); ABSOLUTE LYMPHOCYTES 1.3 thou/uL (0.8-5.3); ABSOLUTE MONOCYTES 0.4 thou/uL (0.0-1.2); ABSOLUTE NEUTROPHILS 6.4 thou/uL (1.6-8.1); BASOPHILS 0.6 %; EOSINOPHILS 1.3 %; HEMOGLOBIN 10.4 gm/dL (12.0-15.0); LYMPHOCYTES 15.5 %; MCH 29.4 pg (26.0-34.0); MCHC 33.6 g/dL (28.0-37.0); MCV 87.6 fL (80.0-100.0); MPV 10.4 fl. (7.2-11.1); NUCLEATED RBCS 0 /100WBC; PLATELET COUNT* 122 thou/uL (150-400); POLYS 77.6 %; RBC 3.54 mil/uL (4.20-5.00); RDW-CV 15.9 % (10.5-14.5); WBC 8.2 thou/uL (4.0-11.0)
[2019-02-25 13:40] LABS: ALBUMIN 1.9 g/dL (3.4-5.0); CALCIUM 7.6 mg/dL (8.5-10.1); CREATININE 1.9 mg/dL (0.6-1.3); MAGNESIUM 1.8 mg/dL (1.8-2.4); PHOSPHORUS* 2.9 mg/dL (2.5-4.9); POTASSIUM 4.5 mmol/L (3.5-5.1); TOTAL BILIRUBIN 0.4 mg/dL (<0.1-1.0); TOTAL PROTEIN 5.2 g/dL (6.4-8.2)
[2019-02-25 20:00] VITALS: BP 101/44
[2019-02-26 08:15] VITALS: BP 107/45
[2019-02-26 12:55] LABS: ABSOLUTE BASOPHILS 0.1 thou/uL (0.0-0.2); ABSOLUTE EOSINOPHILS 0.1 thou/uL (0.0-0.7); ABSOLUTE LYMPHOCYTES 1.3 thou/uL (0.8-5.3); ABSOLUTE MONOCYTES 0.4 thou/uL (0.0-1.2); ABSOLUTE NEUTROPHILS 4.6 thou/uL (1.6-8.1); BASOPHILS 1.2 %; EOSINOPHILS 2.3 %; HEMATOCRIT 31.6 % (37.0-47.0); HEMOGLOBIN 10.5 gm/dL (12.0-15.0); LYMPHOCYTES 19.3 %; MCH 29.5 pg (26.0-34.0); MCHC 33.4 g/dL (28.0-37.0); MCV 88.3 fL (80.0-100.0); MONOCYTES 6.1 %; MPV 11.8 fl. (7.2-11.1); NUCLEATED RBCS 0 /100WBC; PLATELET COUNT* 122 thou/uL (150-400); POLYS 71.1 %; RBC 3.58 mil/uL (4.20-5.00); RDW-CV 16.2 % (10.5-14.5); WBC 6.5 thou/uL (4.0-11.0)
[2019-02-26 13:05] LABS: ALBUMIN 1.9 g/dL (3.4-5.0); CALCIUM 7.8 mg/dL (8.5-10.1); CREATININE 1.9 mg/dL (0.6-1.3); POTASSIUM 4.2 mmol/L (3.5-5.1); TOTAL BILIRUBIN 0.3 mg/dL (<0.1-1.0); TOTAL PROTEIN 5.4 g/dL (6.4-8.2)
[2019-02-26 16:00] VITALS: BP 112/63
[2019-02-26 22:24] VITALS: BP 110/56
--- NOTE | 2019-02-27 07:36 | CON ---
[address] [address] CONSULTATION Name: GERIJUANISCYRUSESTHER BRITT Room: [address] IN M.R.#: [id number] Admission: 02/23/19 Attend Phys: Charlie Oliva Discharge: Date of : 46 Report #: [id number] THIS REPORT FOR: //name// CC: Katlyn Davis DATE OF SERVICE: 02/24/2019 INFECTIOUS DISEASE CONSULTATION ATTENDING PHYSICIAN: Dung Davis DO REASON FOR EVALUATION: Gram-positive septicemia. HISTORY OF PRESENT ILLNESS: Chart reviewed, patient examined. This is a 68-year-old woman well known to myself, has extensive medical history primarily related to diabetes mellitus complicated by diffuse vasculopathy, has had longstanding lower extremity wounds. She has had multiple infectious complications in the last several years, most recently been following up for wounds and osteomyelitis post surgery had been followed by Dr. Verena Cadena who saw her earlier this week actually showed me pictures of the improvements of the wounds; however, over the course of the last 2-3 days prior to her admission, had developed severe bilateral leg pain, difficult to associate this necessarily with isolated wound infection, may have a degree of claudication. She presented to the Emergency Room in extreme pain. Denies any recent fevers, although had low-grade temperature elevations while here overnight. Does admit to some difficulty breathing, cough is nonproductive. Appetite has been somewhat diminished as well. As part of the evaluation, blood cultures were collected, now / with growth of gram-positive cocci, empirically started on therapy with vancomycin, aztreonam, did receive a dose of azithromycin as well. Historically in 11/2018 and isolation of MRSA, which has been a pattern from her as well as pseudomonas. At this point, she is mildly encephalopathic. She is in gahdwnbu-bt-xsguwr distress. ALLERGIES: LISTED TO OXYCODONE, CIPRO, CEPHALEXIN, PENICILLIN, SULFA, QUINOLONES, LIDOCAINE, MORPHINE, CODEINE. CURRENT MEDICATIONS: Include aztreonam, furosemide, losartan, levothyroxine, p.r.n. analgesics, antiemetics, atorvastatin, carvedilol, tramadol, and vancomycin. PAST MEDICAL HISTORY: As described above, diabetes mellitus type 2, insulin requiring, complicated by diffuse vasculopathy, has sequelae of end-stage renal disease; history of cardiomyopathy; history of congestive heart failure; cardiac dysrhythmias with implantable defibrillator in the past; history of hypothyroidism; mitral regurg; previous toe [place]put[place] [address] CONSULTATION Name: ESTHER MIX Room: [address] IN [facility].#: [id number] Admission: 02/23/19 Attend Phys: Charlie Oliva Discharge: Date of : 46 Report #: [id number] SOCIAL HISTORY: Nonsmoker, no ethanol, no illicit drug use. FAMILY HISTORY: Noncontributory. REVIEW OF SYSTEMS: As above, otherwise unremarkable. Some diminished ability to clarify due to difficulty. PHYSICAL EXAMINATION: GENERAL: She is in iobiwxyl-et-wcupdq distress, I believe combination of pain as well as respiratory difficulties. She appears chronically ill, undernourished. She is mildly encephalopathic. VITAL SIGNS: T-max 100.4, more recently 98.9; pulse 77; respirations 20; blood pressure 89/49. SKIN: Warm, dry, no rashes. HEENT: Normocephalic. Extraocular muscles intact. NECK: Supple. LUNGS: Scattered coarse breath sounds. HEART: Regular, has a murmur. Occasional ectopy. ABDOMEN: Mildly distended, soft, nontender. There are no peritoneal signs. EXTREMITIES: Bilateral lower extremities were evaluated. Wounds themselves actually improved since I have seen her last, has some bnff-za-didjdegs degree of inflammation noted. RECTAL: Deferred. LABORATORY DATA: Initial electrolytes, sodium 133, potassium 4.0, chloride 102, bicarbonate is 20, anion gap of 11, BUN and creatinine 28 and 1.9, glucose of 345. Albumin of 2.6. Total protein of 6.6. Estimated GFR of 26. Liver functions unremarkable. Lactic acid of initially 2.9, repeat was 1.9. CBC: White count of 24.1, H and H 11.8 and 36.0, platelets of 186. X-ray, postoperative changes, right foot without obvious bony erosion, left foot, no acute abnormality. Chest x-ray: Trace right pleural effusion versus chronic pleural thickening. Blood cultures 2/2 with gram-positive cocci. Prealbumin of 12.1. ASSESSMENT AND PLAN: Gram-positive septicemia. I think the most likely etiology is skin probably related to the wounds of the feet, given the increased pain, although they do not look significantly deteriorated since last I saw them. We will continue combination therapy including the vancomycin, new cultures of the wound. We will monitor expectantly. Consider other sources. We will check pneumococcal antigen. MRSA surveillance is likely to be positive. She remains quite tenuous. <ELECTRONICALLY SIGNED> By: Jonathan Perez MD 02/27/19 0736 [id number] Perez MD /nt
[2019-02-27 08:45] VITALS: BP 123/70
[2019-02-27 15:29] VITALS: BP 95/40
[2019-02-27 17:48] VITALS: BP 104/46
[2019-02-28 06:59] LABS: ALBUMIN 2.1 g/dL (3.4-5.0); CALCIUM 8.2 mg/dL (8.5-10.1); CREATININE 1.3 mg/dL (0.6-1.3); POTASSIUM 3.7 mmol/L (3.5-5.1); TOTAL BILIRUBIN 0.4 mg/dL (<0.1-1.0); TOTAL PROTEIN 5.9 g/dL (6.4-8.2)
[2019-02-28 08:00] VITALS: BP 86/56
[2019-02-28 16:00] VITALS: BP 162/69
--- NOTE | 2019-02-28 16:04 | 2DMMODE ---
[place] [address] 2 D/M-MODE ECHOCARDIOGRAM Name: ESTHER MIX Room: [address] ADM IN [facility]#: [id number] Admission: 02/23/19 Attend Phys: Dung Davis Discharge: Date of : 46 Date of Service: 02/28/19 1603 Report #: [id number] THIS REPORT FOR: //name// APPROVED REPORT Study performed: 02/28/2019 13:51:09 EXAM: Comprehensive 2D, Doppler, and color-flow Echocardiogram Patient Location: In-Patient Room #: [facility] Status: routine BSA: 1.99 HR: 55 bpm BP: 86/56 mmHg Rhythm: NSR Other Information Study Quality: Good Indications Sepsis 2D Dimensions IVSd: 10.64 (7-11mm) LVOT Diam: 20.39 (18-24mm) LVDd: 63.33 mm PWd: 8.43 (7-11mm) Ascending Ao: 29.15 (22-36mm) LVDs: 49.44 (25-40mm) Aortic Root: 34.78 mm Volumes Left Atrial Volume (Systole) LA ESV Index: 54.80 mL/m2 Aortic Valve AoV Peak Seamus.: 1.02 m/s AO Peak Gr.: 4.18 mmHg LVOT Max P.91 mmHg AO Mean Gr.: 2.06 mmHg LVOT Mean P.81 mmHg LVOT Max V: 0.69 m/s AO V2 VTI: 20.21 cm LVOT Mean V: 0.40 m/s CODY (VTI): 2.23 cm2 LVOT V1 VTI: 13.79 cm Mitral Valve E/A Ratio: 2.33 MV Decel. Time: 211.34 ms MV E Max Seamus.: 1.09 m/[place] [address] 2 D/M-MODE ECHOCARDIOGRAM Name: MARIA DEL ROSARIOESTHER BRITT Room: [address] IN .R.#: [id number] Admission: 02/23/19 Attend Phys: Dung Davis Discharge: Date of : 46 Date of Service: 02/28/19 1603 Report #: [id number] MV PHT: 61.29 ms MVA (PHT): 3.59 cm2 TDI E/Lateral E': 13.63 E/Medial E': 27.25 Medial E' Seamus.: 0.04 m/s Lateral E' Seamus.: 0.08 m/s Pulmonary Valve PV Peak Seamus.: 0.74 m/s PV Peak Gr.: 2.21 mmHg Tricuspid Valve RAP Estimate: 5.00 mmHg TR Peak Gr.: 30.34 mmHg RVSP: 35.00 mmHg PA Pressure: 35.00 mmHg Left Ventricle Left ventricle is moderately dilated. There is global hypokinesis of the left ventricle. There is normal left ventricular wall thickness. Left ventricular systolic function is severely decreased. LVEF is 20-25%. Transmitral Doppler flow pattern suggests restrictive physiology. Right Ventricle Right ventricle is mildly dilated. The right ventricular systolic function is normal. Pacemaker lead is present in the right ventricle. Atria Left atrium is moderately dilated. Right atrium is moderately dilated. Aortic Valve The aortic valve is normal in structure. No aortic regurgitation is present. There is no aortic valvular stenosis. Mitral Valve The mitral valve is normal in structure. Mild mitral regurgitation. No evidence of mitral valve stenosis. Tricuspid Valve The tricuspid valve is normal in structure. Mild tricuspid regurgitation. Mild pulmonary hypertension. The RVSP is 40-45 mmHg. Pulmonic Valve The pulmonary valve is normal in structure[place] [address] 2 D/M-MODE ECHOCARDIOGRAM Name: ESTHER MIX Room: [address] IN ..#: [id number] Admission: 02/23/19 Attend Phys: Dung Davis Discharge: Date of : 46 Date of Service: 02/28/19 1603 Report #: [id number] regurgitation. Great Vessels The aortic root is normal in size. IVC is normal in size and collapses >50% with inspiration. Pericardium There is no pericardial effusion. <Conclusion> Left ventricle is moderately dilated. There is normal left ventricular wall thickness. Left ventricular systolic function is severely decreased. LVEF is 20-25%. Transmitral Doppler flow pattern suggests restrictive physiology. Pacemaker lead is present in the right ventricle. Right ventricle is mildly dilated. Left atrium is moderately dilated. Right atrium is moderately dilated. Mild mitral regurgitation. Mild tricuspid regurgitation. Mild pulmonary hypertension. The RVSP is 40-45 mmHg. IVC is normal in size and collapses >50% with inspiration. <ELECTRONICALLY SIGNED> By: Josemanuel Hernandes MD, FACC 02/28/19 1603 160 160 Josemanuel Hernandes MD, FACC /INF
[2019-03-01] MEDS ORDERED: ZYRTEC10 M5 PO (00:06)
[2019-03-01 08:11] VITALS: BP 138/72
[2019-03-01 14:00] VITALS: BP 140/77
[2019-03-01 20:00] VITALS: BP 160/80
[2019-03-02 07:50] VITALS: BP 119/51
[2019-03-02 16:00] VITALS: BP 114/73
[2019-03-02 19:30] VITALS: BP 175/79
[2019-03-03 07:59] VITALS: BP 112/40
[2019-03-03 16:00] VITALS: BP 115/66
[2019-03-03 20:00] VITALS: BP 121/67
[2019-03-04 06:59] LABS: CREATININE 1.3 mg/dL (0.6-1.3); MAGNESIUM 1.9 mg/dL (1.8-2.4)
[2019-03-04 09:10] VITALS: BP 126/58
[2019-03-04 18:04] VITALS: BP 130/64
[2019-03-05 09:10] VITALS: BP 143/66
[2019-03-05 20:00] VITALS: BP 133/55
[2019-03-06] VITALS (10 sets, daily range): BP systolic 95–148; BP diastolic 49–95
[2019-03-06 05:54] LABS: CALCIUM 8.2 mg/dL (8.5-10.1); CREATININE 1.3 mg/dL (0.6-1.3); POTASSIUM 3.9 mmol/L (3.5-5.1)
--- NOTE | 2019-03-06 13:54 | TEE ---
[place] [address] TRANSESOPHAGEAL ECHOCARDIOGRAM Name: ESTHER MIX Room: [address] IN [facility]#: [id number] Admission: 02/23/19 Attend Phys: Dung Davis Discharge: Date of : 46 Date of Service: 03/06/19 1353 Report #: [id number] THIS REPORT FOR: //name// APPROVED REPORT Study performed: 03/06/2019 13:05:39 EXAM: Transesophageal Echocardiogram Patient Location: In-Patient Room #: [facility] Status: routine BSA: 1.84 HR: 76 bpm BP: 139/74 mmHg Rhythm: NSR Other Information Study Quality: Good Indications rule out valvular vegetation Echo Enhancing Agent Indication: Rule out Shunt Agent(s) / Amount(s) Used: Agitated Saline 20 cc Comments: 2 bubble studies Procedure After obtaining informed consent, patient underwent transesophageal echo in the [employer]. Type of Sedation : Conscious Sedation Sedation was administered by Mery. Sedation start time: 1315 Case end Time: 1330 Sedation was achieved intravenously with: Versed (5) Fentanyl (75) Transesophageal probe was inserted and advanced into esophagus without difficulty by Chilo Norris MD, FACC. Echo enhancement indication: R/O Septal defect. Echo enhancement agent administered: Agitated Saline The JUDSNO was performed without complications. Throughout the procedure, the blood pressure, pulse oximetry, cardiac rhythm, and rate were monitored. The patient tolerated the procedure without adverse effects. Recovery from conscious sedation was uneventful [place] [address] TRANSESOPHAGEAL ECHOCARDIOGRAM Name: ESTHER MIX Room: [address] IN [facility]#: [id number] Admission: 02/23/19 Attend Phys: Dung Davis Discharge: Date of : 46 Date of Service: 03/06/19 1353 Report #: [id number] Left Ventricle Left ventricle is mildly dilated. There is global hypokinesis of the left ventricle. There is normal left ventricular wall thickness. Left ventricular systolic function is severely decreased. LVEF is 25-30%. Right Ventricle The right ventricle is normal size. The right ventricular systolic function is normal. Pacemaker lead is present in the right ventricle. Atria Left atrium is mildly dilated. No thrombus is visualized in the left atrium or appendage. Interatrial septum is intact without evidence of ASD or PFO. The right atrium size is normal. Aortic Valve The aortic valve is normal in structure. no vegetations noted No aortic regurgitation is present. There is no aortic valvular stenosis. Mitral Valve The mitral valve is normal in structure. Moderate mitral regurgitation. No evidence of mitral valve stenosis. Tricuspid Valve The tricuspid valve is normal in structure. Mild tricuspid regurgitation. Pulmonic Valve The pulmonary valve is normal in structure. There is no pulmonic valvular regurgitation. Great Vessels The aortic root is normal in size. mild plaque noted Pericardium There is no pericardial effusion. <Conclusion> LVEF is 25-30%. Left atrium is mildly dilated. No thrombus is visualized in the left atrium or appendage. The aortic valve is normal in structure[place] [address] TRANSESOPHAGEAL ECHOCARDIOGRAM Name: ESTHER MIX Room: [address] IN M.R.#: [id number] Admission: 02/23/19 Attend Phys: Dung Davis Discharge: Date of : 46 Date of Service: 03/06/19 135 Report #: [id number] Moderate mitral regurgitation. Interatrial septum is intact without evidence of ASD or PFO. <ELECTRONICALLY SIGNED> By: Chilo Norris MD, FACC 03/06/19 1353 52 135 Chilo Norris MD, FACC /INF
[2019-03-07 07:50] VITALS: BP 113/51
[2019-03-07 17:20] VITALS: BP 119/55
[2019-03-07 20:00] VITALS: BP 138/67
[2019-03-08] VITALS: BP 116/57
[2019-03-08 06:12] LABS: POTASSIUM 4.2 mmol/L (3.5-5.1)
[2019-03-08 06:41] LABS: CALCIUM 8.4 mg/dL (8.5-10.1); CREATININE 1.1 mg/dL (0.6-1.3); MAGNESIUM 1.9 mg/dL (1.8-2.4)
[2019-03-08 08:30] VITALS: BP 108/42
[2019-03-08 16:16] VITALS: BP 110/58
[2019-03-08 20:00] VITALS: BP 141/78
[2019-03-09 04:00] LABS: HEMATOCRIT 30.5 % (37.0-47.0); HEMOGLOBIN 10.2 gm/dL (12.0-15.0); MCH 29.1 pg (26.0-34.0); MCHC 33.4 g/dL (28.0-37.0); MPV 10.8 fl. (7.2-11.1); RBC 3.51 mil/uL (4.20-5.00); RDW-CV 15.7 % (10.5-14.5); WBC 8.3 thou/uL (4.0-11.0)
[2019-03-09 04:12] LABS: CALCIUM 8.2 mg/dL (8.5-10.1); CREATININE 1.3 mg/dL (0.6-1.3); MAGNESIUM 1.9 mg/dL (1.8-2.4); POTASSIUM 4.3 mmol/L (3.5-5.1)
[2019-03-09 07:55] VITALS: BP 143/50
[2019-03-09 17:11] VITALS: BP 126/59
[2019-03-09 20:00] VITALS: BP 129/69
[2019-03-10 08:10] VITALS: BP 119/65
--- NOTE | 2019-03-10 10:29 | EKG ---
[place] [address] ELECTROCARDIOGRAM REPORT Name: ESTHER MIX Room: [address] ADM IN .R.#: [id number] Admission: 02/23/19 Attend Phys: Charlie Oliva Discharge: Date of : 46 Report #: [id number] THIS REPORT FOR: //name// [facility] Test Date: 2019-03-10 Test Time: 10:14:13 Pat Name: ESTHER MIX Department: Room: [address] Gender: F Financial Assistant: : 1950 Requested By: Chilo Norris Order Number: [id number] Ron MD: Chilo Norris Measurements Intervals [place] Rate: 63 P: 59 IA: 210 QRS: 9 QRSD: 97 T: 80 QT: 508 QTc: 521 Interpretive Statements Sinus rhythm Low voltage, extremity leads Prolonged QT interval Compared to ECG 01/02/2019 16:16:34 No significant changes Electronically Signed On 03-10-2019 10:29:06 [employer] by Chilo Norris [email or web address] <ELECTRONICALLY SIGNED> By: Chilo Norris MD, [facility] 03/10/19 1029 1014 1014 Chilo Norris MD, [facility] /EPI
[2019-03-10 15:30] VITALS: BP 109/52
[2019-03-10 21:00] VITALS: BP 118/56
[2019-03-11 02:07] LABS: GLYCOHEMOGLOBIN (HGB A1C) 10.2 % (4.8-5.6)
[2019-03-11 04:30] VITALS: BP 116/79
[2019-03-11 16:19] VITALS: BP 110/60
[2019-03-11 19:30] VITALS: BP 127/68
[2019-03-12 07:51] VITALS: BP 118/62
[2019-03-12 16:00] VITALS: BP 136/61
[2019-03-12 20:00] VITALS: BP 133/62
[2019-03-13 07:52] VITALS: BP 138/73
[2019-03-13] MEDS ORDERED: RIFAMPIN 300 M300 MG PO (11:22)
--- NOTE | 2019-03-13 16:21 | CON ---
[address] [address] CONSULTATION Name: ESTHER MIX Room: [address] IN .R.#: [id number] Admission: 02/23/19 Attend Phys: Charlie Oliva Discharge: Date of : 46 Report #: [id number] THIS REPORT FOR: //name// CC: LEN Bellamy DATE OF SERVICE: 03/10/2019 CARDIOLOGY CONSULTATION HISTORY OF PRESENT ILLNESS: The patient is a 68-year-old white female who I was asked to see in the hospital today because of her history of ICD placement. The patient has an extensive past medical history. She has a long history of a nonischemic cardiomyopathy. Previous heart catheterization apparently showed no significant coronary artery disease. She has a long history of PAF and has been chronically anticoagulated. She had her first ICD apparently implanted in 2003 for primary prevention of sudden . However, the ICD apparently had to be extracted from her left subclavicular area in 2005 after dialysis catheter got infected with staph. Her last cardiac catheterization in 2017 showed ejection fraction 20% with no significant coronary artery disease. The patient had her second ICD implanted in 2017 at [facility] using a single lead. She apparently had peripheral artery embolism in 2018 after she was off anticoagulation for polypectomy. She apparently embolized to her feet and required toe amputations. She apparently had previous cardiac mapping and SVT ablation in [address] Gonzales at [facility]. The patient was last admitted here to [facility] in December with heart failure, osteomyelitis, anemia, chronic kidney disease. She is not very active at this time. She was admitted this time on 02/23. She came to the Emergency Room complaining of foot pain. She is felt to have cellulitis. She developed MRSA in her blood stream. The patient has been treated with antibiotics, but apparently could not clear the bacteremia. I was asked to see her for consideration of removal of her ICD. The patient denies recent chest pain, increased shortness of breath, palpitations, syncope. She has had a bloody nose recently. PAST MEDICAL HISTORY: She has had chronic kidney disease, diabetes, hypertension, paroxysmal atrial fibrillation. She denies any recent discharges of her defibrillator. She has had toe amputation, back surgery, cholecystectomy. CURRENT MEDICATIONS: Consists of Lipitor, carvedilol, Nexium, Flonase, Lasix, insulin, DuoNeb treatments, Synthroid, losartan, potassium, Xarelto. ALLERGIES: SHE HAS INTOLERANCE TO CIPRO, CODEINE, MORPHINE, [place] [address] CONSULTATION Name: MARIA DEL ROSARIOESTHERLUIS BRITT Room: [address] M.R.#: [id number] Admission: 02/23/19 Attend Phys: Charlie Oliva Discharge: Date of : 46 Report #: [id number] FAMILY HISTORY: Negative for heart disease. SOCIAL HISTORY: She is . She and her live in [place]. No smoking or alcohol abuse. REVIEW OF SYSTEMS: She has had no history of stroke, asthma, liver disease. She has chronic kidney disease. No cancer. No psychiatric illness. No chronic skin condition. PHYSICAL EXAMINATION: GENERAL: Revealed an elderly frail appearing female, lying in bed. She appeared in no acute distress. VITAL SIGNS: She had a blood pressure of 120/60, pulse 60. She is afebrile. HEENT: She is anicteric. Conjunctivae pink. Mucous membranes are moist. NECK: Veins do not appear distended. CHEST: Clear to auscultation. CARDIOVASCULAR: Regular rate and rhythm. ABDOMEN: Soft. EXTREMITIES: Had no pitting edema. SKIN: Cool and dry. NEUROLOGIC: Nonfocal. DIAGNOSTIC STUDIES: There is no ECG in the chart. Her workup so far during her 3 week hospitalization included a JUDSON that was performed 3 days ago that showed an ejection fraction estimated at 25%, left atrial enlargement, no thrombus, left atrial appendage. No valvular vegetations were noted. There was moderate mitral regurgitation. No PFO. Her x-rays that have been performed since her hospitalization include a chest x-ray on 02/27 that showed cardiomegaly, some atelectasis. No significant pulmonary edema. LABORATORY DATA: Her lab work, her sodium 139, BUN 29, creatinine 1.3, it has been as high as 1.9 earlier this month. Her liver function studies were normal. Albumin 2.1. BNP 16,941. Troponin 0.08. Her white blood cell count 8.3, hemoglobin 10.2, it has been as low as 9.3, last September. IMPRESSION AND RECOMMENDATIONS: 1. History of atrial flutter. Previous ablation. The patient has been on Xarelto and beta amilcar. 2. Previous toe amputations after she embolized. Previous arterial Doppler done last August showed significant peripheral artery disease. 3. Cardiomyopathy. The patient has been on a beta amilcar and an ARB. I would consider switching to Entresto. The patient did not appear to be a very good candidate for Aldactone because of her chronic kidney disease. 4. Diabetes. 5. Hyperlipidemia. The patient is on a statin drug. 6. Chronic kidney disease. The patient has been dialyzed in the past. [address] [address] CONSULTATION Name: GILMAR MIXTY BALWINDER Room: [address] IN .R.#: [id number] Admission: 02/23/19 Attend Phys: Charlie Oliva Discharge: Date of : 46 Report #: [id number] 7. Bacteremia. [place] to be secondary to the cellulitis. Unfortunately, the bacteremia cannot be cleared. Concerned about infection of the ICD and lead. Recommend removal. 8. Anemia. No history of bleeding. <ELECTRONICALLY SIGNED> By: Chilo Norris MD, FACC 03/13/19 1621 0923 1008Davicharlie Norris MD, FACC /nt
[2019-03-13] MEDS ORDERED: LASIX 20 MG TAB20 MG PO (18:47)
[2019-03-13] MEDS ORDERED: MUCINEX600 MG PO (18:47)
[2019-03-13] MEDS ORDERED: BANOPHEN25 MG PO (18:47)
[2019-03-13] MEDS ORDERED: PAIN RELIEVER500 MG PO (18:47)
[2019-03-13] MEDS ORDERED: COZAAR 25 MG TA25 M1 PO (18:47)
[2019-03-13] MEDS ORDERED: ULTRAM 50MG TAB50 MG PO (18:47)
[2019-03-13] MEDS ORDERED: COREG3.125 MG PO (18:47)
[2019-03-13 20:51] VITALS: BP 132/68
== END 2019-03-13 20:55 | disposition short-term general hospital (02) | DRG 853 ==
LOC: M.ERS 14:05 → M.3W 16:29 → M.TBA-ER 16:29 → M.3W 19:14
PROVIDERS: Emergency Medicine Emergency Medical Services; Family Medicine; Internal Medicine; ADMIT Internal Medicine
PROC: 0JBQ0ZZ Excision of Right Foot Subcutaneous Tissue and Fascia, Open Approach (ICD-10-PCS; principal; 2019-02-27)
PROC: 0JPV3XZ Removal of Tunneled Vascular Access Device from Upper Extremity Subcutaneous Tissue and Fascia, Percutaneous Approach (ICD-10-PCS; 2019-03-04)
PROC: B24BZZ4 Ultrasonography of Heart with Aorta, Transesophageal (ICD-10-PCS; 2019-03-06)
DX: A41.02 Sepsis due to Methicillin resistant Staphylococcus aureus (principal); E43 Unspecified severe protein-calorie malnutrition; N17.0 Acute kidney failure with tubular necrosis; N18.6 End stage renal disease; N18.4 Chronic kidney disease, stage 4 (severe); I42.8 Other cardiomyopathies; I13.2 Hypertensive heart and chronic kidney disease with heart failure and with stage 5 chronic kidney disease, or end stage renal disease; I50.42 Chronic combined systolic (congestive) and diastolic (congestive) heart failure; L03.116 Cellulitis of left lower limb; L03.115 Cellulitis of right lower limb; E11.22 Type 2 diabetes mellitus with diabetic chronic kidney disease; I25.10 Atherosclerotic heart disease of native coronary artery without angina pectoris; E11.319 Type 2 diabetes mellitus with unspecified diabetic retinopathy without macular edema; Z96.1 Presence of intraocular lens; E11.40 Type 2 diabetes mellitus with diabetic neuropathy, unspecified; E03.9 Hypothyroidism, unspecified; I34.0 Nonrheumatic mitral (valve) insufficiency; I48.0 Paroxysmal atrial fibrillation; D64.9 Anemia, unspecified; K21.9 Gastro-esophageal reflux disease without esophagitis; E78.5 Hyperlipidemia, unspecified; E11.621 Type 2 diabetes mellitus with foot ulcer; Z89.429 Acquired absence of other toe(s), unspecified side; Z79.01 Long term (current) use of anticoagulants; Z90.49 Acquired absence of other specified parts of digestive tract; Z98.1 Arthrodesis status; Z89.421 Acquired absence of other right toe(s); Z79.4 Long term (current) use of insulin; Z79.899 Other long term (current) drug therapy; Z88.1 Allergy status to other antibiotic agents; Z98.41 Cataract extraction status, right eye; Z88.5 Allergy status to narcotic agent; Z88.0 Allergy status to penicillin; Z88.2 Allergy status to sulfonamides; Z88.8 Allergy status to other drugs, medicaments and biological substances; Z95.810 Presence of automatic (implantable) cardiac defibrillator; Z68.25 Body mass index [BMI] 25.0-25.9, adult

== ENCOUNTER → 2019-04-25 | Outpatient (CLI) | payer OTHER ==
[~2019-04-25] MED LIST changes: +BANOPHEN25 MG PO; +COREG3.125 MG PO; +COZAAR 25 MG TA25 M1 PO; +MUCINEX600 MG PO; +PAIN RELIEVER500 MG PO; +RIFAMPIN 300 M300 MG PO; +ULTRAM 50MG TAB50 MG PO; +ZYRTEC10 M5 PO
[2019-04-25 12:21] LABS: ABSOLUTE EOSINOPHILS 0.2 thou/uL (0.0-0.7); ABSOLUTE LYMPHOCYTES 1.9 thou/uL (0.8-5.3); ABSOLUTE MONOCYTES 0.5 thou/uL (0.0-1.2); ABSOLUTE NEUTROPHILS 3.9 thou/uL (1.6-8.1); BASOPHILS 0.7 %; EOSINOPHILS 3.7 %; HEMATOCRIT 31.6 % (37.0-47.0); HEMOGLOBIN 10.6 gm/dL (12.0-15.0); LYMPHOCYTES 29.1 %; MCH 29.9 pg (26.0-34.0); MCHC 33.6 g/dL (28.0-37.0); MONOCYTES 7.5 %; MPV 10.7 fl. (7.2-11.1); NUCLEATED RBCS 0 /100WBC; PLATELET COUNT* 197 thou/uL (150-400); RBC 3.55 mil/uL (4.20-5.00); RDW-CV 14.9 % (10.5-14.5); WBC 6.6 thou/uL (4.0-11.0)
[2019-04-25 12:45] LABS: CALCIUM 8.5 mg/dL (8.5-10.1); CREATININE 1.3 mg/dL (0.6-1.3); POTASSIUM 3.4 mmol/L (3.5-5.1); TOTAL BILIRUBIN 0.6 mg/dL (<0.1-1.0); TOTAL PROTEIN 6.7 g/dL (6.4-8.2)
[2019-04-25 13:25] LABS: ESR (SEDRATE) 35 mm/hr (0-30)
== END ==
LOC: M.LAB 11:50
PROVIDERS: Specialist
DX: M86.9 Osteomyelitis, unspecified (principal); B95.62 Methicillin resistant Staphylococcus aureus infection as the cause of diseases classified elsewhere; Z79.2 Long term (current) use of antibiotics

== ENCOUNTER → 2019-05-02 | Outpatient (CLI) | payer OTHER ==
[2019-05-02 13:31] LABS: ABSOLUTE BASOPHILS 0.1 thou/uL (0.0-0.2); ABSOLUTE EOSINOPHILS 0.2 thou/uL (0.0-0.7); ABSOLUTE LYMPHOCYTES 1.8 thou/uL (0.8-5.3); ABSOLUTE MONOCYTES 0.4 thou/uL (0.0-1.2); ABSOLUTE NEUTROPHILS 3.9 thou/uL (1.6-8.1); BASOPHILS 0.9 %; EOSINOPHILS 3.8 %; HEMATOCRIT 35.8 % (37.0-47.0); HEMOGLOBIN 11.7 gm/dL (12.0-15.0); LYMPHOCYTES 28.4 %; MCH 29.4 pg (26.0-34.0); MCHC 32.7 g/dL (28.0-37.0); MCV 89.9 fL (80.0-100.0); MONOCYTES 6.2 %; MPV 11.5 fl. (7.2-11.1); NUCLEATED RBCS 0 /100WBC; PLATELET COUNT* 238 thou/uL (150-400); POLYS 60.7 %; RBC 3.98 mil/uL (4.20-5.00); RDW-CV 14.8 % (10.5-14.5); WBC 6.4 thou/uL (4.0-11.0)
[2019-05-02 13:44] LABS: ALBUMIN 3.2 g/dL (3.4-5.0); CALCIUM 8.6 mg/dL (8.5-10.1); CREATININE 1.4 mg/dL (0.6-1.3); POTASSIUM 4.3 mmol/L (3.5-5.1); TOTAL BILIRUBIN 0.7 mg/dL (<0.1-1.0); TOTAL PROTEIN 7.2 g/dL (6.4-8.2)
[2019-05-02 14:31] LABS: ESR (SEDRATE) 27 mm/hr (0-30)
== END ==
LOC: M.LAB 12:59
PROVIDERS: Specialist
DX: E11.621 Type 2 diabetes mellitus with foot ulcer (principal)

== ENCOUNTER → 2019-07-25 | Outpatient (CLI) | payer OTHER | LOC: M.ULTRA 15:30 | PROVIDERS: ATTEND Podiatrist Foot & Ankle Surgery | DX: I82.402 Acute embolism and thrombosis of unspecified deep veins of left lower extremity (principal); R40.3 Persistent vegetative state ==

== ENCOUNTER 2020-02-20 09:48 | Inpatient (IN) | payer OTHER ==
[~2020-02-20] VITALS: Ht 177.8 cm; Wt 81.6 kg
[2020-02-20 10:13] VITALS: BP 112/65
[2020-02-20 10:26] LABS: ABSOLUTE BASOPHILS 0.1 thou/uL (0.0-0.2); ABSOLUTE EOSINOPHILS 0.1 thou/uL (0.0-0.7); ABSOLUTE LYMPHOCYTES 1.8 thou/uL (0.8-5.3); ABSOLUTE MONOCYTES 0.8 thou/uL (0.0-1.2); ABSOLUTE NEUTROPHILS 7.7 thou/uL (1.6-8.1); BASOPHILS 1.3 %; EOSINOPHILS 0.5 %; HEMATOCRIT 38.5 % (37.0-47.0); HEMOGLOBIN 12.6 gm/dL (12.0-15.0); LYMPHOCYTES 17.6 %; MCH 28.3 pg (26.0-34.0); MCHC 32.7 g/dL (28.0-37.0); MCV 86.6 fL (80.0-100.0); MONOCYTES 7.5 %; MPV 10.4 fl. (7.2-11.1); NUCLEATED RBCS 0 /100WBC; PLATELET COUNT* 180 thou/uL (150-400); POLYS 73.1 %; RBC 4.45 mil/uL (4.20-5.00); RDW-CV 15.6 % (10.5-14.5); WBC 10.5 thou/uL (4.0-11.0)
[2020-02-20 10:37] LABS: APTT 26.1 Seconds (25.0-31.3)
[2020-02-20 10:44] LABS: CALCIUM 8.4 mg/dL (8.5-10.1); CREATININE 1.4 mg/dL (0.6-1.3); POTASSIUM 4.9 mmol/L (3.5-5.1)
[2020-02-20 10:50] LABS: ALBUMIN 2.7 g/dL (3.4-5.0); CK-MB MASS 0.9 ng/mL (<0.5-3.6); TOTAL BILIRUBIN 0.7 mg/dL (<0.1-1.0)
[2020-02-20] MEDS ORDERED: POTASSIUM20 PO (14:14)
[2020-02-20] MEDS ORDERED: COZAAR 25 MG TA25 M1 PO (14:24)
[2020-02-20 14:54] VITALS: BP 106/55
[2020-02-20 16:00] VITALS: BP 113/57
--- NOTE | 2020-02-20 16:34 | EKG ---
[place] [address] ELECTROCARDIOGRAM REPORT Name: ESTHER MIX Room: [address] M.R.#: [id number] Admission: 02/20/20 Attend Phys: Selvin Vaughn, Discharge: Date of : 46 Date of Service: 02/20/20 1006 Report #: [id number] THIS REPORT FOR: //name// 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 : [id number] Requested By: Cuco Tabor Order Number: [id number] MD: Josemanuel Hernandes Measurements Intervals [place] Rate: 76 P: 85 [place]: 217 QRS: 28 QRSD: 111 T: 74 QT: 466 QTc: 525 Interpretive Statements Sinus rhythm with first-degree AV block Low voltage, extremity leads Prolonged QT interval Baseline wander in lead(s) V1,V3 Compared to ECG 03/10/2019 10:14:13 No significant changes Electronically Signed On 02-20-2020 16:34:16 [employer] by Josemanuel Hernandes [email or web address] <ELECTRONICALLY SIGNED> By: Josemanuel Hernandes MD, FACC 02/20/20 1634 1006 1006 Josemanuel Hernandes MD, [facility] /EPI
[2020-02-20 17:00] VITALS: BP 109/59
[2020-02-20 20:00] VITALS: BP 121/64
[2020-02-21] VITALS: BP 127/61
[2020-02-21 03:54] LABS: ABSOLUTE EOSINOPHILS 0.1 thou/uL (0.0-0.7); ABSOLUTE LYMPHOCYTES 2.6 thou/uL (0.8-5.3); ABSOLUTE MONOCYTES 0.6 thou/uL (0.0-1.2); ABSOLUTE NEUTROPHILS 3.8 thou/uL (1.6-8.1); BASOPHILS 0.7 %; EOSINOPHILS 1.4 %; HEMATOCRIT 34.9 % (37.0-47.0); HEMOGLOBIN 11.2 gm/dL (12.0-15.0); LYMPHOCYTES 36.2 %; MCH 27.9 pg (26.0-34.0); MCHC 32.2 g/dL (28.0-37.0); MCV 86.6 fL (80.0-100.0); MONOCYTES 9.1 %; MPV 10.6 fl. (7.2-11.1); NUCLEATED RBCS 0 /100WBC; PLATELET COUNT* 149 thou/uL (150-400); POLYS 52.6 %; RBC 4.03 mil/uL (4.20-5.00); RDW-CV 15.6 % (10.5-14.5); WBC 7.1 thou/uL (4.0-11.0)
[2020-02-21 03:56] LABS: CALCIUM 8.2 mg/dL (8.5-10.1); CREATININE 1.5 mg/dL (0.6-1.3); POTASSIUM 4.5 mmol/L (3.5-5.1)
[2020-02-21 04:00] VITALS: BP 97/58
[2020-02-21 08:30] VITALS: BP 122/65
--- NOTE | 2020-02-21 08:39 | CON ---
[address] [address] CONSULTATION Name: ESTHER MIX Room: [address] M.R.#: [id number] Admission: 02/20/20 Attend Phys: Selvin Vaughn MD Discharge: Date of : 46 Report #: [id number] THIS REPORT FOR: cc: Katlyn Tello Linda J. DO ~ Josemanuel Hernandes MD [facility] DATE OF SERVICE: 02/20/2020 CARDIOLOGY CONSULTATION INDICATION: Shortness of breath and chest discomfort. HISTORY OF PRESENT ILLNESS: The patient is a 69-year-old white female who is well known to us. She has a history of a nonischemic cardiomyopathy. Last year, she had an ICD with leads removed for persistent bacteremia felt to be possibly due to her implanted defibrillator. She has no defibrillator at this point in time. She has a history of severe LV systolic dysfunction with ejection fraction being between 20% and 30% on noninvasive studies. By remote catheterization, she has no coronary artery disease. She has a history of SVT, status post ablation in 2018. She has a history of peripheral vascular disease. She has had some cellulitis of her lower extremities with some toe amputations in the past couple of years. She presented to the hospital with complaints of mid sternal and left upper chest discomfort, worse with cough and deep breath. The pain had been persistent for several hours. Initial troponin was unremarkable. EKG in the Emergency Room shows a sinus rhythm with first-degree AV block. I do not appreciate any acute ST segment depression or elevation. PAST MEDICAL HISTORY: Significant for: 1. Nonischemic cardiomyopathy. 2. SVT, status post ablation. 3. ICD implanted for primary prevention and then removed due to persistent bacteremia. 4. Insulin requiring type 2 diabetes. 5. Hypothyroidism. 6. Peripheral vascular disease. PAST SURGICAL HISTORY: 1. D and C in 1979. 2. Sinus surgery x 2. 3. Ear [place] [address] [address] CONSULTATION Name: MARIA DEL ROSARIOESTHER BALWINDER Room: [address] Lisa Navarro#: [id number] Admission: 02/20/20 Attend Phys: Selvin Vaughn MD Discharge: Date of : 46 Report #: [id number] 4. Cholecystectomy in 1996. 5. ICD removed in 2005 and 2019 or 2019. 6. History of back surgery. 7. Left arm shunt removed in 2004. 8. Right eye retinopathy with cataract removal and implant 2006. 9. Rectocele and cystocele surgery. 10. Right toe amputation x 3. 11. Dialysis [id number]. ALLERGIES: CEFAZOLIN, CIPROFLOXACIN, CODEINE, CEPHALEXIN, PENICILLIN, QUINOLONE, SULFA, ORANGE JUICE, CIPROFLOXACIN, LIDOCAINE, MORPHINE, OXYCODONE. CURRENT MEDICATIONS: Bupropion XL 150 mg daily, Flonase 0.5 mg nasal spray at bedtime, Xarelto 15 mg with dinner, ipratropium albuterol q.6 hours p.r.n., Ativan 0.5 mg q. 8 hours p.r.n., vitamin D3 2000 units b.i.d., Humalog insulin subcutaneous at bedtime, cetirizine 1 tablet daily, Bentyl 10 mg q.i.d., Lantus 35 units at bedtime, potassium chloride 20 mEq b.i.d. FAMILY HISTORY: Noncontributory. SOCIAL HISTORY: The patient is and lives with her in [place]. She denies use of tobacco or alcohol. PHYSICAL EXAMINATION: VITAL SIGNS: Blood pressure 106/55, pulse 76 and regular. GENERAL: This is an elderly white female, in no distress. HEENT: Head is normocephalic, atraumatic. Extraocular muscles intact. Mucous membranes are dry. NECK: Shows no jugular venous distention. I do not appreciate bruit. CHEST: Reveals clear breath sounds bilaterally. CARDIOVASCULAR: Reveals a regular rhythm with normal S1 and S2. I do not appreciate gallop or murmur. ABDOMEN: Reveals normal bowel sounds. EXTREMITIES: Shows 1+ edema of the right lower extremity with a dressing to the right foot. No edema of left lower extremity. SKIN: Dry. LABORATORY DATA: Reviewed. Sodium 138, potassium 4.9, chloride 107, bicarbonate 25, BUN 25, creatinine 1.4, serum glucose 208. EGFR 37. Initial troponin less than 0.06. NT-proBNP 6718. White blood cell count 10.5, hemoglobin 12.6, platelet count 180,000. Chest x-ray shows some mild cardiomegaly without significant pulmonary vascular congestion. [address] [place] [address] CONSULTATION Name: ESTHER MIX Room: [address] Lisa M.R.#: [id number] Admission: 02/20/20 Attend Phys: Selvin Vaughn MD Discharge: Date of : 46 Report #: [id number] IMPRESSION AND RECOMMENDATIONS: 1. Ptaio-iq-mrpfmie systolic heart failure with moderately elevated NT-proBNP. IV Lasix given in bolus fashion in the Emergency Room. We will follow I's and O's and a.m. labs and consider titration of diuretics as needed. 2. Nonischemic cardiomyopathy. Titrate heart failure medications as tolerated. 3. Hypertension. Blood pressure currently low normal on current cardiac regimen. 4. Dyslipidemia. 5. Chronic renal insufficiency, presently stable. 6. History of ICD removal with bacteremia. No plans to replace at this time. 7. History of paroxysmal supraventricular tachycardia and atrial fibrillation, presently stable. She is status post ablation and chronically anticoagulated. <ELECTRONICALLY SIGNED> By: Josemanuel Hernandes MD, FACC 02/21/20 0839 1803 2027Miclashaun Hernandes MD, FACC /nt
[2020-02-21 12:00] VITALS: BP 116/72
--- NOTE | 2020-02-21 13:42 | 2DMMODE ---
[place] [address] 2 D/M-MODE ECHOCARDIOGRAM Name: ESTHER MIX Room: [address] IN M.R.#: [id number] Admission: 02/21/20 Attend Phys: Selvin Vaughn, Discharge: Date of : 46 Date of Service: 02/21/20 1342 Report #: [id number] THIS REPORT FOR: cc: Katlyn Tello,Katlyn Starkey,Chilo Kelley MD [facility] ~ APPROVED REPORT Study performed: 02/21/2020 10:46:01 EXAM: Comprehensive 2D, Doppler, and color-flow Echocardiogram Patient Location: In-Patient Room #: Critical access hospital Status: routine BSA: 2.00 HR: 67 bpm BP: 122/65 mmHg Rhythm: NSR Other Information Study Quality: Good Indications Chest Pain 2D Dimensions IVSd: 11.44 (7-11mm) LVOT Diam: 19.29 (18-24mm) LVDd: 57.30 mm PWd: 10.34 (7-11mm) Ascending Ao: 32.34 (22-36mm) LVDs: 47.47 (25-40mm) Aortic Root: 33.78 mm Volumes Left Atrial Volume (Systole) LA ESV Index: 53.60 mL/m2 Aortic Valve AoV Peak Seamus.: 1.05 m/s AO Peak Gr.: 4.39 mmHg LVOT Max P.49 mmHg AO Mean Gr.: 2.41 mmHg LVOT Mean P.73 mmHg LVOT Max V: 0.61 m/s AO V2 VTI: 21.50 cm LVOT Mean V: 0.39 m/s CODY (VTI): 1.86 cm2 LVOT V1 VTI: 13.66 [place] [address] 2 D/M-MODE ECHOCARDIOGRAM Name: MEKHIFAMESTHER Rodriguez Room: [address] IN .R.#: [id number] Admission: 02/21/20 Attend Phys: Selvin Vaughn, Discharge: Date of : 46 Date of Service: 02/21/20 1342 Report #: [id number] Mitral Valve E/A Ratio: 2.04 MV Decel. Time: 186.47 ms MV E Max Seamus.: 1.05 m/s MV PHT: 54.08 ms MVA (PHT): 4.07 cm2 TDI E/Lateral E': 17.50 E/Medial E': 21.00 Medial E' Seamus.: 0.05 m/s Lateral E' Seamus.: 0.06 m/s Pulmonary Valve PV Peak Seamus.: 0.66 m/s PV Peak Gr.: 1.76 mmHg Tricuspid Valve RAP Estimate: 5.00 mmHg TR Peak Gr.: 30.74 mmHg RVSP: 35.00 mmHg PA Pressure: 35.00 mmHg Left Ventricle Left ventricle is mildly dilated. inferior akinesis noted There is normal left ventricular wall thickness. Left ventricular systolic function is severely decreased. LVEF is 25-30%. Grade IV - fixed restrictive diastolic dysfunction. Right Ventricle The right ventricle is normal size. The right ventricular systolic function is normal. Atria Left atrium is severely dilated. The right atrium size is normal. Aortic Valve Mild aortic valve sclerosis. No aortic regurgitation is present. There is no aortic valvular stenosis. Mitral Valve The mitral valve is normal in structure. Mild mitral regurgitation. No evidence of mitral valve stenosis. Tricuspid Valve The tricuspid valve is normal in structure. Mild tricuspid regurgitation. estimated pa pressure 44 [place] [address] 2 D/M-MODE ECHOCARDIOGRAM Name: ESTHER MIX Room: [address]#: [id number] Admission: 02/21/20 Attend Phys: Selvin Vaughn, Discharge: Date of : 46 Date of Service: 02/21/20 1342 Report #: [id number] Pulmonic Valve The pulmonary valve is normal in structure. There is no pulmonic valvular regurgitation. Great Vessels The aortic root is normal in size. IVC is not well visualized. Pericardium There is no pericardial effusion. <Conclusion> Left ventricle is mildly dilated. LVEF is 25-30%. inferior akinesis noted Left atrium is severely dilated. Mild aortic valve sclerosis. Mild mitral regurgitation. Mild tricuspid regurgitation. estimated pa pressure 44 mm Hg <ELECTRONICALLY SIGNED> By: Chilo Norris MD, FACC 02/21/20 1342 134 134 Chilo Norris MD, FACC /INF
[2020-02-21 16:00] VITALS: BP 103/56
[2020-02-21 20:00] VITALS: BP 93/54
[2020-02-22] VITALS: BP 93/53
[2020-02-22 04:00] VITALS: BP 103/53
[2020-02-22 04:20] LABS: ABSOLUTE BASOPHILS 0.1 thou/uL (0.0-0.2); ABSOLUTE EOSINOPHILS 0.1 thou/uL (0.0-0.7); ABSOLUTE LYMPHOCYTES 1.9 thou/uL (0.8-5.3); ABSOLUTE MONOCYTES 0.5 thou/uL (0.0-1.2); ABSOLUTE NEUTROPHILS 6.1 thou/uL (1.6-8.1); BASOPHILS 1.1 %; EOSINOPHILS 1.4 %; HEMATOCRIT 38.9 % (37.0-47.0); HEMOGLOBIN 12.5 gm/dL (12.0-15.0); MCH 28.2 pg (26.0-34.0); MCHC 32.1 g/dL (28.0-37.0); MCV 87.9 fL (80.0-100.0); MONOCYTES 6.2 %; MPV 10.4 fl. (7.2-11.1); NUCLEATED RBCS 0 /100WBC; PLATELET COUNT* 151 thou/uL (150-400); POLYS 69.3 %; RBC 4.42 mil/uL (4.20-5.00); WBC 8.8 thou/uL (4.0-11.0)
[2020-02-22 04:38] LABS: ALBUMIN 2.3 g/dL (3.4-5.0); CALCIUM 8.6 mg/dL (8.5-10.1); CREATININE 1.6 mg/dL (0.6-1.3); POTASSIUM 4.4 mmol/L (3.5-5.1); TOTAL BILIRUBIN 0.4 mg/dL (<0.1-1.0); TOTAL PROTEIN 5.6 g/dL (6.4-8.2)
[2020-02-22 08:00] VITALS: BP 110/66
[2020-02-22 11:50] VITALS: BP 107/98
[2020-02-22] MEDS ORDERED: LINEZOLID600 MG PO (15:59)
[2020-02-22] MEDS ORDERED: LASIX 40 MG TAB40 M1 PO (16:00)
[2020-02-22] MEDS ORDERED: FLOMAX0.4 MG PO (16:58)
[2020-02-22 18:16] VITALS: BP 107/98
== END 2020-02-22 18:40 | disposition home or self-care (01) | DRG 291 ==
LOC: M.ERS 09:48 → M.TBA-ER 12:02 → M.2W 17:43
PROVIDERS: Family Medicine; ADMIT Internal Medicine; ATTEND Internal Medicine
DX: I13.0 Hypertensive heart and chronic kidney disease with heart failure and stage 1 through stage 4 chronic kidney disease, or unspecified chronic kidney disease (principal); I50.43 Acute on chronic combined systolic (congestive) and diastolic (congestive) heart failure; N17.0 Acute kidney failure with tubular necrosis; N18.4 Chronic kidney disease, stage 4 (severe); I48.92 Unspecified atrial flutter; E44.1 Mild protein-calorie malnutrition; I25.110 Atherosclerotic heart disease of native coronary artery with unstable angina pectoris; Z20.822 Contact with and (suspected) exposure to COVID-19; I48.91 Unspecified atrial fibrillation; E11.22 Type 2 diabetes mellitus with diabetic chronic kidney disease; E11.319 Type 2 diabetes mellitus with unspecified diabetic retinopathy without macular edema; E11.40 Type 2 diabetes mellitus with diabetic neuropathy, unspecified; S91.301A Unspecified open wound, right foot, initial encounter; R33.9 Retention of urine, unspecified; E03.9 Hypothyroidism, unspecified; E11.51 Type 2 diabetes mellitus with diabetic peripheral angiopathy without gangrene; I42.8 Other cardiomyopathies; E78.5 Hyperlipidemia, unspecified; E11.621 Type 2 diabetes mellitus with foot ulcer; Z79.01 Long term (current) use of anticoagulants; Z89.421 Acquired absence of other right toe(s); X58.XXXA Exposure to other specified factors, initial encounter; Z95.5 Presence of coronary angioplasty implant and graft; Z79.4 Long term (current) use of insulin; Z98.41 Cataract extraction status, right eye; Z88.6 Allergy status to analgesic agent; Z88.1 Allergy status to other antibiotic agents; Z88.0 Allergy status to penicillin; Z88.2 Allergy status to sulfonamides; Z88.8 Allergy status to other drugs, medicaments and biological substances; Z95.810 Presence of automatic (implantable) cardiac defibrillator; Z90.49 Acquired absence of other specified parts of digestive tract; Y93.89 Activity, other specified; Y92.89 Other specified places as the place of occurrence of the external cause; Y99.8 Other external cause status; Z68.25 Body mass index [BMI] 25.0-25.9, adult